=== PATIENT | female | born 1935 | race Caucasian/White ===

== ENCOUNTER 2017-05-18 18:03 | Observation (INO) | payer MEDICARE ==
--- OUTSIDE RECORDS SUMMARY | 2017-05-18 18:33 | XMS REPORT ---
:1935 External Reference #:[id number] Author Organization [facility] Address [address] [place] [address] Phone [phone] Care Team Providers Name Role Phone Wilfredo Erickson MD Care Team Information Canoe Builder Unavailable Veronica Baca MD Primary Care Physician Unavailable Payers Type Date Identification Numbers Payment Provider Subscriber Medicare Primary Effective: Policy Number: Medicare Reba Grullon 2000 [id number] PayID: [id number] [address] [place] [address] [facility] Part B Policy Number: [id number] [facility] Reba Grullon PayID: [id number] [address] [place] [address] Problems Date Description Provider Status Onset: 09/04/2012 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 She had severe reaction to TST there. Allergies, Adverse Reactions, Alerts Date Description Reaction Status Severity Comments 09/04/2012 Aspirin active 11/24/2015 Flu Vaccine flushing active Medications Medication Date Status Form Strength Qnty SIG Indications Ordering Provider Wilfredo 07/25 Active Solution 60mg/ml 60mg 60 mg sc q6mon Eric Cabrales Fioricet 06/26 Active Capsules 50-300-40 14cap take 1 mg s capsule by Samra, mouth M.D. every day as needed for migraines - maximum daily dose of 1 per day Plaquenil 05/24 Active Tablets 200mg 60tab take 1 M06.4 s tablet by Samra, mouth M.D. every day ongoing Allopurinol 11/23 Active Tablets 100mg 90tab Take 1 M10.9 s Tablet By Samra, Mouth M.D. Every Day Gabapentin Active Capsules 100mg 30cap take 1 in / s the Samra, morning M.DHoma Escitalopram Active Tablets 5mg once daily Unknown Oxalate /0000 Ramipril Active Capsules 10mg 1 by mouth Unknown /0000 every day Prevagen Active Capsules 10mg Unknown /0000 Hydroxychloroquine Active Tablets 200mg take one Unknown Sulfate /0000 tablet by mouth daily Colchicine Active Capsules 0.6mg take one Unknown /0000 by mouth every day as needed for gout flare up B12 Fast Dissolve 12/22 Hx Tablets 5000mcg 90tab sl daily Dispers s Samra - M.D. 12/26 Synvisc One 11/20 Hx Soln 48mg/6ML Prefill Samra, - Syringe M.D. 12/11 Prednisone 11/07 Hx Tablets 5mg 90tab 1 by mouth M06.4 s every Samra, - other day M.D. 12/11 Fioricet 05/24 Hx Capsules 50-300-40 14cap Take 1 M06.4 mg s Capsule By Samra, - Mouth M.D. 06/26 Every Day as Needed For Pain Migraines Hydrocodone-Acetami 01/10 Hx Tablets 5-325mg 30tab 1 tab by Miles oden s mouth Pichardo, - every 6 MD 05/28 hours needed for pain Colchicine 12/21 Hx Capsules 0.6mg 90cap take one M06.4 s by mouth Samra, - every day M.D. 05/24 Lyrica 01/13 Hx Capsules 25mg 30cap 1 po qhs S. /2012 s prn Poornima, - M.D. 07/14 Lyrica 12/16 Hx Capsules 50mg 90cap 1 po qhs Gamaliel S. s for 1 week Poornima, - then 2 qhs M.D. 01/13 for 1 week /2012 then 3 qhs Lyrica 08/12 Hx Capsules 75mg 60cap 1 po bid, s increase Riojas-Yo - to two helen, M.D. 12/16 tabs bid if no effect at 1 week Percocet 01/08 Hx Tablets 10-650mg 30tab 1-2 tabs s po daily Markell, - for pain M.D. 09/04 Gabapentin 01/08 Hx Capsules 100mg 120ca Take 1Cap ps At Bed May Markell, - Increase M.D. 12/16 To 2Caps /2012 At Bed Then 1Cap In Am And 2Caps At Bed Then 3Caps X3 Daily Oxycodone HCL 12/11 Hx Tablets 5mg 90tab 1 tab by s mouth Markell, - every 3 M.D. 06/01 hours Tylenol/Codeine #3 11/14 Hx Tablets 300-30mg 60tab 1-[address] s 4-6 hr prn Markell, - pain M.D. 12/16 Clindamycin HCL Hx Capsules 75mg tid Unknown /0000 - 12/16 Estradiol Hx Tablets 0.5mg 30tab 1/2 po qod Unknown /0000 s - 12/16 Ramipril Hx Capsules 10mg 90cap 1 po qd Unknown /0000 s - 02/19 Butalbital/Acetamin Hx Tablets 50-325-40 14tab Take 1 tab Samra , ophen/Caffeine /0000 mg s daily as Johan, - needed for 07/24 pain Warfarin Sodium Hx Tablets 5mg Unknown / - 05/31 Chlorhexidine Hx Solution 0.12% Unknown Gluconate Oral /0000 Rinse - 09/24 Multi For Her 50+ Hx Capsules 1 po qd Unknown / - 11/23 B-12 1000 00/ Hx Tablets 1000-400m 1 po daily Unknown /0000 Sub cg - 12/20 Neurontin /00 Hx Unknown / - 09/24 Iron /00 Hx Tablets 325(65Fe) 1 by mouth Unknown /0000 mg qod - 11/23 Ciprofloxacin HCL / Hx Tablets 250mg Unknown / - 10/25 Methylprednisolone Hx Tablets 4mg po as Unknown (Nicholas) / directed - 11/24 Minocycline HCL Hx Capsules 100mg 1 cap po Unknown / bid - 11/24 Medications Administered in Office Medication Date Status Form Strength Qnty SIG Indications Ordering Provider Prolia 02/11/ Administered Injection Johan Injection, 2017 Samra Denosumab, 1MG M.D. Synvisc Or 11/20/ Administered Injection Johan Synvisc-One 2016 Samra Injection 1 MG M.D. Prolia 07/25/ Administered Injection Johan Injection, 2017 Samra Denosumab, 1MG M.D. Depomedrol 40MG 06/05/ Administered Injection Estuardo F 2016 MD Aggie Triamcinolone 02/19/ Administered Injection Johan (Kenalog) 2016 Eric Cabrales Prolia 12/21/ Administered Injection Johan Injection, 2016 Samra Denosumab, 1MG M.D. Depomedrol 40MG 10/11/ Administered Injection Steve Sellers 2016 M.DHoma Depomedrol 80MG 06/23/ Administered Injection Alisa 2013 Eric Rojas Technetium TC 12/01/ Administered Injection Trenton Olivera 99M 2012 Maria Guadalupe Kelly M.D., FACC, Per Unit Dose FASNC Up To 40 Millicuries Depomedrol 80MG 05/09/ Administered Injection Steve Sellers, 2010 M.DHoma Vital Signs Date Vital Result Comment 05/12/2017 Height 64 inches 5'4" Weight 112.00 lb Heart Rate 100 /min BP Systolic Sitting 171 mmHg BP Diastolic Sitting 85 mmHg Respiratory Rate 14 /min Pain Level 2 BMI (Body Mass Index) 19.2 kg/m2 02/11/2017 Height 64 inches 5'4" Weight 115.00 lb Heart Rate 90 /min BP Systolic Sitting 140 mmHg BP Diastolic Sitting 86 mmHg Respiratory Rate 14 /min Pain Level 6 BMI (Body Mass Index) 19.7 kg/m2 12/27/2016 Height 64 inches 5'4" Weight 116.00 lb Heart Rate 70 /min BP Systolic 136 mmHg BP Diastolic 62 mmHg BMI (Body Mass Index) 19.9 kg/m2 12/11/2016 Height 64 inches 5'4" Weight 118.00 lb Heart Rate 80 /min BP Systolic Sitting 122 mmHg BP Diastolic Sitting 84 mmHg Respiratory Rate 14 /min Pain Level 1 BMI (Body Mass Index) 20.3 kg/m2 11/07/2016 Height 64 inches 5'4" Weight 116.00 lb Heart Rate 80 /min BP Systolic Sitting 140 mmHg BP Diastolic Sitting 90 mmHg Respiratory Rate 14 /min Pain Level 2 BMI (Body Mass Index) 19.9 kg/m2 10/30/2016 Height 64 inches 5'4" Weight 114.00 lb Heart Rate 88 /min BP Systolic Sitting 140 mmHg BP Diastolic Sitting 88 mmHg Respiratory Rate 15 /min BMI (Body Mass Index) 19.6 kg/m2 08/05/2016 Height 64 inches 5'4" Weight 111.00 lb Heart Rate 94 /min BP Systolic 138 mmHg BP Diastolic 77 mmHg Body Temperature 98.3 F BMI (Body Mass Index) 19.1 kg/m2 07/25/2016 Height 64 inches 5'4" Heart Rate 76 /min BP Systolic Sitting 160 mmHg BP Diastolic Sitting 90 mmHg Respiratory Rate 14 /min 06/05/2016 Height 64 inches 5'4" Weight 111.00 lb Heart Rate 62 /min BP Systolic Sitting 100 mmHg BP Diastolic Sitting 66 mmHg Respiratory Rate 14 /min Body Temperature 96.9 F Pain Level 6 BMI (Body Mass Index) 19.1 kg/m2 05/30/2016 Height 65 inches 5'5" Weight 111.00 lb Heart Rate 84 /min BP Systolic 153 mmHg BP Diastolic 77 mmHg Respiratory Rate 15 /min Body Temperature 98.3 F Pain Level 7 BMI (Body Mass Index) 18.5 kg/m2 05/24/2016 Height 65 inches 5'5" Weight 111.00 lb Heart Rate 80 /min BP Systolic Sitting 170 mmHg BP Diastolic Sitting 80 mmHg Respiratory Rate 14 /min Pain Level 2 BMI (Body Mass Index) 18.5 kg/m2 02/28/2016 Height 65 inches 5'5" Weight 104.00 lb Heart Rate 88 /min BP Systolic 194 mmHg BP Diastolic 92 mmHg BMI (Body Mass Index) 17.3 kg/m2 02/20/2016 Height 65 inches 5'5" Weight 109.00 lb Heart Rate 100 /min BP Systolic Sitting 160 mmHg BP Diastolic Sitting 70 mmHg Body Temperature 98.3 F Pain Level 1 BMI (Body Mass Index) 18.1 kg/m2 01/29/2016 Height 65 inches 5'5" Weight 105.38 lb Heart Rate 62 /min BP Systolic Sitting 140 mmHg BP Diastolic Sitting 80 mmHg Respiratory Rate 14 /min Body Temperature 97.3 F Pain Level 2 BMI (Body Mass Index) 17.5 kg/m2 01/26/2016 Height 65 inches 5'5" Weight 104.00 lb Heart Rate 60 /min Respiratory Rate 16 /min Body Temperature 97.1 F Pain Level 5 BMI (Body Mass Index) 17.3 kg/m2 01/16/2016 Height 65 inches 5'5" Weight 104.00 lb Body Temperature 98.5 F Pain Level 0 BMI (Body Mass Index) 17.3 kg/m2 01/01/2016 Height 65 inches 5'5" Weight 104.00 lb Heart Rate 64 /min BP Systolic Sitting 164 mmHg BP Diastolic Sitting 82 mmHg Respiratory Rate 16 /min Pain Level 0 BMI (Body Mass Index) 17.3 kg/m2 12/22/2015 Height 65 inches 5'5" Weight 102.50 lb Heart Rate 84 /min BP Systolic Sitting 136 mmHg BP Diastolic Sitting 78 mmHg Respiratory Rate 14 /min Body Temperature 98.6 F Pain Level 2 L shoulder BMI (Body Mass Index) 17.1 kg/m2 12/11/2015 Height 65 inches 5'5" Weight 104.00 lb Respiratory Rate 16 /min Pain Level 4 BMI (Body Mass Index) 17.3 kg/m2 11/29/2015 Height 65 inches 5'5" Weight 104.00 lb Heart Rate 85 /min BP Systolic 160 mmHg BP Diastolic 75 mmHg BMI (Body Mass Index) 17.3 kg/m2 11/24/2015 Height 65 inches 5'5" Weight 104.00 lb Heart Rate 80 /min BP Systolic Sitting 128 mmHg BP Diastolic Sitting 66 mmHg Body Temperature 97.9 F Pain Level 2 BMI (Body Mass Index) 17.3 kg/m2 11/09/2015 Height 65 inches 5'5" Weight 103.38 lb Heart Rate 76 /min BP Systolic Sitting 120 mmHg BP Diastolic Sitting 66 mmHg Respiratory Rate 14 /min Body Temperature 98.1 F Pain Level 3 BMI (Body Mass Index) 17.2 kg/m2 11/07/2015 Height 65 inches 5'5" Weight 105.00 lb Pain Level 5 BMI (Body Mass Index) 17.5 kg/m2 11/01/2015 Body Temperature 98.4 F 11/01/2015 Height 65 inches 5'5" Weight 100.00 lb Pain Level 10 03/29 not moving BMI (Body Mass Index) 16.6 kg/m2 10/12/2015 Height 65 inches 5'5" Weight 100.00 lb Heart Rate 97 /min BP Systolic 119 mmHg BP Diastolic 70 mmHg BMI (Body Mass Index) 16.6 kg/m2 12/21/2014 Height 64 inches 5'4" Weight 100.00 lb Heart Rate 112 /min BP Systolic Sitting 112 mmHg BP Diastolic Sitting 62 mmHg Respiratory Rate 16 /min BMI (Body Mass Index) 17.2 kg/m2 10/28/2014 Height 64 inches 5'4" Weight 101.00 lb Heart Rate 92 /min BP Systolic Sitting 138 mmHg BP Diastolic Sitting 64 mmHg Respiratory Rate 16 /min BMI (Body Mass Index) 17.3 kg/m2 09/27/2014 Height 64 inches 5'4" Weight 102.50 lb Heart Rate 88 /min BP Systolic Sitting 120 mmHg BP Diastolic Sitting 52 mmHg Respiratory Rate 16 /min BMI (Body Mass Index) 17.6 kg/m2 04/14/2014 Height 64 inches 5'4" Weight 102.00 lb Heart Rate 82 /min BP Systolic 176 mmHg BP Diastolic 82 mmHg BMI (Body Mass Index) 17.5 kg/m2 07/15/2013 Height 65 inches 5'5" Heart Rate 100 /min BP Systolic 125 mmHg BP Diastolic 72 mmHg 07/08/2013 Height 65 inches 5'5" Weight 108.00 lb Heart Rate 91 /min BP Systolic 172 mmHg BP Diastolic 86 mmHg BMI (Body Mass Index) 18.0 kg/m2 06/23/2013 Height 64.5 inches 5'4.50" Weight 110.00 lb Heart Rate 74 /min BP Systolic Sitting 122 mmHg BP Diastolic Sitting 78 mmHg BMI (Body Mass Index) 18.6 kg/m2 01/13/2013 Heart Rate 84 /min BP Systolic Sitting 120 mmHg BP Diastolic Sitting 76 mmHg Respiratory Rate 16 /min 09/18/2012 Height 66 inches 5'6" Weight 110.00 lb Heart Rate 64 /min BP Systolic 118 mmHg BP Diastolic 66 mmHg Body Temperature 98.4 F BMI (Body Mass Index) 17.8 kg/m2 09/04/2012 Height 66 inches 5'6" Weight 110.00 lb Heart Rate 72 /min BP Systolic 128 mmHg BP Diastolic 60 mmHg Body Temperature 98.4 F BMI (Body Mass Index) 17.8 kg/m2 Results Test Date Test Result H/L Range Note Connective Tissue Panel 12/13/2016 Anti-Nuclear Antibody 0.2 U 1 Cyclic Citrullinated Peptide <15.6 U 2 Interpretation See Comment 3 Laboratory test finding 12/13/2016 Rheumatoid Factor <15 IU/mL <15 4 Cyclic Citrullinated Pep Igg TNP () 5 Uric Acid 6.7 mg/dL High 2.3-6.6 6 CBC Auto Diff 12/13/2016 White Blood Count 8.3 10^3/uL 3.5-10.8 Red Blood Count 3.12 10^6/uL Low 4.0-5.4 Hemoglobin 11.9 g/dL Low 12.0-16.0 Hematocrit 34 % Low 35-47 Mean Corpuscular Volume 110 fL High 80-97 Mean Corpuscular Hemoglobin 38 pg High 27-31 Mean Corpuscular HGB Conc 35 g/dL 31-36 Red Cell Distribution Width 14 % 10.5-15 Platelet Count 335 10^3/uL 150-450 Mean Platelet Volume 7 um3 Low 7.4-10.4 Abs Neutrophils 6.2 10^3/uL 1.5-7.7 Abs Lymphocytes 1.5 10^3/uL 1.0-4.8 Abs Monocytes 0.5 10^3/uL 0-0.8 Abs Eosinophils 0 10^3/uL 0-0.6 Abs Basophils 0.1 10^3/uL 0-0.2 Abs Nucleated RBC 0 10^3/uL Granulocyte % 74.7 % 38-83 Lymphocyte % 17.6 % Low 25-47 Monocyte % 6.2 % 1-9 Eosinophil % 0.4 % 0-6 Basophil % 1.1 % 0-2 Nucleated Red Blood Cells % 0 Comp Metabolic Panel 12/13/2016 Sodium 134 mmol/L 133-145 Potassium 4.9 mmol/L 3.5-5.0 Chloride 99 mmol/L Low 101-111 Co2 Carbon Dioxide 25 mmol/L 22-32 Anion Gap 10 mmol/L 2-11 Glucose 96 mg/dL 70-100 Blood Urea Nitrogen 22 mg/dL 6-24 Creatinine 0.93 mg/dL 0.51-0.95 BUN/Creatinine Ratio 23.7 High 8-20 Calcium 9.6 mg/dL 8.6-10.3 Total Protein 7.0 g/dL 6.4-8.9 Albumin 4.5 g/dL 3.2-5.2 Globulin 2.5 g/dL 2-4 Albumin/Globulin Ratio 1.8 1-3 Total Bilirubin 0.40 mg/dL 0.2-1.0 Alkaline Phosphatase 92 U/L 34-104 Alt 13 U/L 7-52 Ast 21 U/L 13-39 Egfr Non- 57.9 >60 Egfr 74.4 >60 7 Laboratory test finding 12/13/2016 C Reactive Protein 3.11 mg/L < 5.00 8 Erythrocyte Sed Rate 10 mm/Hr 0-40 9 Laboratory test finding 06/25/2016 Erythrocyte Sed Rate 10 mm/Hr 0-40 10 C Reactive Protein 2.33 mg/L < 5.00 11 Uric Acid 4.8 mg/dL 2.3-6.6 12 CBC Auto Diff 06/25/2016 White Blood Count 6.8 10^3/uL 3.5-10.8 Red Blood Count 3.46 10^6/uL Low 4.0-5.4 Hemoglobin 12.6 g/dL 12.0-16.0 Hematocrit 38 % 35-47 Mean Corpuscular Volume 110 fL High 80-97 13 Mean Corpuscular Hemoglobin 37 pg High 27-31 Mean Corpuscular HGB Conc 33 g/dL 31-36 Red Cell Distribution Width 15 % 10.5-15 Platelet Count 302 10^3/uL 150-450 Mean Platelet Volume 7 um3 Low 7.4-10.4 Abs Neutrophils 4.4 10^3/uL 1.5-7.7 Abs Lymphocytes 1.6 10^3/uL 1.0-4.8 Abs Monocytes 0.6 10^3/uL 0-0.8 Abs Eosinophils 0.1 10^3/uL 0-0.6 Abs Basophils 0.1 10^3/uL 0-0.2 Abs Nucleated RBC 0 10^3/uL Granulocyte % 64.4 % 38-83 Lymphocyte % 24.1 % Low 25-47 Monocyte % 9.1 % High 1-9 Eosinophil % 1.0 % 0-6 Basophil % 1.4 % 0-2 Nucleated Red Blood Cells % 0 Comp Metabolic Panel 06/25/2016 Sodium 138 mmol/L 133-145 Potassium 4.9 mmol/L 3.5-5.0 Chloride 100 mmol/L Low 101-111 Co2 Carbon Dioxide 29 mmol/L 22-32 Anion Gap 9 mmol/L 2-11 Glucose 106 mg/dL High 70-100 Blood Urea Nitrogen 30 mg/dL High 6-24 Creatinine 1.02 mg/dL High 0.51-0.95 BUN/Creatinine Ratio 29.4 High 8-20 Calcium 10.1 mg/dL 8.6-10.3 Total Protein 7.4 g/dL 6.4-8.9 Albumin 4.7 g/dL 3.2-5.2 Globulin 2.7 g/dL 2-4 Albumin/Globulin Ratio 1.7 1-3 Total Bilirubin 0.60 mg/dL 0.2-1.0 Alkaline Phosphatase 108 U/L High 34-104 Alt 15 U/L 7-52 Ast 28 U/L 13-39 Egfr Non- 52.1 >60 Egfr 67.1 >60 14 Laboratory test finding 01/11/2016 Surgical Pathology SEE RESULT BELOW 15, 16 Laboratory test finding 11/24/2015 Gram Stain Smear <pending> Laboratory test finding 11/24/2015 Body Fluid Crystals <pending> Laboratory test finding 11/24/2015 MRSA/S. aureus Ssti SEE RESULT BELOW 17, 18 PCR Body Fluid Cell Count 11/24/2015 Body Fluid Source Synovial Fluid 17 Body Fluid Appearance Cloudy 17 Body Fluid Color [place] 17 Body Fluid Volume 3 mL 17 Body Fluid Neutrophils 3 % 17 Body Fluid Lymph 55 % 17 Body Fluid [place] 42 % 17 Body Fluid Total Cells Counted 100 17 Body Fluid WBC 1008 /mcL 17, 19 Body Fluid RBC 85562 /mcL 17 Fluid Reviewed By (SEE NOTE) 17, 20 Laboratory test 11/24/2015 Body Fluid Crystals (SEE NOTE) 17, 21 finding Body Fluid C&S 11/24/2015 Body Fluid Cult Gram SEE RESULT BELOW 17, 22 Stain Laboratory test 11/09/2015 Myeloperoxidase AB <0.2 U 23 finding Proteinase 3 <0.2 U 24 Comp Metabolic Panel 11/09/2015 Sodium 133 mmol/L 133-145 Potassium 5.1 mmol/L High 3.5-5.0 Chloride 100 mmol/L Low 101-111 Co2 Carbon Dioxide 26 mmol/L 22-32 Anion Gap 7 mmol/L 2-11 Glucose 94 mg/dL 70-100 Blood Urea Nitrogen 24 mg/dL 6-24 Creatinine 1.12 mg/dL High 0.51-0.95 BUN/Creatinine Ratio 21.4 High 8-20 Calcium 9.2 mg/dL 8.6-10.3 Total Protein 6.8 g/dL 6.4-8.9 Albumin 4.2 g/dL 3.2-5.2 Globulin 2.6 g/dL 2-4 Albumin/Globulin Ratio 1.6 1-3 Total Bilirubin 0.30 mg/dL 0.2-1.0 Alkaline Phosphatase 106 U/L High 34-104 Alt 8 U/L 7-52 Ast 18 U/L 13-39 Egfr Non- 46.8 >60 Egfr 60.2 >60 25 CBC Auto Diff 11/09/2015 White Blood Count 6.9 10^3/uL 3.5-10.8 Red Blood Count 3.07 10^6/uL Low 4.0-5.4 Hemoglobin 11.4 g/dL Low 12.0-16.0 Hematocrit 34 % Low 35-47 Mean Corpuscular Volume 111 fL High 80-97 26 Mean Corpuscular Hemoglobin 37 pg High 27-31 Mean Corpuscular HGB Conc 34 g/dL 31-36 Red Cell Distribution Width 16 % High 10.5-15 Platelet Count 396 10^3/uL 150-450 Mean Platelet Volume 7 um3 Low 7.4-10.4 Abs Neutrophils 3.7 10^3/uL 1.5-7.7 Abs Lymphocytes 2.4 10^3/uL 1.0-4.8 Abs Monocytes 0.6 10^3/uL 0-0.8 Abs Eosinophils 0.1 10^3/uL 0-0.6 Abs Basophils 0.1 10^3/uL 0-0.2 Abs Nucleated RBC 0 10^3/uL Granulocyte % 53.8 % 38-83 Lymphocyte % 34.5 % 25-47 Monocyte % 9.0 % 1-9 Eosinophil % 1.8 % 0-6 Basophil % 0.9 % 0-2 Nucleated Red Blood Cells % 0 Laboratory test finding 11/09/2015 C Reactive Protein 36.03 mg/L High &lt ; 5.00 27 Cyclic Citrullinated Pep Igg <15.6 U 28 Rheumatoid Factor <15 IU/mL <15 29 Uric Acid 9.7 mg/dL High 2.3-6.6 30 Anca AB Ser If 11/09/2015 C-Anca Negative Negative P-Anca Positive Negative 31 Laboratory test finding 11/09/2015 Anti Nuclear Antibody 0.3 U 32 Laboratory test finding 09/30/2014 Vitamin B12 245 pg/mL 180-914 33 TSH (Thyroid Stim Horm) 2.43 ?IU/mL 0.34-5.60 1 REFERENCE VALUE <=1.0 (Negative) 2 REFERENCE VALUE <20.0 (Negative) 3 Tests for antibodies to dsDNA and AMBER antigens are not performed automatically unless the RYLIE result is > or= 3.0 U. Studies performed at [facility] indicate that positive RYLIE results <3.0 U are rarely accompanied by positive second order tests. Test Performed by: [facility] [address] [id number] Test Performed by: [facility] [address] [place] [address] 5 Cancelled due to duplicate test on this order Test Performed by: [place] [id number] [id number] Please check labs this week 7 Because ethnic data is not always readily available, this report includes an eGFR for both -Americans and non- Americans. The National Kidney Disease Education Program (NKDEP) does not endorse the use of the MDRD equation for patients that are not between the ages of 18 and 70, are , have extremes of body size, muscle mass, or nutritional status, or are non- or non-. According to the National Kidney Foundation, irrespective of diagnosis, the stage of the disease is based on the level of kidney function: Stage Description GFR(mL/min/1.73 m(2)) 1 Kidney damage with normal or decreased GFR 90 2 Kidney damage with mild decrease in GFR 60-89 3 Moderate decrease in GFR 30-59 4 Severe decrease in GFR 15-29 5 Kidney failure <15 (or dialysis) 8 Acute inflammation: >10.00 9 Please check labs this week 10 Please check labs this week 11 Acute inflammation: >10.00 12 Please check labs this week 13 Consistent with previous results on 11/09/15. 14 Because ethnic data is not always readily available, this report includes an eGFR for both -Americans and non- Americans. The National Kidney Disease Education Program (NKDEP) does not endorse the use of the MDRD equation for patients that are not between the ages of 18 and 70, are , have extremes of body size, muscle mass, or nutritional status, or are non- or non-. According to the National Kidney Foundation, irrespective of diagnosis, the stage of the disease is based on the level of kidney function: Stage Description GFR(mL/min/1.73 m(2)) 1 Kidney damage with normal or decreased GFR 90 2 Kidney damage with mild decrease in GFR 60-89 3 Moderate decrease in GFR 30-59 4 Severe decrease in GFR 15-29 5 Kidney failure <15 (or dialysis) 15 [id number] 16 SEE RESULT BELOW Name: REBA GRULLON : [address]: Miles Pichardo MD Acct: [id number] Unit: [id number] AGE: 80 Location: [facility] Re01/11/16 SEX: F Status: REG [facility] [place] SPEC: [id number] SINTIA: 01/11/16-[address]: Miles Pichardo MD REQ: [id number] RECD: 01/12/16-1025 STATUS: SOUT _ ORDERED: LEVEL I COMMENTS: [id number] FINAL DIAGNOSIS Index, long and ring fingers, left, hardware removal: Foreign body (orthopedic hardware) (Gross diagnosis). PRE-OPERATIVE DIAGNOSIS Significant contractures and degenerative changes in left hand. GROSS DESCRIPTION The specimen is received fresh labeled, Explanted Left Index, Long and Ring Fingers Metacarpal Pyrocarbon Arthroplastics, and consists of three convex and three concave tapered black metallic pins ranging in size from 1.5 x 1.2 x 0.3-0.2 cm to 3.6 x 1.5- 0.3 x 1.2-0.3. No inscriptions are identified. Per established hospital medical staff protocol, no tissue is submitted. Gross only. Signed (signature on file) Konrad Looney MD [id number] END OF REPORT * ML=Testing performed at Main Lab DEPARTMENT OF PATHOLOGY, [address] [place] [address] Konrad Looney M.D. Director [facility] # [id number] 17 [id number] 18 SEE RESULT BELOW Name: KMREBA : [address]: Johan Cabrales MD Acct: [id number] Unit: [id number] AGE: 80 Location: [facility] Re11/24/15 SEX: F Status: REG REF SPEC: [id number] SINTIA: 11/24/15-1154 [facility] DR: Johan Cabrales MD REQ: [id number] RECD: 11/24/15 STATUS: COMP _ SOURCE: BODY FLUID SPDESC:NOS ORDERED: MRSA/SA SSTI Procedure Result Reported Site MRSA/S. aureus SSTI PCR Final 11/24/15- 2140 ML Organism 1 MRSA NEGATIVE Organism 2 S.AUREUS NEGATIVE * ML - MAIN LAB ([facility]) . END OF REPORT * ML=Testing performed at Main Lab DEPARTMENT OF PATHOLOGY, [address] [place] [address] Konrad Looney M.D. Director [facility] # [id number] 19 -- REFERENCE VALUE -- Synovial: <150/mcL Peritoneal: <500/mcL Pleural: <500/mcL Pericardial: <500/mcL 20 Predominantly macrophages. No evidence of an acute inflammatory response. No evidence of malignancy. Reviewed by Janey Reynaga MD 21 Calcium pyrophosphate 22 SEE RESULT BELOW Name: REBA GRULLON : [address]: Johan Cabrales MD Acct: [id number] Unit: [id number] AGE: 80 Location: [facility] Re11/24/15 SEX: F Status: REG REF SPEC: [id number] SINTIA: 11/24/151154 [facility] DR: Johna Cabrales MD REQ: [id number] RECD: 11/24/15 STATUS: COMP _ SOURCE: BODY FLUID SPDESC: ORDERED: JUAN R Breen/BULMARO COMMENTS: [id number] Procedure Result Reported Site Body Fluid Gram Stain Final 11/25/15728 ML 1+ Neutrophils 1+ Nucleated Cells No Organisms Seen Preparation By Cytospin Smear Body Fluid Culture Final 11/28/15810 ML No Growth Day 4 * ML - MAIN LAB ([facility]) . END OF REPORT * ML=Testing performed at Main Lab DEPARTMENT OF PATHOLOGY, [address] [place] [address] Konrad Looney M.D. Director [facility] # [id number] 23 REFERENCE VALUE <0.4 (Negative) Test Performed by: [place] [address] [facility] Worker: Dewayne Pennington II, M.D., Ph.D. 24 REFERENCE VALUE <0.4 (Negative) Test Performed by: [place] [address] [facility] Worker: Dewayne Pennington II, M.D., Ph.D. 25 Because ethnic data is not always readily available, this report includes an eGFR for both -Americans and non- Americans. The National Kidney Disease Education Program (NKDEP) does not endorse the use of the MDRD equation for patients that are not between the ages of 18 and 70, are , have extremes of body size, muscle mass, or nutritional status, or are non- or non-. According to the National Kidney Foundation, irrespective of diagnosis, the stage of the disease is based on the level of kidney function: Stage Description GFR(mL/min/1.73 m(2)) 1 Kidney damage with normal or decreased GFR 90 2 Kidney damage with mild decrease in GFR 60-89 3 Moderate decrease in GFR 30-59 4 Severe decrease in GFR 15-29 5 Kidney failure <15 (or dialysis) 26 Consistent with previous results on 09/11/15. 27 Acute inflammation: >10.00 28 REFERENCE VALUE <20.0 (Negative) Test Performed by: [place] [address] [facility] Worker: Dewayne Pennington II, M.D., Ph.D. 29 Test Performed by: [place] [address] [facility] Worker: Dewayne Pennington II, M.D., Ph.D. 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 Suggest further testing for anti-myeloperoxidase (anti-MPO) antibodies, if clinically indicated. ADDITIONAL INFORMATION This test was developed and its performance characteristics determined by [facility] in a manner consistent with CLIA requirements. This test has not been cleared or approved by the U.S. Food and Drug Administration. Test Performed by: [facility] [address] [facility] Worker: Dewayne Pennington II, M.D., Ph.D. 32 REFERENCE VALUE <=1.0 (Negative) Test Performed by: [place] [address] [facility] Worker: Dewayne Pennington II, M.D., Ph.D. 33 Normal Range 180 to 914 Indeterminate Range 145 to 180 Deficient Range <145 Procedures Date CPT Code Description Status 02/11/2017 46438 Admin Of Inj Completed 11/20/2016 Inject/Drain Joint/Bursa Major Completed 07/25/2016 58525 Chemotherpy Admin Subcutaneous/Im Non-Hormonal Completed Anti-Neoplastic 06/05/201656316 Inject/Drain Joint/Bursa Major Completed 02/20/201628367 Inject/Drain Joint/Bursa Major Completed 01/11/2016 61154 Remove Implant From Finger/Hand Completed 01/11/2016 24506 Remove Implant From Finger/Hand Completed 01/11/2016 95105 Remove Implant From Finger/Hand Completed 01/11/2016 63093 Tenolysis Extensor Tendon Hand Or Finger Completed 01/11/2016 79081 Tenolysis Extensor Tendon Hand Or Finger Completed 01/11/2016 46955 Tenolysis Extensor Tendon Hand Or Finger Completed 01/11/2016 49436 Tenotomy Extensor Hand Or Finger Open Completed 01/11/2016 91814 Arthroplasty Metacarpophalangeal Joint W/Prosthetic Completed Implant 01/11/2016 95789 Arthroplasty Metacarpophalangeal Joint W/Prosthetic Completed Implant 01/11/2016 09549 Arthroplasty Metacarpophalangeal Joint W/Prosthetic Completed Implant 01/11/2016 57568 Arthroplasty Metacarpophalangeal Joint W/Prosthetic Completed Implant 01/11/2016 59589 Arthroplasty Metacarpophalangeal Joint W/Prosthetic Completed Implant 01/11/2016 37860 Arthroplasty Metacarpophalangeal Joint W/Prosthetic Completed Implant 01/11/2016 88492 Arthrodesis IP JT W/Wo Fixation Completed 12/22/2015 96089 Chemotherpy Admin Subcutaneous/Im Non-Hormonal Completed Anti-Neoplastic 11/24/2015 81781 Inject/Drain Joint/Bursa Major Completed 10/12/2015 86583 Inject/Drain Joint/Bursa Major Completed 07/08/2013 16991 Rad Exam; Hand Comp Completed 06/23/2013 80902 Inject Tendon Sheath Or Ligament Aponeurosis Eg Plantar Completed Fascia 03/10/2012 38306 Rad Shoulder Comp, Min. 2 Views Completed 02/14/2012 45460 Rad Exam; Hand Comp Completed 12/12/2011 19656 Rad Shoulder Comp, Min. 2 Views Completed 12/06/2011 25364 Arthroplasty,Total Shoulder Replacement (TSR) Completed 12/06/2011 83832 Arthroplasty,Total Shoulder Replacement (TSR) Completed 12/03/2011 41807 ECHO Transthoracic, Real-Time 2D With Doppler And Color Completed Flow 12/02/2011 16895 Stress Test Completed 12/02/2011 05168 Myocardial Perfusion Imaging Tomographic (Spect) Completed Multiple Studies 11/29/2011 92237 EKG Tracing & Interpretation Completed 11/22/2011 83704 Rad Shoulder Comp, Min. 2 Views Completed 09/26/2011 Mammogram Completed 05/09/2010 04545 Rad Shoulder Comp, Min. 2 Views Completed 05/09/2010 45517 Inject/Drain Joint/Bursa Major Completed Encounters Type Date Location Provider CPT E/M Dx Office Visit 02/11/2017 [facility] Johan Cabrales M.D. 92544 M06.4 2:40p Of Briana G43.109 M10.9 M18.0 Z79.899 M81.8 M81.0 Office Visit 12/27/2016 9:45a [facility] Gamaliel Cast 72053 G43.109 Eric Noguera Office Visit 12/11/2016 4:20p [facility] Of Johan Cabrales 11560 M06.4 Briana Reyes M10.9 M18.0 Z79.899 G43.001 M25.561 M81.8 Office Visit 11/07/2016 4:20p [facility] Of Johan Cabrales 04172 M06.4 Briana Reyes R76.0 M10.9 Z79.899 M19.012 M17.11 Office Visit 10/30/2016 2:00p [facility] Gamaliel Noguera 08997 G43.001 Services Of Briana Reyes Office Visit 08/05/2016 11:30a [facility] Of Estuardo Mora 88472 M17.11 Shannan Marcial MD Office Visit 07/25/2016 11:40a [facility] Johan Cabrales 18094 M19.012 Of Briana Reyes M81.8 M10.9 Z79.899 G43.001 Office Visit 06/05/2016 2:00p [facility] Estuardo Marcial 30823 M17.11 Of Shannan LARIOS Office Visit 05/30/2016 1:00p [facility] Estuardo Marcial 41053 M19.012 Of Shannan LARIOS S46.012A Office Visit 05/24/2016 10:20a [facility] Of Johan Cabrales 60928 M06.4 Briana Reyes M81.8 M71.40 M20.022 Z79.899 M10.9 G43.001 Office Visit 02/20/2016 9:40a [facility] Of Johan Cabrales 45564 M81.8 Briana Reyes M71.40 M75.52 Office Visit 01/29/2016 11:20a [facility] Of Johan Cabrales, 19285 M10.9 Briana M.DHoma N18.9 M81.8 M71.40 Office Visit 12/22/2015 11:00a [facility] Of Johan Cabrales, 17105 M10.9 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 N18.9 M81.8 M71.40 Z79.899 M24.542 M25.512 Office Visit 12/11/2015 2:15p [facility] [address] M20.022 C.M.A. M24.542 Office Visit 11/29/2015 11:00a [facility] Of Steve Sellers M.D. 16157 S72.8x2D C.M.A. M12.512 Office Visit 11/24/2015 10:20a [facility] Johan Cabrales, 81928 M25.512 Of Briana Reyes M06.4 M10.9 Z79.899 R76.0 R22.32 Office Visit 11/09/2015 10:00a [facility] Of Johan Cabrales, 95803 M06.4 Agent Licensing Clerk M.DHoma M10.9 Z79.899 M65.30 M24.542 M81.0 Office Visit 11/07/2015 2:30p [facility] [address] M24.542 C.M.A. M20.022 Office Visit 11/01/2015 3:10p [facility] Of Steve Sellers M.D. 82935 M65.812 C.M.A. S42.125G Office Visit 10/12/2015 2:30p [facility] Of Steve Sellers M.D. 60952 S42.125G C.M.A. M19.012 Office Visit 12/21/2014 10:15a [facility] Gamaliel Noguera, 11462 G31.84 M.D. Office Visit 10/28/2014 10:45a [facility] Gamaliel Noguera 00888 331.83 M.D. Office Visit 09/27/2014 10:45a [facility] Gamaliel Noguera 84576 331.83 M.D. Office Visit 04/14/2014 1:30p [facility] Of Tor Guillaume M.D. 94767 923.00 C.M.AHoma Office Visit 09/07/2013 9:30a [facility] Gamaliel ArmandoHoma Noguera, 88807 353.0 Services Of 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 Office Visit 07/15/2013 11:15a [facility] Of Alisa Rojas 71783 714.0 C.M.[place] M.DHoma Office Visit 07/08/2013 10:00a [facility] Of Alisa Rojas, 63065 714.0 C.M.AHoma M.DHoma Office Visit 06/23/2013 1:30p [facility] Of Alisa Rojas 18755 727.03 Agent Licensing Clerk At [place] M.D. Office Visit 01/13/2013 1:45p [facility] Gamaliel Noguera, 50193 353.0 Services Of 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 Office Visit 12/21/2012 10:30a [facility] Of Ginny 50234 354.9 Shannan Bennett M.D. Office Visit 12/16/2012 1:00p [facility] Gamaliel Noguera, 78752 953.4 Services Of 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 Office Visit 09/18/2012 10:10a [facility] Jer Landry 31796 526.89 Infectious Diseases Eric Douglas Office Visit 09/04/2012 9:30a [facility] Jer Landry 45229 526.89 Infectious Diseases Eric Douglas Office Visit 08/12/2012 9:30a [facility] Of Ginny 72790 354.9 Shannan Bennett M.D. Office Visit 06/24/2012 10:15a [facility] [place] 45191 719.44 Shannan Bennett M.D. Office Visit 05/27/2012 1:00p [facility] [place] 03947 715.94 Shannan Bennett M.D. Office Visit 04/10/2012 2:30p [facility] Of Tor Guillaume M.D. 94299 723.4 Shannan 715.91 Office Visit 03/10/2012 1:15p [facility] Of Tor Guillaume M.D. 65375 723.4 C.M.A. 715.91 Office Visit 12/04/2011 9:00a [facility] [place] Kelly, 18380 794.31 Briana Reyes, [facility], FASNC 786.05 Office Visit 11/29/2011 11:15a [facility] [place] Kelly, 55054 794.31 Briana Reyes, [facility], FASNC 786.05 Office Visit 11/05/2011 11:30a [facility] Of Tor Guillaume M.D. 17775 715.91 C.M.A. Office Visit 07/03/2010 1:00p [facility] Of Tor Guillaume M.D. 16360 715.91 C.M.A. Office Visit 06/20/2010 9:45a [facility] Of Steve Sellers M.D. 92216 716.91 C.M.A. 840.4 Office Visit 05/09/2010 8:45a [facility] Of Steve Sellers M.D. 67725 840.4 C.M.A. 716.91 Office Visit 11/25/2006 10:00a [facility] Of Derrick Coffman, 92958 782.0 Briana Reyes Office Visit 11/11/2006 3:45p [facility] Derrick Coffman, 28503 723.4 Briana Reyes Plan of Care Future Appointment(s):07/02/2017 10:20 am - Johan Cabrales M.D. 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
[2017-05-18] MEDS ORDERED: Tetan/Diph/Pertus SYR(Tdap)* 0.5 ML SYR(BOOSTRIX) use SYR IM ONE (18:52)
--- NOTE | 2017-05-18 19:41 | RAD ---
INDICATION: RIGHT elbow pain post fall. Good range of motion. COMPARISON: No relevant prior exams available on the [facility] PACS for comparison. TECHNIQUE: AP, lateral, and oblique views RIGHT elbow. REPORT AND IMPRESSION: Negative for joint effusion, fracture, or malalignment. Small dystrophic calcification adjacent to the lateral epicondyles favoring chronic lateral epicondylitis. Mild dorsal soft tissue swelling.
--- NOTE | 2017-05-18 19:43 | RAD ---
Indication: Pain post fall. Comparison: June 09, 2015 Technique: Upright AP 1858 hours Report: Elevated lung volumes and patchy rarefaction of the mid to upper lung zone interstitial markings. Small calcified granulomas at the LEFT mid lung zone and calcified LEFT hilar lymph nodes without change. Negative for cardiomegaly. Unremarkable central pulmonary vasculature and mediastinal contours. Prosthetic RIGHT glenohumeral joint. Advanced arthropathy of the LEFT shoulder. IMPRESSION: 1. No traumatic injury or acute intrathoracic process evident. 2. Stigmata of chronic obstructive pulmonary disease and previous granulomatous disease.
[2017-05-18 20:04] LABS: ABS Basophils 0.1 10^3/ul (0-0.2); ABS Eosinophils 0 10^3/ul (0-0.6); ABS Lymphocytes 1.3 10^3/ul (1.0-4.8); ABS Monocytes 0.4 10^3/ul (0-0.8); ABS Neutrophils 7.7 10^3/ul (1.5-7.7); ABS Nucleated RBC 0 10^3/ul; Eosinophil % 0.1 % (0-6); Hematocrit 37 % (35-47); Hemoglobin 12.3 g/dl (12.0-16.0); Lymphocyte % 13.5 % (25-47); Mean Corpuscular HGB Conc 33 g/dl (31-36); Mean Corpuscular Hemoglobin 37 pg (27-31); Mean Corpuscular Volume 112 fL (80-97); Mean Platelet Volume 6.7 um3 (7.4-10.4); Nucleated Red Blood Cells % 0.1; Platelet Count 339 10^3/ul (150-450); Red Blood Count 3.29 10^6/ul (4.0-5.4); Red Cell Distribution Width 14 % (10.5-15); White Blood Count 9.3 10^3/ul (3.5-10.8)
[2017-05-18 20:10] LABS: INR 0.82 (0.77-1.02)
[2017-05-18 20:14] LABS: EGFR Non-African American 46.2 (>60)
--- NOTE | 2017-05-18 20:16 | RAD ---
Indication: Near syncopal episode. Fall. Comparison: July 03, 2015 CT. Technique: Noncontrast CT vertex of skull through foramen magnum. Report: Moderately severe prominence of the cerebral sulci. Mild prominence of the cerebellar fissures. Negative for eaton matter white matter obscuration, intra or extra-axial hemorrhage, or mass effect. Decreased density in the periventricular and subcortical white matter while non-specific is most likely due to chronic microangiopathy. No suspicious abnormality at the partially visualized orbits. Negative for calvarial or skull base fracture or suspicious focal osseous lesion. Negative for scalp hematoma. IMPRESSION: Involutional change and stigmata of chronic small vessel ischemic disease. No acute intracranial process or traumatic injury evident.
[2017-05-18 22:01] LABS: Urine Appearance Cloudy; Urine Blood Negative (Negative); Urine Color Yellow; Urine Ketones Trace (Negative); Urine Protein Negative (Negative); Urine Specific Gravity 1.017 (1.010-1.030); Urine Urobilinogen Negative (Negative)
[2017-05-18] MEDS ORDERED: NS 0.9% 1000 ML* 1,000 ML IV SCH (23:15)
--- NOTE | 2017-05-18 23:45 | HP ---
H&P (Free Text) History and Physical: PCP: Sania Baca MD Rheumatology: Dr Cabrales Date/Time: 05/18/2017 7475 CC: fall, generalized weakness HPI: Mrs Grullon is an 81YO female HX HTN, deforming CPPD disease, migraines, & depression reports being at home when she believe she tripped on a rug. She recalls falling & landing. She did hit her head, but did not lose consciousness. She denies prodromal symptoms, specifically chest pain, SOB, palpitations, focal W/N/T, slurred speech, or other issues. She was on the floor for ~10 minutes. ED evaluation reveals a UTI, dehydration, & generalized weakness. She will be observed for IVFs, initiation of ABX, and PT evaluation. PMedHx HTN pseudogout/CPPD disease migraines depression Ambulatory Orders Butalb/Acetamin/Caff TAB* [Fioricet TAB*] 1 tab PO DAILY PRN 08/12/12 Escitalopram (NF) [Lexapro (NF)] 5 mg PO DAILY 01/03/16 Allopurinol TAB* [Zyloprim 100 MG TAB*] 100 mg PO DAILY 05/18/17 Cyanocobalamin TAB* [Vitamin B12 TAB*] 1,000 mcg PO DAILY 05/18/17 Gabapentin CAP(*) [Neurontin 100 mg CAP(*)] 100 mg PO DAILY 05/18/17 Hydroxychloroquine TAB* [Plaquenil TAB*] 200 mg PO DAILY 05/18/17 Ramipril CAP* [Altace CAP*] 10 mg PO DAILY 05/18/17 predniSONE TAB* [Deltasone TAB*] 5 mg PO DAILY 05/18/17 Allergies aspirin Allergy (Verified 05/18/17 18:08) Rash Penicillins Allergy (Verified 05/18/17 18:08) Unknown Reaction Details PSurgHx tonsillectomy L 3rd & 4th PIJ arthoplasties x2 R shoulder reverse arthroplasty L TKA SocHx: no tobacco, occasional alcohol, no recreational drugs; , 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; 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; 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 FamHx: reviewed & non-contributory to presentation ROS: as above, otherwise reviewed and all were negative vitals: Vital Signs Temp 36.7 C 05/19/17 02:43 Pulse 78 05/19/17 02:43 Resp 16 05/19/17 02:43 BP 144/66 05/19/17 02:43 Pulse Ox 96 05/19/17 02:43 Intake & Output 05/18/17 05/18/17 05/19/17 11:59 23:59 11:59 Intake Total 1000 Balance 1000 Weight 50.802 kg 50.802 kg Intake: IV Fluids 1000 Constitutional: NAD, normally developed, thin elderly white female HEENM: atraumatic; sclera/conjunctiva: anicteric/clear; hearing: clinically intact; oropharynx: clear, moist Neck: soft tissue: non-tender; thyroid: normal Pulmonary: clear to auscultation bilaterally, good aeration, no accessory muscle use CV: RR/RR, normal S1S2, no carotid bruit, no jugular venous distention, 2+ B DP/ PT, no edema Abdominal: soft, non-distended, non-tender, no rebound/guarding/rigidity, normoactive bowel sounds, no hepatosplenomegaly or masses, no costovertebral angle tenderness Musculoskeletal: general: deformities of B wrist/hands Integumental: diffuse, variously aged ecchymoses Psychiatric orientation: AA&O to PPS affect: calm mood: cooperative eye contact: good content: reliable responses: timely insight: good Testing: Lab Results 05/18/17 05/18/17 05/18/17 Range/Units 19:46 19:46 19:46 WBC 9.3 (3.5-10.8) 10^3/ul RBC 3.29 L (4.0-5.4) 10^6/ul Hgb 12.3 (12.0-16.0) g/dl Hct 37 (35-47) % MCV 112 H (80-97) fL MCH 37 H (27-31) pg MCHC 33 (31-36) g/dl RDW 14 (10.5-15) % Plt Count 339 (150-450) 10^3/ul MPV 6.7 L (7.4-10.4) um3 Neut % (Auto) 82.0 (38-83) % Lymph % (Auto) 13.5 L (25-47) % Apache % (Auto) 3.8 (0-7) % Eos % (Auto) 0.1 (0-6) % Baso % (Auto) 0.6 (0-2) % Absolute Neuts (auto) 7.7 (1.5-7.7) 10^3/ul Absolute Lymphs (auto) 1.3 (1.0-4.8) 10^3/ul Absolute Monos (auto) 0.4 (0-0.8) 10^3/ul Absolute Eos (auto) 0 (0-0.6) 10^3/ul Absolute Basos (auto) 0.1 (0-0.2) 10^3/ul Absolute Nucleated RBC 0 10^3/ul Nucleated RBC % 0.1 INR (Anticoag Therapy) 0.82 (0.77-1.02) APTT 29.3 (26.0-36.3) seconds Sodium 138 (133-145) mmol/L Potassium 4.6 (3.5-5.0) mmol/L Chloride 104 (101-111) mmol/L Carbon Dioxide 24 (22-32) mmol/L Anion Gap 10 (2-11) mmol/L BUN 25 H (6-24) mg/dL Creatinine 1.13 H (0.51-0.95) mg/dL Est GFR ( Amer) 59.4 (>60) Est GFR (Non-Af Amer) 46.2 (>60) BUN/Creatinine Ratio 22.1 H (8-20) Glucose 87 (70-100) mg/dL Lactic Acid (0.5-2.0) mmol/L Calcium 9.7 (8.6-10.3) mg/dL Magnesium 2.1 (1.9-2.7) mg/dL Total Bilirubin 0.40 (0.2-1.0) mg/dL AST 38 (13-39) U/L ALT 15 (7-52) U/L Alkaline Phosphatase 79 (34-104) U/L Total Creatine Kinase 407 H (10-223) U/L Troponin I 0.01 (<0.04) ng/mL Total Protein 7.0 (6.4-8.9) g/dL Albumin 4.4 (3.2-5.2) g/dL Globulin 2.6 (2-4) g/dL Albumin/Globulin Ratio 1.7 (1-3) Urine Color Urine Appearance Urine pH (5-9) Ur Specific Charlo (1.010-1.030) Urine Protein (Negative) Urine Ketones (Negative) Urine Blood (Negative) Urine Nitrate (Negative) Urine Bilirubin (Negative) Urine Urobilinogen (Negative) Ur Leukocyte Esterase (Negative) Urine WBC (Auto) (Absent) Urine RBC (Auto) (Absent) Ur Squamous Epith Cells (Absent) Amorphous Crystals (Absent) Urine Bacteria (Absent) Urine Glucose (Negative) 05/18/17 05/18/17 Range/Units 19:46 21:35 WBC (3.5-10.8) 10^3/ul RBC (4.0-5.4) 10^6/ul Hgb (12.0-16.0) g/dl Hct (35-47) % MCV (80-97) fL MCH (27-31) pg MCHC (31-36) g/dl RDW (10.5-15) % Plt Count (150-450) 10^3/ul MPV (7.4-10.4) um3 Neut % (Auto) (38-83) % Lymph % (Auto) (25-47) % Apache % (Auto) (0-7) % Eos % (Auto) (0-6) % Baso % (Auto) (0-2) % Absolute Neuts (auto) (1.5-7.7) 10^3/ul Absolute Lymphs (auto) (1.0-4.8) 10^3/ul Absolute Monos (auto) (0-0.8) 10^3/ul Absolute Eos (auto) (0-0.6) 10^3/ul Absolute Basos (auto) (0-0.2) 10^3/ul Absolute Nucleated RBC 10^3/ul Nucleated RBC % INR (Anticoag Therapy) (0.77-1.02) APTT (26.0-36.3) seconds Sodium (133-145) mmol/L Potassium (3.5-5.0) mmol/L Chloride (101-111) mmol/L Carbon Dioxide (22-32) mmol/L Anion Gap (2-11) mmol/L BUN (6-24) mg/dL Creatinine (0.51-0.95) mg/dL Est GFR ( Amer) (>60) Est GFR (Non-Af Amer) (>60) BUN/Creatinine Ratio (8-20) Glucose (70-100) mg/dL Lactic Acid 1.1 (0.5-2.0) mmol/L Calcium (8.6-10.3) mg/dL Magnesium (1.9-2.7) mg/dL Total Bilirubin (0.2-1.0) mg/dL AST (13-39) U/L ALT (7-52) U/L Alkaline Phosphatase (34-104) U/L Total Creatine Kinase (10-223) U/L Troponin I (<0.04) ng/mL Total Protein (6.4-8.9) g/dL Albumin (3.2-5.2) g/dL Globulin (2-4) g/dL Albumin/Globulin Ratio (1-3) Urine Color Yellow Urine Appearance Cloudy Urine pH 6.0 (5-9) Ur Specific Charlo 1.017 (1.010-1.030) Urine Protein Negative (Negative) Urine Ketones Trace A (Negative) Urine Blood Negative (Negative) Urine Nitrate Negative (Negative) Urine Bilirubin Negative (Negative) Urine Urobilinogen Negative (Negative) Ur Leukocyte Esterase 1+ A (Negative) Urine WBC (Auto) Trace(0-5/hpf) (Absent) Urine RBC (Auto) Trace(0-2/hpf) (Absent) Ur Squamous Epith Cells Present A (Absent) Amorphous Crystals Present A (Absent) Urine Bacteria 1+ A (Absent) Urine Glucose Negative (Negative) ECG, personally reviewed: NSR rate 74, no ischemia CXR, personally reviewed: IMPRESSION: 1. No traumatic injury or acute intrathoracic process evident. 2. Stigmata of chronic obstructive pulmonary disease and previous granulomatous disease. CT brain WO, personally reviewed: IMPRESSION: Involutional change and stigmata of chronic small vessel ischemic disease. No acute intracranial process or traumatic injury evident. XRY R elbow, personally reviewed: IMPRESSION: Negative for joint effusion, fracture, or malalignment. Small dystrophic calcification adjacent to the lateral epicondyles favoring chronic lateral epicondylitis. Mild dorsal soft tissue swelling. XRY R wrist: ordered, pending Impression: 81F presenting with DIAGNOSIS & PLAN Primary UTI : urine CX : IV ciprofloxacin : supportive care generalized weakness : PT evaluation dehydration : IVFs Secondary CPPD : no acute issues Admission Rational: observation for IVFs & ABX DVTp: heparin SQ Code Status: full HCP: children
[2017-05-18] MEDS ORDERED: Ondansetron INJ* 2 MG/ML VIAL IV PRN (23:46)
[2017-05-18] MEDS ORDERED: Melatonin (NF) 3 MG TAB PO PRN (23:46)
[2017-05-18] MEDS ORDERED: hydrALAZINE IV* 20 MG/ML VIAL IV PRN (23:56)
[2017-05-19] MEDS: NS 0.9% 1000 ML* 1,000 ML IV SCH ×2 (01:33→12:13)
[2017-05-19] MEDS: Acetaminophen TAB* 325 MG PO PRN ×3 (02:28→20:06)
[2017-05-19] MEDS: Ciprofloxacin 400MG IVPREMIX(* 400 MG/200 ML BAG IVPB SCH ×2 (02:28→12:13)
[2017-05-19] MEDS: Heparin VIAL(*) 5000 UNITS/ML VIAL (FIVE THOUSAND) SUBCUT SCH ×3 (05:29→20:07)
[2017-05-19] MEDS: Omeprazole CAP* 20 MG PO SCH (05:29)
[2017-05-19 05:52] LABS: EGFR Non-African American 46.7 (>60)
[2017-05-19] MEDS: Docusate CAP* 100 MG PO SCH ×2 (08:25→20:25)
--- NOTE | 2017-05-19 08:31 | RAD ---
INDICATION: Traumatic fracture right wrist COMPARISON: Right hand November 09, 2015 TECHNIQUE: AP, lateral, and oblique views were obtained. FINDINGS: There is osteopenia. There is an old distal radial fracture. There is advanced osteoarthritis about the first and second carpometacarpal articulations with deformity. The findings are unchanged. There is diffuse soft tissue swelling. IMPRESSION: DIFFUSE SOFT TISSUE SWELLING WITH DEFORMITY WITH UNDERLYING ARTHRITIC CHANGE AND OLD POSTTRAUMATIC INJURY TO THE DISTAL RADIUS
--- NOTE | 2017-05-19 10:03 | RAD ---
INDICATION: Screening COMPARISON: June 05, 2016 TECHNIQUE: AP and lateral views were obtained. FINDINGS: The pressure extra osteopenic. There is advanced tricompartmental osteoarthritic change. There are findings of chondrocalcinosis. There is synovial calcifications. There is no joint effusion. IMPRESSION: ADVANCED OSTEOARTHRITIS. NO ACUTE FINDINGS
[2017-05-19] MEDS: traMADol TAB* 50 MG PO PRN (12:13)
--- NOTE | 2017-05-19 15:19 | PN ---
Subjective Date of Service: 05/19/17 Interval History: Patient seen and examined. C/O right knee pain and anterior thigh spasms. Xray ordered. Denies SOB, no chest pain, no dizziness, no n/v. States only complaint is "aches and pains". Objective Active Medications: Acetaminophen (Tylenol Tab*) 650 mg PO Q6H PRN PRN Reason: FEVER/PAIN Last Admin: 05/19/17 08:24 Dose: 650 mg Cephalexin HCl (Keflex Cap*) 500 mg PO Q8HR [facility] Cyclobenzaprine HCl (Flexeril Tab*) 10 mg PO BID PRN PRN Reason: SPASMS Docusate Sodium (Colace Cap*) 200 mg PO BID [facility] Last Admin: 05/19/17 08:25 Dose: Not Given Heparin Sodium (Porcine) (Heparin Vial(*)) 5,000 units SUBCUT Q8HR [facility] Last Admin: 05/19/17 14:06 Dose: 5,000 units Hydralazine HCl (Apresoline Iv*) 10 mg IV Q4H PRN PRN Reason: Systolic >170 Sodium Chloride (Ns 0.9% 1000 Ml*) 1,000 mls @ 0 mls/hr IV WIDE OPEN [facility] PRN Reason: Wide Open Last Admin: 05/18/17 23:43 Dose: 1,000 mls/hr Sodium Chloride (Ns 0.9% 1000 Ml*) 1,000 mls @ 100 mls/hr IV PER RATE [facility] Last Admin: 05/19/17 12:13 Dose: 100 mls/hr Melatonin (Melatonin (Nf)) 3 mg PO BEDTIME PRN; Protocol PRN Reason: Sleep Omeprazole (Prilosec Cap*) 20 mg PO DAILY@0600 [facility] Last Admin: 05/19/17 05:29 Dose: 20 mg Ondansetron HCl (Zofran Inj*) 4 mg IV Q6H PRN PRN Reason: NAUSEA Tramadol HCl (Ultram*) 50 mg PO Q6H PRN PRN Reason: PAIN Last Admin: 05/19/17 12:13 Dose: 50 mg Vital Signs - 8 hr 05/19/17 05/19/17 05/19/17 07:57 08:00 11:09 Temperature 97.6 F 97.8 F Pulse Rate 72 72 Respiratory 18 16 17 Rate Blood Pressure 154/68 152/71 (mmHg) O2 Sat by Pulse 97 93 Oximetry 05/19/17 12:13 Temperature Pulse Rate Respiratory 16 Rate Blood Pressure (mmHg) O2 Sat by Pulse Oximetry Oxygen Devices in Use Now: None Appearance: Alert, NAD, very thin/frail appearing Eyes: No Scleral Icterus, PERRLA Ears/Nose/Mouth/Throat: NL Teeth, Lips, Gums, - - dry oral mucosa Neck: NL Appearance and Movements; NL JVP, Trachea Midline Respiratory: Symmetrical Chest Expansion and Respiratory Effort, Clear to Auscultation Cardiovascular: NL Sounds; No Murmurs; No JVD, RRR, No Edema Abdominal: NL Sounds; No Tenderness; No Distention Extremities: No Edema Skin: - - mottled skin bilat UE with skin tear on right elbow Neurological: Alert and Oriented x 3 Nutrition: Taking PO's Result Diagrams: 05/18/17 19:46 05/19/17 05:16 Diagnostic Imaging: RIGHT KNEE XRAY Patient Name: KMDEVANTE Medical Record#: [id number] Ordering Physician: Ashley Bang NP Acct.#: [id number] : 1935 Age: 81 Sex: F Location: SURGICAL STAY UNIT Exam Date: 05/19/17917 ADM Status: ADM Good Order Information: KNEE RIGHT 1-2 VWS Accession Number: [id number] CPT: 17848 INDICATION: Screening COMPARISON: June 05, 2016 TECHNIQUE: AP and lateral views were obtained. FINDINGS: The pressure extra osteopenic. There is advanced tricompartmental osteoarthritic change. There are findings of chondrocalcinosis. There is synovial calcifications. There is no joint effusion. IMPRESSION: ADVANCED OSTEOARTHRITIS. NO ACUTE FINDINGS <Electronically signed by Dewayne Mcwilliams MD in OV> 05/19/17 1000 Dictated By: Dewayne Mcwilliams MD Dictated Date/Time: 05/19/17 1000 Transcribed Date/Time: 05/19/17 0958 Copy to: HEAD CT Patient Name: DEVANTE BARBOUR Medical Record#: [id number] Ordering Physician: Ramon Nina MD Acct.#: [id number] : 1935 Age: 81 Sex: F Location: EMERGENCY DEPARTMENT Exam Date: 05/18/17 184 ADM Status: REG ER Order Information: CT BRAIN WO Accession Number: [id number] CPT: 48292 Indication: Near syncopal episode. Fall. Comparison: July 03, 2015 CT. Technique: Noncontrast CT vertex of skull through foramen magnum. Report: Moderately severe prominence of the cerebral sulci. Mild prominence of the cerebellar fissures. Negative for eaton matter white matter obscuration, intra or extra-axial hemorrhage, or mass effect. Decreased density in the periventricular and subcortical white matter while non-specific is most likely due to chronic microangiopathy. No suspicious abnormality at the partially visualized orbits. Negative for calvarial or skull base fracture or suspicious focal osseous lesion. Negative for scalp hematoma. IMPRESSION: Involutional change and stigmata of chronic small vessel ischemic disease. No acute intracranial process or traumatic injury evident. <Electronically signed by Adarsh Bourne MD in OV> 05/18/172011 Dictated By: Adarsh Bourne MD Dictated Date/Time: 05/18/172011 Transcribed Date/Time: 05/18/171954 Copy to: RIGHT ELBOW XRAY Patient Name: DEVANTE BARBOUR Medical Record#: [id number] Ordering Physician: Ramon Nina MD Acct.#: [id number] : 1935 Age: 81 Sex: F Location: EMERGENCY DEPARTMENT Exam Date: 05/18/171851 ADM Status: REG ER Order Information: ELBOW RIGHT 3+ VWS Accession Number: [id number] CPT: 89126 INDICATION: RIGHT elbow pain post fall. Good range of motion. COMPARISON: No relevant prior exams available on the [facility] for comparison. TECHNIQUE: AP, lateral, and oblique views RIGHT elbow. REPORT AND IMPRESSION: Negative for joint effusion, fracture, or malalignment. Small dystrophic calcification adjacent to the lateral epicondyles favoring chronic lateral epicondylitis. Mild dorsal soft tissue swelling. <Electronically signed by Adarsh Bourne MD in OV> 05/18/171936 Dictated By: Adarsh Bourne MD Dictated Date/Time: 05/18/171936 Transcribed Date/Time: 05/18/171934 Copy to: CC:Ramon Nina MD; Veronica Baca MD Imaging - [facility] Imaging - [facility] Imaging - [facility] [address] [address] ph [phone] ph ([phone]) ph ([phone]) Assess/Plan/Problems-Billing Assessment: This is an 81 year old female patient s/p mechanical fall. - Patient Problems (1) Fall Comment: - PT eval (2) UTI (urinary tract infection) Comment: - On cipro, pharmacy recommending keflex PO until cultures are available (3) Hx of calcium pyrophosphate deposition disease (CPPD) Code(s): Z87.39 - PERSONAL HISTORY OF DISEASES OF THE MS SYS AND CONN TISS SNOMED Code(s): 071469148 Comment: - Pain control as needed (4) Contusion of elbow, right Code(s): S50.01XA - CONTUSION OF RIGHT ELBOW, INITIAL ENCOUNTER SNOMED Code(s) : 58156197 Comment: - No fracture, xray as above - Local wound care to right elbow (5) Osteoarthritis Code(s): M19.90 - UNSPECIFIED OSTEOARTHRITIS, UNSPECIFIED SITE SNOMED Code(s) : 221221003 Comment: - With right knee pain - Xray as above, no acute process - Add flexeril for spasms (6) DVT prophylaxis Code(s): CKL0049 - SNOMED Code(s): 125902990 Comment: - HSQ (7) Full code status Code(s): Z78.9 - OTHER SPECIFIED HEALTH STATUS SNOMED Code(s): 392282509 Status and Disposition: Remain inpatient, dispo planning to be coordinated with CM.
[2017-05-19] MEDS: Cyclobenzaprine TAB* 10 MG PO PRN (15:21)
[2017-05-19] MEDS: Cephalexin CAP* 500 MG PO SCH (20:06)
[2017-05-20] MEDS: NS 0.9% 1000 ML* 1,000 ML IV SCH ×3 (01:35→22:14)
[2017-05-20] MEDS: Acetaminophen TAB* 325 MG PO PRN (02:57)
[2017-05-20] MEDS: Omeprazole CAP* 20 MG PO SCH (06:12)
[2017-05-20] MEDS: traMADol TAB* 50 MG PO PRN ×3 (06:13→21:34)
[2017-05-20] MEDS: Cephalexin CAP* 500 MG PO SCH ×3 (06:13→21:34)
[2017-05-20] MEDS: Heparin VIAL(*) 5000 UNITS/ML VIAL (FIVE THOUSAND) SUBCUT SCH ×3 (06:14→21:34)
[2017-05-20] MEDS: Cyclobenzaprine TAB* 10 MG PO PRN ×2 (07:52→20:09)
[2017-05-20] MEDS: Docusate CAP* 100 MG PO SCH ×2 (07:53→20:09)
--- NOTE | 2017-05-20 16:12 | PN ---
Subjective Date of Service: 05/20/17 Interval History: Patient seen and examined. OOB to chair. States pain in right knee improved with flexeril. No acute overnight events. Tolerating PO. Denies fever or chills , no chest pain, no SOB. Right elbow sore around skin tear. Objective Active Medications: Acetaminophen (Tylenol Tab*) 650 mg PO Q6H PRN PRN Reason: FEVER/PAIN Last Admin: 05/20/17 02:57 Dose: 650 mg Cephalexin HCl (Keflex Cap*) 500 mg PO Q8HR [facility] Last Admin: 05/20/17 13:26 Dose: 500 mg Cyclobenzaprine HCl (Flexeril Tab*) 10 mg PO BID PRN PRN Reason: SPASMS Last Admin: 05/20/17 07:52 Dose: 10 mg Docusate Sodium (Colace Cap*) 200 mg PO BID [facility] Last Admin: 05/20/17 07:53 Dose: Not Given Heparin Sodium (Porcine) (Heparin Vial(*)) 5,000 units SUBCUT Q8HR [facility] Last Admin: 05/20/17 13:23 Dose: 5,000 units Hydralazine HCl (Apresoline Iv*) 10 mg IV Q4H PRN PRN Reason: Systolic >170 Sodium Chloride (Ns 0.9% 1000 Ml*) 1,000 mls @ 0 mls/hr IV WIDE OPEN [facility] PRN Reason: Wide Open Last Admin: 05/18/17 23:43 Dose: 1,000 mls/hr Sodium Chloride (Ns 0.9% 1000 Ml*) 1,000 mls @ 100 mls/hr IV PER RATE [facility] Last Admin: 05/20/17 11:39 Dose: 100 mls/hr Melatonin (Melatonin (Nf)) 3 mg PO BEDTIME PRN; Protocol PRN Reason: Sleep Omeprazole (Prilosec Cap*) 20 mg PO DAILY@0600 [facility] Last Admin: 05/20/17 06:12 Dose: 20 mg Ondansetron HCl (Zofran Inj*) 4 mg IV Q6H PRN PRN Reason: NAUSEA Tramadol HCl (Ultram*) 50 mg PO Q6H PRN PRN Reason: PAIN Last Admin: 05/20/17 13:26 Dose: 50 mg Vital Signs - 8 hr 05/20/17 05/20/17 05/20/17 09:17 11:10 11:40 Temperature 98.6 F Pulse Rate 72 Respiratory 16 16 16 Rate Blood Pressure 155/65 (mmHg) O2 Sat by Pulse 99 Oximetry 05/20/17 05/20/17 05/20/17 13:26 15:58 16:06 Temperature 98.3 F Pulse Rate 76 Respiratory 16 16 16 Rate Blood Pressure 155/71 (mmHg) O2 Sat by Pulse 100 Oximetry Oxygen Devices in Use Now: None Appearance: Alert, NAD Eyes: PERRLA Ears/Nose/Mouth/Throat: NL Teeth, Lips, Gums, Mucous Membranes Moist Neck: Trachea Midline Respiratory: Symmetrical Chest Expansion and Respiratory Effort, Clear to Auscultation Cardiovascular: NL Sounds; No Murmurs; No JVD, RRR, No Edema Extremities: No Edema, No Clubbing, Cyanosis, - - discoloration of bilateral UE at baseline Neurological: Alert and Oriented x 3 Nutrition: Taking PO's Result Diagrams: 05/18/17 19:46 05/19/17 05:16 Diagnostic Imaging: RIGHT KNEE XRAY Patient Name: DEVANTE BARBOUR Medical Record#: [id number] Ordering Physician: Ashley Bang NP Acct.#: [id number] : 1935 Age: 81 Sex: F Location: SURGICAL STAY UNIT Exam Date: 05/19/17917 ADM Status: ADM Good Order Information: KNEE RIGHT 1-2 VWS Accession Number: [id number] CPT: 49148 INDICATION: Screening COMPARISON: June 05, 2016 TECHNIQUE: AP and lateral views were obtained. FINDINGS: The pressure extra osteopenic. There is advanced tricompartmental osteoarthritic change. There are findings of chondrocalcinosis. There is synovial calcifications. There is no joint effusion. IMPRESSION: ADVANCED OSTEOARTHRITIS. NO ACUTE FINDINGS <Electronically signed by Dewayne Mcwilliams MD in OV> 05/19/17 1000 Dictated By: Dewayne Mcwilliams MD Dictated Date/Time: 05/19/17 1000 Transcribed Date/Time: 03/26/18 0958 Copy to: HEAD CT Patient Name: DEVANTE BARBOUR Medical Record#: [id number] Ordering Physician: Ramon Nina MD Acct.#: [id number] : 1935 Age: 81 Sex: F Location: EMERGENCY DEPARTMENT Exam Date: 05/18/17 1849 ADM Status: REG ER Order Information: CT BRAIN WO Accession Number: [id number] CPT: 64916 Indication: Near syncopal episode. Fall. Comparison: July 03, 2015 CT. Technique: Noncontrast CT vertex of skull through foramen magnum. Report: Moderately severe prominence of the cerebral sulci. Mild prominence of the cerebellar fissures. Negative for eaton matter white matter obscuration, intra or extra-axial hemorrhage, or mass effect. Decreased density in the periventricular and subcortical white matter while non-specific is most likely due to chronic microangiopathy. No suspicious abnormality at the partially visualized orbits. Negative for calvarial or skull base fracture or suspicious focal osseous lesion. Negative for scalp hematoma. IMPRESSION: Involutional change and stigmata of chronic small vessel ischemic disease. No acute intracranial process or traumatic injury evident. <Electronically signed by Adarsh Bourne MD in OV> 05/18/172011 Dictated By: Adarsh Bourne MD Dictated Date/Time: 05/18/172011 Transcribed Date/Time: 05/18/171954 Copy to: RIGHT ELBOW XRAY Patient Name: DEVANTE BARBOUR Medical Record#: [id number] Ordering Physician: Ramon Nina MD Acct.#: [id number] : 1935 Age: 81 Sex: F Location: EMERGENCY DEPARTMENT Exam Date: 05/18/171851 ADM Status: REG ER Order Information: ELBOW RIGHT 3+ VWS Accession Number: [id number] CPT: 78945 INDICATION: RIGHT elbow pain post fall. Good range of motion. COMPARISON: No relevant prior exams available on the [facility] PACS for comparison. TECHNIQUE: AP, lateral, and oblique views RIGHT elbow. REPORT AND IMPRESSION: Negative for joint effusion, fracture, or malalignment. Small dystrophic calcification adjacent to the lateral epicondyles favoring chronic lateral epicondylitis. Mild dorsal soft tissue swelling. <Electronically signed by Adarsh Bourne MD in OV> 05/18/171936 Dictated By: Adarsh Bourne MD Dictated Date/Time: 05/18/171936 Transcribed Date/Time: 05/18/171934 Copy to: CC:Ramon Nina MD; Veronica Baca MD Imaging - [facility] Imaging - [facility] Imaging - [facility] [address] [address] ph ([phone]) ph ([phone]) ph ([phone]) Assess/Plan/Problems-Billing Assessment: This is an 81 year old female patient s/p mechanical fall. - Patient Problems (1) Fall Comment: - PT eval - Plan for [facility] at discharge tomorrow (2) UTI (urinary tract infection) Comment: - Cipro DCd - Continue keflex, cultures are negative to date (3) Hx of calcium pyrophosphate deposition disease (CPPD) Code(s): Z87.39 - PERSONAL HISTORY OF DISEASES OF THE MS SYS AND CONN TISS SNOMED Code(s): 418662965 Comment: - Pain control as needed, at baseline (4) Contusion of elbow, right Code(s): S50.01XA - CONTUSION OF RIGHT ELBOW, INITIAL ENCOUNTER SNOMED Code(s) : 42657416 Comment: - No fracture, xray as above - Local wound care to right elbow (5) Osteoarthritis Code(s): M19.90 - UNSPECIFIED OSTEOARTHRITIS, UNSPECIFIED SITE SNOMED Code(s) : 471564598 Comment: - With right knee pain - Xray as above, no acute process - Continue flexeril BID for spasms (6) DVT prophylaxis Code(s): QNI8873 - SNOMED Code(s): 611159464 Comment: - HSQ (7) Full code status Code(s): Z78.9 - OTHER SPECIFIED HEALTH STATUS SNOMED Code(s): 682299128 Status and Disposition: Remain in obs until tomorrow then DC to [facility] when bed available tomorrow. Counseling and/or Coordination of Care Minutes: coordinated with mark Jc
[2017-05-20] MEDS ORDERED: CMCS: Melatonin (NF) 3 MG TAB PO PRN (23:00)
[2017-05-21] MEDS: Cephalexin CAP* 500 MG PO SCH ×2 (05:10→14:05)
[2017-05-21] MEDS: Heparin VIAL(*) 5000 UNITS/ML VIAL (FIVE THOUSAND) SUBCUT SCH (05:10)
[2017-05-21] MEDS: traMADol TAB* 50 MG PO PRN ×2 (05:10→14:05)
[2017-05-21] MEDS: Omeprazole CAP* 20 MG PO SCH (05:10)
[2017-05-21 05:49] LABS: ABS Basophils 0.1 10^3/ul (0-0.2); ABS Eosinophils 0.3 10^3/ul (0-0.6); ABS Lymphocytes 2.4 10^3/ul (1.0-4.8); ABS Monocytes 0.6 10^3/ul (0-0.8); ABS Neutrophils 3.4 10^3/ul (1.5-7.7); ABS Nucleated RBC 0 10^3/ul; Eosinophil % 3.8 % (0-6); Hematocrit 32 % (35-47); Hemoglobin 10.9 g/dl (12.0-16.0); Lymphocyte % 35.6 % (25-47); Mean Corpuscular HGB Conc 34 g/dl (31-36); Mean Corpuscular Hemoglobin 38 pg (27-31); Mean Corpuscular Volume 111 fL (80-97); Mean Platelet Volume 7.8 um3 (7.4-10.4); Nucleated Red Blood Cells % 0; Platelet Count 271 10^3/ul (150-450); Red Cell Distribution Width 14 % (10.5-15); White Blood Count 6.9 10^3/ul (3.5-10.8)
[2017-05-21] MEDS: Cyclobenzaprine TAB* 10 MG PO PRN (09:23)
[2017-05-21] MEDS: Docusate CAP* 100 MG PO SCH (09:23)
[2017-05-21] MEDS ORDERED: Butalb/Acetamin/Caff TAB* 1 TAB PO PRN (10:07)
[2017-05-21] MEDS ORDERED: predniSONE TAB* 5 MG PO SCH (11:00)
[2017-05-21] MEDS ORDERED: Gabapentin CAP(*) 100 MG PO SCH (11:00)
[2017-05-21] MEDS ORDERED: Ramipril CAP* 10 MG PO SCH (11:00)
[2017-05-21] MEDS ORDERED: Hydroxychloroquine TAB* 200 MG PO SCH (11:00)
[2017-05-21 12:06] VITALS: BP 134/63
--- NOTE | 2017-05-21 15:01 | DS ---
CC: Veronica Baca MD * DISCHARGE SUMMARY: DATE OF ADMISSION: 05/18/17 DATE OF DISCHARGE: 05/21/17 PRIMARY CARE PROVIDER: Veronica Baca MD ATTENDING FOR THIS ADMISSION: Juvenal Olivia MD MY ATTENDING FOR TODAY: Maryjo Richmond DO * (DICTATED BY ANNABELLE STERLING NP) HOSPITAL COURSE: This is a very pleasant 81-year-old female patient who lives at home by herself. She is 81 years old. She has history of hypertension, CPPD disease, migraines, and depression. Reports that she was having some falls at home. She tripped on a rug and landed on her right elbow. She denies any loss of consciousness. She did not strike her head. She did have some pain and generalized weakness afterwards and she was able unable to get above the floor. She was sent to the emergency department for evaluation. She was found to have urinary tract infection, dehydration, and generalized weakness likely secondary to her osteoarthritis and CPPD disease. The patient was gently hydrated and started on antibiotics for her urinary tract infection. Urine culture dated 05/18/17 showed no growth of any particular organisms. The patient was placed empirically on Keflex 500 mg q.8 hours for her urinary tract infection. She was seen by Physical Therapy who determined the patient may benefit from a short stay in rehab. Of significant note, she also had x-ray imaging of her right arm, humerus, elbow, wrist, and right knee secondary to pain. She was shown to have no acute fractures or dislocations. She did have some hypertension and was placed on Apresoline q.6 hours p.r.n. Her regular blood pressure medications were restarted today along with her tramadol 50 mg q.6 hours, ramipril 10 mg daily, prednisone 5 mg daily, omeprazole 20 mg daily, hydroxyquinoline 200 mg daily, gabapentin 100 mg daily. She was started on Flexeril 10 mg 2 times a day as needed. She will be continued on her Keflex for an additional 3 days and also she can continue her butalbital/acetaminophen/ caffeine tablets daily as needed for pain and allopurinol 100 mg daily. LABORATORY DATA: On day of discharge, WBC 6.9; RBC 2.90; hemoglobin 10.9; hematocrit 32; MCV 111; MCH 38; and platelets 271,000. Sodium 138, potassium 3.9, chloride 109, CO2 of 24, anion gap 5, BUN 28, creatinine 1.12, GFR 46.7, glucose 84, lactic acid 1.1, and calcium 8.8. IMAGING: Imaging of the right knee shows degenerative arthritis only and no fractures. PHYSICAL EXAMINATION: Vital Signs: Today, temperature 98.7; respiratory rate 16; heart rate 96; satting at 99% on room air; blood pressure 134/63. HEENT: The patient is atraumatic and normocephalic. PERRLA with nonicteric sclerae. Oral mucosa is dry. Neck: Supple. No JVD noted. No carotid bruits auscultated. Cardiovascular: S1, S2 are present. Rate and rhythm are regular. Lungs: Clear bilaterally to auscultation with no wheezing, rhonchi, or rales. : Deferred. Musculoskeletal: There is no clubbing and no cyanosis. She has generalized edema to the right knee. This is her baseline. She also has a skin tear to the right elbow and some mottling and discoloration of the upper extremities, primarily located on the forearms likely secondary to her long-term prednisone use. Again, this is her baseline. Neurologic: She is grossly intact with no focal deficits. Psychiatric: She is cooperative and appropriate. DISCHARGE DIAGNOSES: 1. Mechanical fall secondary to gait disturbance and deconditioning. 2. Urinary tract infection. 3. History of calcium pyrophosphate deposition disease. 4. Elbow contusion. 5. Osteoarthritis. 6. Chronic pain. DISPOSITION: The patient was discharged to [facility] in stable condition. All questions were answered. resolution manager reached out to the patient's daughter to discuss her discharge planning with her and she is in agreement with the patient being transferred to [facility] today for additional physical therapy and gait training. FOLLOWUP: The patient should follow up with Dr. Baca after she is released from rehab for regular medical followup. ACTIVITY: The patient can have activity as tolerated, physical therapy ad marija. DIET: She should be on a heart healthy diet. The patient may also benefit from orthopaedic evaluation at some point as an outpatient if she continues to have the right knee pain secondary to her degenerative arthritis. Again, the patient is agreeable to this plan. She will be discharged by a wheelchair wellness health coach later this afternoon. ANNABELLE STERLING, PASSENGER BOOKING CLERK [id number]/[facility] #: [id number] [facility] C[facility]ERSergio
[2017-05-22] MEDS ORDERED: Allopurinol TAB* 100 MG PO SCH (09:00)
[2017-05-22] MEDS ORDERED: Cyanocobalamin TAB* 500 MCG PO SCH (09:00)
== END 2017-05-21 14:50 ==
LOC: ED 18:03 → SSU 05-19
PROVIDERS: ADMIT Hospitalist; ATTEND Internal Medicine
DX: N39.0 Urinary tract infection, site not specified (principal); R26.9 Unspecified abnormalities of gait and mobility; E86.0 Dehydration; S50.01XA Contusion of right elbow, initial encounter; W01.0XXA Fall on same level from slipping, tripping and stumbling without subsequent striking against object, initial encounter; Z91.81 History of falling; Y92.009 Unspecified place in unspecified non-institutional (private) residence as the place of occurrence of the external cause; M19.90 Unspecified osteoarthritis, unspecified site; G89.29 Other chronic pain; I10 Essential (primary) hypertension; Z79.899 Other long term (current) drug therapy; Z88.0 Allergy status to penicillin; M11.20 Other chondrocalcinosis, unspecified site; G43.909 Migraine, unspecified, not intractable, without status migrainosus; F32.9 Major depressive disorder, single episode, unspecified; M25.561 Pain in right knee; R94.31 Abnormal electrocardiogram [ECG] [EKG]; Z23 Encounter for immunization
CPT/HCPCS: 36415; 70450; 71045; 80048; 80053; 81003; 81015; 82550; 83605; 83735; 84484; 85025; 85610; 85730; 87086; 90471; 90715; 93005; 96361; 96365; 96366; 96372; 96375; 99283; A9270-GY; G0378; G8978-GP-CL; G8978-GP-CM; G8979-GP-CI; J0360; J0744; J1644; J7512

== ENCOUNTER 2017-06-16 16:19 | Inpatient (IN) | payer MEDICARE ==
[2017-06-16] MEDS ORDERED: traMADol TAB* 50 MG PO PRN (18:29)
[2017-06-16] MEDS ORDERED: Cyclobenzaprine TAB* 10 MG PO PRN (18:42)
--- NOTE | 2017-06-16 20:59 | HP ---
CC: Maryjo Richmond DO; Dr. Baca* MEDICINE HISTORY AND PHYSICAL: DATE OF ADMISSION: 06/16/17 ATTENDING PHYSICIAN: Kirsten Murphy MD* (dictated by German Raya NP) CONSULTING PHYSICIAN: Lashaun Brush MD, Neurology. PRIMARY CARE PROVIDERS: 1. Veronica Baca MD. 2. Maryjo Richmond DO, [facility]. CHIEF COMPLAINT: Progressive neurological decline. HISTORY OF PRESENT ILLNESS: Ms. Grullon is an 81-year-old female who had been previously admitted to [facility] from 05/18/17 through 05/21/17 with concern for falls at home. She most recently fell at that time and landed on her right elbow, had some pain and generalized weakness following the event and was unable to get off the floor. She was sent to the emergency department for evaluation and found to have concern for urinary tract infection, dehydration, and generalized weakness that was considered to be secondary to her osteoarthritis and CPPD disease. There was concern for deconditioning and she was discharged to [facility] for subacute rehab in stable condition. At that time, she was noted to be grossly intact neurologically with no focal deficits. Upon her arrival at [facility], she was able to participate in her therapies with some notable upper extremity weakness, which has been an ongoing concern for the patient given her history of cervical spondylolisthesis. She was noted to have moderate to severe diffuse cervical spondylosis in 2016. Physical Therapy at [facility] also noted that she had some difficulty with bearing weight and mobilizing on the right lower extremity; however, she was able to participate with therapy and getting up with assistance and utilizing machine such as a [id number]. However, it was noted over the next days that followed that she had progressive weakness in these extremities. She was seen by Dr. Richmond on 05/29/17, and at that time she was noted to be lying on her left hip with her knees bent and pulled up towards her chest. At that time, the patient had noted that she has been having a hard time maintaining herself on her back and that her legs were falling to the left. She was able to fully extend the left leg, but was unable to fully extend the right leg. At baseline , the patient states that she usually had to push on the right leg to get it to extend fully, but was not able to do that at that time. At that time, it was unclear if this mild contracture in the leg was new or an extension of an ongoing issue. Physical Therapy continued to work with her on passive stretching on a daily basis as well as encouraging range of motion. Since that time, Ms. Grullon has become more contracted in the right lower extremity. She did have an x- ray of the lumbar spine, which did reveal a T12 compression fracture that was stable as well as degenerative disk disease and retrolisthesis of the lumbar spine L3 and L4. Given her history of the cervical spondylolisthesis with the upper extremity weakness and now with the right lower extremity weakness that is odd on presentation, she was ordered an outpatient MRI of the cervical and lumbar spines. However, the scheduling of this is still ongoing as the MRI department had concern for the patient's pacemaker. It is unclear as to where this pacemaker was reported, but per her family and review of x-rays, there is no pacemaker noted. Ms. Grullon is also referred to Neurosurgery and that consult is also pending. Today, on 06/16/17, Ms. Grullon was participating with Physical Therapy and they did note that previously there was some muscle engagement in the right lower extremity and now more recently. As of today, there is minimal to no muscle engagement of the right lower extremity. Other interventions that have been done for Ms. Grullon include utilizing a leg block to encourage passive stretching of the right lower extremity to help prevent further contractures. This brace, I did see her utilize at the facility and it did appear to help her , keep her leg in a more extended position as well as prevented the knees from flopping to one side. Given her spasticity, she was also started on baclofen as opposed to the p.r.n. cyclobenzaprine that she was previously taking. However, with the baclofen, she was given half a tab 4 times a day, but was noted to be more somnolent upon taking the medication. This has been decreased to half a tab twice a day. She was recently checked and evaluated for a UTI and her urinalysis was unremarkable. She, otherwise, has no acute concern. She is very pleasant. She remains at her neurological baseline mentally, although the right lower extremity deficit is new, somewhat concerning, and the etiology of this is unclear. She has had no recent fevers or indications of infection. She denies any chest pain or trouble breathing. Her speech has been clear. She has been able to make her needs known. There are no other acute concerns that have been identified at this time. PAST MEDICAL HISTORY: Includes: 1. Hypertension. 2. CPPD disease. 3. Migraines. 4. Depression. 5. Inflammatory polyarthropathy. PAST SURGICAL HISTORY: Includes: 1. Tonsillectomy. 2. Left 3rd and 4th PIP arthroplasties x2. 3. Right shoulder reverse arthroplasty. 4. Left total knee arthroplasty. CURRENT MEDICATIONS: 1. Tramadol 50 mg q.8 hours p.r.n., maximum daily dose 150 mg. 2. Prednisone 5 mg daily. 3. Ramipril 10 mg daily. 4. Omeprazole 20 mg daily. 5. Hydroxychloroquine 200 mg daily. 6. Gabapentin 100 mg t.i.d. 7. Escitalopram 5 mg daily. 8. Docusate 200 mg b.i.d. 9. Cyclobenzaprine 10 mg t.i.d. p.r.n. 10. Cyanocobalamin 1000 mcg daily. 11. Fioricet 1 tab daily p.r.n. 12. Allopurinol 100 mg daily. 13. Acetaminophen 650 mg q.6 hours p.r.n. 14. Ferrous sulfate 325 mg daily. 15. Baclofen 5 mg b.i.d. ALLERGIES: Include ASPIRIN and PENICILLIN. FAMILY HISTORY: Noncontributory. SOCIAL HISTORY: Ms. Grullon is . She is currently residing at [facility] at subacute rehab with a plan to visit [facility] in the near future for evaluation of transfer there once her rehab is done. 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 There is no history of smoking. She does drink alcohol on occasion. Prior to her hospitalization and rehab admission, she was living at home alone. Her daughter, Alisa Barragan, is her healthcare proxy. REVIEW OF SYSTEMS: A complete 12-point review of systems was completed. Pertinent positives and negatives as per HPI. PHYSICAL EXAMINATION GENERAL: This is a well-developed elderly female, who is seen sitting up in a wheelchair with her knees flexed with a knee block brace in place. She is a little bit drowsy, but awakens and is able to converse. She is pleasant and interactive. HEENT: Head is atraumatic, normocephalic. Face is symmetrical. Pupils are equal, round and reactive to light. Extraocular movements are intact. Oral mucosa is moist. NECK: Supple. No lymphadenopathy appreciated. LUNGS: Clear to auscultation bilaterally. CARDIAC: Normal S1, S2. Heart sounds with regular rate and rhythm. No murmurs appreciated. There is no left-sided peripheral edema. There is some mild right peripheral edema on the knee and lower leg, ankle and foot. ABDOMEN: Soft, nontender, nondistended with normoactive bowel sounds. MUSCULOSKELETAL: As per HPI. There appear to be some contractures of the lower extremities, more so of the right lower extremity. Ms. Grullon is able to actually move the left extremity as well as the upper extremities. No clubbing or cyanosis noted. NEURO: Speech is clear. She is alert and oriented x3. Sensation is intact, although decreased on the right lower extremity distally, most notably along the right great toe, 2nd and 3rd toes, but increased on the 4th and 5th toes. There is decreased strength through the right lower extremity. SKIN: Warm and dry. She does have some various stages of bruising and ecchymosis to the upper extremities as well as healing skin tears. There is some redness to the right lower extremity. PSYCH: Again, she is alert and oriented x3. She does have some occasional forgetfulness, but is able to express her needs and respond appropriately to questions. LABORATORY DATA AND DIAGNOSTIC STUDIES: Most recently, Ms. Grullon last had labs on 05/21/17, which have been reviewed. They are consistent with previous. She did have a urine study done from 06/12/17, which did show a moderate amount of E. coli and normal john for which she was not treated as she has been complaining of dysuria and there was no evidence or other indication of infection. Lumbar spine x-ray at [facility] as per previously stated. MRIs have been pending. Old medical records were reviewed. ASSESSMENT AND PLAN: This is an 81-year-old female who is being admitted under OBV status as a direct admission for assistance and getting an appropriate neurological evaluation given her progressive decline, especially with her right lower extremity. The etiology of this is unclear and for that, we will pursue and appreciate a neurological evaluation for Ms. Grullon while she is here in the hospital. Additionally, MRI of the lumbar and cervical spines and brain will be pursued in order to help evaluate for neurological pathology. 1. Progressive neurological decline as per above. I have spoken with Neurology and appreciate any input for this patient. We will continue her on every shift neurological checks and continue her on home medications. Again, MRIs will be pursued for brain, cervical, and lumbar spines without contrast. 2. Right lower extremity contracture with swelling and spasticity. For this, I will obtain a Doppler. I suspect this is most likely secondary to the patient 's positioning of the leg, but she has been complaining of more pain to the leg. She was recently started on baclofen on 06/13/17. She was noted to be more somnolent with the start of this medication and it has been pulled back from 4 times a day to twice a day. Other considerations included Zanaflex , which has not been trialed for this patient; however, if she still remains sleepy from the baclofen, we could certainly discontinue this and try a different medication for her. She had previously been on Flexeril with little effect as well as on a small dose of gabapentin, which was also increased. She appears to have tolerated the increase of gabapentin, but does not tolerate the increase or the addition of the baclofen. These medications have all been continued with indications to hold for lethargy and we will continue to monitor her response to these medications. A Doppler has been ordered of the right lower extremity just to ensure that there is not a deep venous thrombosis present. 3. Deconditioning. Continue to work with physical and occupational therapies while here in the hospital with a plan to discharge back to [facility] for her subacute rehab once neurological evaluation is completed. 4. History of hypertension. Blood pressures have been running normotensive and she will continue on her current dose of ramipril. 5. History of inflammatory polyarthropathy. Continue Plaquenil and prednisone. 6. History of calcium pyrophosphate dihydrate disease. Continue allopurinol and prednisone. 7. History of depression. Continue Lexapro. 8. FEN. The patient appears to have appropriate nutritional status. She will be maintained on a heart healthy diet. IV fluids are not indicated at this time. We will follow up on her labs tomorrow to monitor CBC and CMP. 9. Code status. MOLST form indicates CPR and full interventions. 10. Disposition. Admit under OBV status with plan to discharge back to [facility] Subacute Rehab and eventual transfer to assisted living should the patient progress in her therapies in order to safely do so. TIME SPENT: Time spent on this admission was approximately 60 minutes, with more than half the time spent [id number] with the patient obtaining history and physical, performing the physical examination, and reviewing the plan of care. Plan of care was also reviewed with Dr. Richmond and Dr. Murphy, the attending at [facility] and attending physician here at [facility]. They are in agreement with the current plan of care and neurological testing. GERMAN RAYA, [employer] DEVELOPER [id number]/CPS #: [id number] WEN
[2017-06-16] MEDS ORDERED: Cyclobenzaprine TAB* 10 MG PO SCH (21:00)
--- NOTE | 2017-06-16 21:59 | RAD ---
Indication: Neurologic deficit with progressive weakness. Sagittal and axial T1, axial T2, FLAIR, diffusion and susceptibility weighted images of the brain were obtained. Comparison is made with previous exam dated September 30, 2014. Ventricular structures are midline. No midline shift is noted. Central and cortical atrophy is noted. Periventricular signal abnormality consistent with chronic ischemic White matter change is noted. There is no evidence of intracranial mass or hemorrhage. No restriction of diffusion is noted. The FLAIR images demonstrates microvascular change. Diffusion-weighted images demonstrates no restriction of diffusion. Susceptibility weighted images demonstrates no evidence of susceptibility weighted artifact. IMPRESSION: Atrophy. Chronic ischemic White matter change. No intracranial mass or hemorrhage is noted. No acute infarct is noted. No changes noted since September 30, 2014.
[2017-06-16] MEDS: Gabapentin CAP(*) 100 MG PO SCH (23:08)
[2017-06-16] MEDS: Docusate CAP* 100 MG PO SCH (23:08)
[2017-06-16] MEDS: Baclofen TAB* 10 MG PO SCH (23:09)
[2017-06-16] MEDS: Heparin VIAL(*) 5000 UNITS/ML VIAL (FIVE THOUSAND) SUBCUT SCH (23:09)
[2017-06-17] MEDS: Omeprazole CAP* 20 MG PO SCH (05:10)
[2017-06-17] MEDS: Heparin VIAL(*) 5000 UNITS/ML VIAL (FIVE THOUSAND) SUBCUT SCH ×2 (05:10→13:50)
[2017-06-17 06:34] LABS: EGFR Non-African American 66.9 (>60)
[2017-06-17 06:43] LABS: ABS Basophils 0.1 10^3/ul (0-0.2); ABS Eosinophils 0.3 10^3/ul (0-0.6); ABS Lymphocytes 2.2 10^3/ul (1.0-4.8); ABS Monocytes 0.8 10^3/ul (0-0.8); ABS Nucleated RBC 0 10^3/ul; Eosinophil % 3.7 % (0-6); Hematocrit 31 % (35-47); Hemoglobin 10.5 g/dl (12.0-16.0); Lymphocyte % 30.5 % (25-47); Mean Corpuscular HGB Conc 33 g/dl (31-36); Mean Corpuscular Hemoglobin 36 pg (27-31); Mean Corpuscular Volume 109 fL (80-97); Mean Platelet Volume 6.6 um3 (7.4-10.4); Nucleated Red Blood Cells % 0; Platelet Count 399 10^3/ul (150-450); Red Blood Count 2.89 10^6/ul (4.0-5.4); Red Cell Distribution Width 13 % (10.5-15); White Blood Count 7.4 10^3/ul (3.5-10.8)
--- NOTE | 2017-06-17 07:59 | RAD ---
HISTORY: New neurological deficit, progressive weakness COMPARISONS: CT dated July 03, 2015, November 13, 2006 TECHNIQUE: The following sequences were obtained of the cervical spine: Sagittal T1- and T2-weighted images, sagittal STIR images, axial T2 and gradient echo images. FINDINGS: The study is limited by patient motion artifact. BRAIN AND SPINAL CORD: Evaluation of the cord signal is limited by patient motion artifact. The cord is grossly normal. ALIGNMENT: There is grade 2 anterolisthesis of C7 on T1 and T1 on T2. There is grade 1 anterolisthesis of C3 on C4. The appearance is similar to the 2016 examination. There is a mild scoliotic curvature of the spine. VERTEBRAL BODIES: There is multilevel anterolateral marginal osteophyte formation. There are Modic type I reactive endplate changes at C7-T1. JOINTS: There is advanced osteoarthritis of the atlantoaxial articulation, with subchondral cyst formation and pannus formation. There is a small joint effusion.. There is diffuse advanced uncovertebral and facet osteoarthritis. MUSCULATURE: Unremarkable INTERVERTEBRAL DISCS: There is diffuse loss of intervertebral disc height and T2 signal throughout the spine. AXIAL IMAGES: C2-C3: There is severe bilateral neural foraminal narrowing. There is no significant central canal stenosis. C3-C4: There is right greater than left uncovertebral facet hypertrophy. There is severe right and moderate to severe left neural foraminal narrowing. There is mild narrowing of the central canal. C4-C5: There is a broad-based disc osteophyte complex with bilateral uncovertebral and facet hypertrophy. There is severe bilateral neural foraminal narrowing. There is moderate narrowing of the central canal. C5-C6: There is a broad-based disc osteophyte complex with bilateral uncovertebral facet hypertrophy. There is severe bilateral neural foraminal narrowing. There is severe narrowing of the central canal. C6-C7: There is bilateral uncovertebral and facet hypertrophy. There is a broad-based disc osteophyte complex. There is severe bilateral neural foraminal narrowing. There is severe narrowing of the central canal. C7-T1: There is a broad-based disc bulge/rolled disc. There is severe bilateral neural foraminal narrowing. There is severe narrowing of the central canal. T1-T2: There is broad-based disc bulge/rolled disc. There is moderate bilateral neural foraminal narrowing. There is moderate narrowing of the central canal. SOFT TISSUES: The visualized soft tissues of the neck are unremarkable. OTHER: There is been progression of disease compared to the 2007 examination. Accounting for differences in technique, the appearance is similar to the 2016 CT examination. IMPRESSION: 1. LIMITED STUDY. 2. ADVANCED DEGENERATIVE DISC DISEASE AND OSTEOARTHRITIS. 3. THERE IS MULTILEVEL SPONDYLOLISTHESIS DESCRIBED ABOVE. 4. THERE IS SEVERE NARROWING OF THE CENTRAL CANAL AT C5-C6, C6-C7, AND C7-T1, WITH MODERATE NARROWING AT C4-C5 AND T1-T2 AND MILD NARROWING AT C3-C4. 5. THERE IS DIFFUSE SEVERE MULTILEVEL NEURAL FORAMINAL NARROWING, DESCRIBED ABOVE.
--- NOTE | 2017-06-17 08:06 | RAD ---
HISTORY: Neurological deficit, progressive weakness, increasing falls COMPARISONS: September 16, 2012, CT dated May 05, 2015 TECHNIQUE: The following sequences were obtained of the lumbar spine: Sagittal and axial T1- and T2-weighted images, coronal T2-weighted images, and sagittal STIR images. FINDINGS: SPINAL CORD, CONUS, AND CAUDA EQUINA: The visualized spinal cord, conus, and cauda equina are normal in caliber, position, and signal intensity. ALIGNMENT: There is a scoliotic curvature of the spine. VERTEBRAL BODIES: There is multilevel anterolateral marginal osteophyte formation. There are mild Modic type I reactive endplate changes at T12-L1. JOINTS: There is diffuse facet osteoarthritis. MUSCULATURE: There is moderate fatty infiltration. INTERVERTEBRAL DISCS: There is diffuse loss of intervertebral disc height and T2 signal throughout the spine. AXIAL IMAGES: T11-T12: There is no significant neural foraminal narrowing or central canal stenosis. T12-L1: There is low T2 signal extradural lesion in the left lateral recess measuring 1.3 cm in craniocaudal dimension and 0.8 cm in depth. This effaces the left lateral recess. There is severe left neural foraminal narrowing. There is no significant central canal stenosis. L1-L2: There is bilateral facet hypertrophy. There is marginal osteophyte formation at the neural foramina bilaterally. There is moderate left neuroforaminal narrowing. There is mild narrowing of central canal. L2-L3: There is a broad-based disc bulge. There is bilateral facet hypertrophy. There is severe bilateral neural foraminal narrowing. There is moderate to severe narrowing of the central canal. L3-L4: There is a broad-based disc bulge. There is bilateral facet hypertrophy. There is severe bilateral neural foraminal narrowing. There is moderate to severe narrowing of the central canal. L4-L5: There is a broad-based disc bulge. There is bilateral facet hypertrophy. There is severe left and moderate right neural foraminal narrowing. There is severe narrowing of the central canal. L5-S1: There is bilateral facet hypertrophy. There is severe left neural foraminal narrowing. There is mild narrowing of the central canal. SOFT TISSUES: The visualized soft tissues of the abdomen are unremarkable. OTHER: None. IMPRESSION: 1. SCOLIOSIS. 2. ADVANCED DEGENERATIVE DISC DISEASE AND OSTEOARTHRITIS. 3. THERE IS AN EXTRADURAL LESION AT T12-L1, MOST CONSISTENT WITH A CALCIFIED DISC EXTRUSION, THOUGH AN OSSIFIED MENINGIOMA IS WITHIN THE DIFFERENTIAL. 4. THERE IS SEVERE NARROWING OF THE CENTRAL CANAL AT L4-L5 WITH MODERATE TO SEVERE NARROWING AT L2-L3 AND L3-L4, MILD NARROWING AT L1-L2 AND L5-S1. 5. THERE IS MULTILEVEL NEURAL FORAMINAL NARROWING DESCRIBED ABOVE..
--- NOTE | 2017-06-17 08:16 | RAD ---
INDICATION: Right lower leg swelling and pain. COMPARISON: Comparison is made with a prior study from January 20, 2013. TECHNIQUE: Multiple real-time, color flow and Doppler tracings of the right lower extremity were obtained. FINDINGS: The common femoral, femoral, profunda femoral and popliteal veins all demonstrate normal compressibility, augmentation with compression and phasic response with respiration. The posterior tibial veins demonstrate normal compressibility and augmentation with compression. There is occlusive thrombus in one peroneal vein. There is a hypoechoic area in the right popliteal fossa measuring 4.4 x 1.4 x 2.5 cm in size. This is decreased in size from the prior exam and has internal echoes and likely represents a complex cyst. IMPRESSION: 1. OCCLUSIVE DEEP VENOUS THROMBOSIS IN ONE PERONEAL VEIN. 2. FINDINGS MOST CONSISTENT WITH A COMPLEX POPLITEAL CYST.
[2017-06-17] MEDS: Cyanocobalamin TAB* 500 MCG PO SCH (09:15)
[2017-06-17] MEDS: Docusate CAP* 100 MG PO SCH ×3 (09:15→21:52)
[2017-06-17] MEDS: Baclofen TAB* 10 MG PO SCH ×2 (09:15→21:52)
[2017-06-17] MEDS: Allopurinol TAB* 100 MG PO SCH (09:15)
[2017-06-17] MEDS: Citalopram TAB* 10 MG PO SCH (09:15)
[2017-06-17] MEDS: predniSONE TAB* 5 MG PO SCH (09:16)
[2017-06-17] MEDS: Gabapentin CAP(*) 100 MG PO SCH ×3 (09:16→21:52)
[2017-06-17] MEDS: Ferrous Sulfate TAB* 325 MG PO SCH (09:16)
[2017-06-17] MEDS: Hydroxychloroquine TAB* 200 MG PO SCH (09:16)
[2017-06-17] MEDS: Ramipril CAP* 10 MG PO SCH (09:16)
--- NOTE | 2017-06-17 15:11 | PN ---
Subjective Date of Service: 06/17/17 Interval History: Attempted to move from chair to the bed and she was unable to bear weight at all --aides lifted her entire weight completely. She feels okay, has no complaints , but is confused. She has no pain, and does not know why she is in the hospital but knows she is in [facility] She fixates on moving her belongings here from [facility]. Objective Active Medications: Acetaminophen (Tylenol Tab*) 650 mg PO Q4H PRN PRN Reason: FEVER/PAIN Allopurinol (Zyloprim Tab*) 100 mg PO DAILY [facility] Last Admin: 06/17/17 09:15 Dose: 100 mg Baclofen (Lioresal Tab*) 5 mg PO BID [facility] Last Admin: 06/17/17 09:15 Dose: 5 mg Citalopram Hydrobromide (Celexa Tab*) 5 mg PO DAILY [facility] PRN Reason: Protocol Last Admin: 06/17/17 09:15 Dose: 5 mg Cyanocobalamin (Vitamin B12 Tab*) 1,000 mcg PO DAILY [facility] Last Admin: 06/17/17 09:15 Dose: 1,000 mcg Cyclobenzaprine HCl (Flexeril Tab*) 10 mg PO TID PRN PRN Reason: SPASMS Docusate Sodium (Colace Cap*) 200 mg PO BID [facility] Last Admin: 06/17/17 09:20 Dose: Not Given Ferrous Sulfate (Ferrous Sulfate Tab*) 325 mg PO DAILY [facility] Last Admin: 06/17/17 09:16 Dose: 325 mg Gabapentin (Neurontin Cap(*)) 100 mg PO TID [facility] Last Admin: 06/17/17 13:51 Dose: 100 mg Heparin Sodium (Porcine) (Heparin Vial(*)) 5,000 units SUBCUT Q8HR [facility] Last Admin: 06/17/17 13:50 Dose: 5,000 units Hydroxychloroquine Sulfate (Plaquenil Tab*) 200 mg PO DAILY [facility] Last Admin: 06/17/17 09:16 Dose: 200 mg Omeprazole (Prilosec Cap*) 20 mg PO DAILY@0600 [facility] Last Admin: 06/17/17 05:10 Dose: 20 mg Prednisone (Deltasone Tab*) 5 mg PO DAILY [facility] Last Admin: 06/17/17 09:16 Dose: 5 mg Ramipril (Altace Cap*) 10 mg PO DAILY [facility] Last Admin: 06/17/17 09:16 Dose: 10 mg Tramadol HCl (Ultram*) 50 mg PO Q8H PRN PRN Reason: PAIN Vital Signs - 8 hr 06/17/17 06/17/17 06/17/17 08:00 08:02 09:16 Temperature 98.7 F Pulse Rate 88 Respiratory 18 16 16 Rate Blood Pressure 143/69 (mmHg) O2 Sat by Pulse 97 Oximetry 06/17/17 06/17/17 11:28 13:51 Temperature 97.6 F Pulse Rate 91 Respiratory 16 16 Rate Blood Pressure 118/56 (mmHg) O2 Sat by Pulse 97 Oximetry Oxygen Devices in Use Now: None Appearance: alert, pleasant, no distress Eyes: No Scleral Icterus, PERRLA Ears/Nose/Mouth/Throat: NL Teeth, Lips, Gums Neck: NL Appearance and Movements; NL JVP Respiratory: Symmetrical Chest Expansion and Respiratory Effort, Clear to Auscultation Cardiovascular: NL Sounds; No Murmurs; No JVD, RRR Abdominal: NL Sounds; No Tenderness; No Distention Lymphatic: No Cervical Adenopathy Extremities: No Edema, - - marked ulnar deformities both hands Neurological: - - b/l LEs 1/5 strength, gross sensation is in tact. left upper extremity is 3/5, right is 4/5 Result Diagrams: 06/17/17 05:30 06/17/17 05:30 Microbiology and Other Data: Microbiology 06/17/17 08:22 Nasal Screen MRSA (PCR)(KARLIE) - Final Nasal Mrsa Not Detected Assess/Plan/Problems-Billing Assessment: 81 yo female with history of CPPD, COPD, HTN who was recently admitted for falls and was transferred to [facility] for [facility]hab and was noted to have worsening b/l LE weakness - Patient Problems (1) Spinal stenosis Current Visit: Yes Status: Acute Code(s): M48.00 - SPINAL STENOSIS, SITE UNSPECIFIED SNOMED Code(s): 85381242 Comment: this has led to near paraplegia of her lower extremities appreciate neurology and neurosurgery input regarding treatment options i have discussed these findings with her daughter mariana (2) Peroneal DVT (deep venous thrombosis) Current Visit: Yes Status: Acute Code(s): I82.499 - ACUTE EMBOLISM AND THROMBOSIS OF DEEP VEIN OF UNSP LOW EXTRM SNOMED Code(s): 121249356 Comment: favor anticoagulating despite its location since she does not have any contraindication to anticoagulation will discuss this with her daughter as well
--- NOTE | 2017-06-17 16:33 | CONS ---
NEUROLOGY CONSULTATION: DATE OF CONSULT: 06/17/17 REQUESTING PROVIDER: Bailee Nobles NP REASON FOR CONSULT: Progressive spasticity and weakness. HISTORY OF PRESENT ILLNESS: Reba Grullon is an 81-year-old woman with a history of cervical spondylosis of a [id number] nature, who had been admitted at the end of April to [facility] with urinary tract infections and falls. She was apparently living at home before that. She was admitted to [facility] for subacute rehab and over the past couple of weeks, has apparently had progressive decline in her strength and ability to participate in therapy. According to Bailee Nobles's history and discussion with me yesterday, the patient had some upper extremity weakness related to her cervical spine disease, but had been able to get up with assistance. However, over the ensuing days, she has developed progressive weakness in her lower extremities and apparently has been developing some contracture of her right lower extremity. Ms. Grullon does say that she has in the past had to push on her right knee in order to get it to extend fully, but she is unable to state how long this has been a problem. For further evaluation, outpatient MRI scans of the cervical and lumbar spine were ordered, but given her progressive decline , it was decided to bring her into the hospital for more expeditious evaluation. Today, Ms. Grullon is unable to contribute significantly to the history. She herself feels that she has been ambulating more recently and thinks that she used to use a walker, but has been able to walk unassisted recently. When asked how long she has been at [facility], she says she thinks it has been a month or two. She is not really able to state why she was brought into the hospital yesterday. She denies any pain in her neck or her back. She denies any difficulties with breathing, cardiac symptoms, or new GI symptoms. She states that she does think she has some chronic difficulties with her memory, but she has a difficult time stating how long that has been the case. PAST MEDICAL HISTORY: 1. Hypertension. 2. Calcium pyrophosphate dihydrate disease. 3. Migraines. 4. Depression. 5. Inflammatory polyarthropathy. 6. Cervical spondylosis. 7. History of tonsillectomy. 8. Left third and fourth PIP arthroplasties. 9. Right shoulder reverse arthroplasty. 10. Left knee total knee arthroplasty. ADMISSION MEDICATIONS: 1. Tramadol 50 mg q.8 p.r.n. 2. Prednisone 5 mg daily. 3. Ramipril 10 mg daily. 4. Omeprazole 20 mg daily. 5. Hydroxychloroquine 200 mg daily. 6. Gabapentin 100 mg 3 times daily. 7. Escitalopram 5 mg daily. 8. Docusate 200 mg b.i.d. 9. Cyclobenzaprine 10 mg t.i.d. p.r.n. 10. Cyanocobalamin 100 mcg daily. 11. Fioricet 1 tablet daily as needed. 12. Allopurinol 100 mg daily. 13. Acetaminophen 650 mg q.6 p.r.n. 14. Ferrous sulfate 325 mg daily. 15. Baclofen 5 mg b.i.d., which had been started on 06/13/17 secondary to her spasticity, this apparently had caused significant sleepiness at a more frequent schedule. ALLERGIES: ASPIRIN and PENICILLIN. FAMILY HISTORY: Noncontributory at this time. SOCIAL HISTORY: She is reportedly . She is a nonsmoker. According to the chart, she was living at home alone prior to her hospitalization and subsequent admission to subacute rehab. REVIEW OF SYSTEMS: As per the HPI, otherwise negative. PHYSICAL EXAM: Vital Signs: Temperature 97.6, blood pressure 118/56, heart rate 91, oxygen saturation 97% on room air. On general examination, she is an elderly woman, in no acute distress, sitting in the chair beside her bed. Heart is in a regular rate and rhythm with no murmurs, rubs, or gallops. Lungs are clear to auscultation. She had some bandages over the left lower extremity presumably related to some skin tears. She has diffuse ecchymoses, which are scattered over her upper extremities. On neurologic exam, her speech is clear without dysarthria. She was oriented to herself in her location and stated the year was 17 or 18 and the month was April. Again, she seems to have some difficulty with her recall of recent events of her medical history. She was able to tell me that she has 2 children , one of whom lives in [place] and one who works in the [place] area. On cranial nerve exam, her pupils were equal, round, and reactive from 3 to 2 mm. Versions are full without nystagmus. The castelan are full to confrontation. Facial sensation and musculature is full and symmetric. Hearing is intact to finger rub bilaterally though a bit decreased on the right. The palate elevates symmetrically. The tongue is midline. On motor examination, she has diminished bulk throughout her upper extremities, but this is worse in the left upper extremity, both proximally and distally. She has wasting of her intrinsic hand muscles bilaterally. She has weakness of the left deltoid and very weak transportation lead, left greater than right. She has flexion contractures of the fourth and fifth digits bilaterally. Wrist flexion is approximately a grade 4 whereas wrist extension is about a 5 minus. In the lower extremities, she is not able to lift the left leg off the chair at all. She has about a grade 3 strength in the right hip flexor. She is not able to lock either knee antigravity, but worse on the right. With encouragement, she is able to give some good resistance with knee flexion, but requires repeated encouragement to do so. She has bilateral footdrop. Tone is increased in her lower extremities and paratonic in the upper extremities. Reflexes are 2 to 3+ in her left biceps and brachioradialis, 2+ right biceps and brachioradialis, 2+ at the knees, not elicited at the ankles, though she does have some contracture at the ankles bilaterally limiting range of motion there. Her toes are mute. Sensory exam is notable for severely diminished vibration sense to the ankles and severely diminished proprioceptive ability in the right great toe. She is able to sense the toe moving in the left great toe. Proprioception is intact in the right ankle. I did not attempt to ambulate her. DIAGNOSTIC STUDIES/LAB DATA: Reviewed includes a CBC with white count of 7.4, hemoglobin 10.5, hematocrit 31, platelet count of 399. Chemistry panel shows sodium of 137, KLY-rm-xnulbjqnet ratio of 29.3, alkaline phosphatase of 127. A total protein of 6 and otherwise was unremarkable. I reviewed her brain MRI, which shows diffuse atrophy and some evidence of small vessel disease, but otherwise nothing acute. I also reviewed her cervical and lumbar spine MRIs, which showed diffuse degenerative changes and severe stenosis in the cervical spine at multiple levels standing C5-6, C6-7, and C7-T1 with moderate degree of narrowing at C4-5 and T1-T2. There is also diffuse severe multilevel neural foraminal narrowing. Her lumbar spine MRI shows scoliosis and again advanced degenerative disk disease as well as osteoarthritis, severe central canal narrowing at L4-5 with moderate-to- severe narrowing at 2-3 and 3-4. IMPRESSION AND PLAN: Reba Grullon is an 81-year-old woman who was admitted from [facility] with apparent subacute onset of lower extremity weakness, sensory changes as well spasticity. She has severe cervical spine disease and overall her exam is concerning for an upper motor neuron process. Though according to Dr. Murphy, it does not seem that there is any more acute process going on here , I am hard-pressed to think that her cervical spine disease is not contributing to her symptoms here. As such, I have asked Dr. Barrera to take a look at the films and see the patient to get his opinion on whether there is anything to be offered. If I can be further assistance to the patient during her hospitalization, please do not hesitate to let me know. [id number]/[facility] #: [id number] WEN
--- NOTE | 2017-06-17 17:17 | CONSULT ---
Consult Consult: Neurosurgery Consult Date of Admission: 06/16/17 Date of Consult: 06/17/17 Reason for Consult: Lower extremity weakness Referring Provider: Dr. Bill HPI: This is an 81 year old female with past medical history significant for HTN , CPPD, inflammatory arthritis who presented to the [facility] ED with complaint of lower extremity weakness and inability to use her legs. History is obtained from the patient and previous medical records. She states that she has had weakness for several weeks. She is unable to describe a timeline of events. Previous records report that she was admitted to [facility] 05/18/17-05/21/17 for recent falls and weakness. She was treated for dehydration and was discharged to [facility] rehab. Throughout rehab, she continued to develop progressive weakness and was unable to ambulate. Weakness became so significant that she was unable to move lower extremities. She was then brought to [facility] ED for evaluation and was admitted for further neurological work up. MRI of the cervical and lumbar spine were obtained showing severe spondylosis, stenosis and anterolisthesis. Currently, she denies neck pain, upper extremity pain and numbness. She does report difficulty grasping objects and weak electrical drafter strength. She denies back pain , pain and numbness in the lower extremities. She complains that her legs are not working right and that she is unable to straighten the RLE without effort and pain. She has not been able to ambulate. She denies headache, nausea, chest pain, difficulty breathing, cough, shortness of breath, abdominal pain, constipation, diarrhea, blood in stool or urine, urinary incontinence although does wear an incontinence brief, dizziness, vision changes, changes in speech, and difficulty eating and drinking. Past Medical History: 1. HTN 2. CPPD disease 3. Inflammatory polyarthropathy 4. Depression 5. Migraine 6. Cervical spondylosis Past Surgical History: 1. Tonsillectomy 2. PIP Arthroplasty x2 3. Right shoulder reverse arthroplasty 4. Left total knee arthroplasty Home Medications: 1. Butalb/Acetamin/Caff TAB* [Fioricet TAB*] 1 tab PO DAILY PRN 08/12/12 [ History Confirmed 06/16/17] 2. Escitalopram (NF) [Lexapro 5 mg (NF)] 5 mg PO DAILY 01/03/16 [History Confirmed 06/16/17] 3. Allopurinol TAB* [Zyloprim 100 MG TAB*] 100 mg PO DAILY 05/18/17 [History Confirmed 06/16/17] 4. Cyanocobalamin TAB* [Vitamin B12 TAB*] 1,000 mcg PO DAILY 05/18/17 [History Confirmed 06/16/17] 5. Gabapentin CAP(*) [Neurontin 100 mg CAP(*)] 100 mg PO TID 05/18/17 [History Confirmed 06/16/17] 6. Hydroxychloroquine TAB* [Plaquenil TAB*] 200 mg PO DAILY 05/18/17 [History Confirmed 06/16/17] 7. Ramipril CAP* [Altace CAP*] 10 mg PO DAILY 05/18/17 [History Confirmed ] 8. predniSONE TAB* [Deltasone TAB*] 5 mg PO DAILY 05/18/17 [History Confirmed ] 9. Acetaminophen TAB* [Tylenol TAB*] 650 mg PO Q6H PRN tab 05/21/17 [Rx Confirmed 06/16/17] 10. Docusate CAP* [Colace Cap*] 200 mg PO BID cap 05/21/17 [Rx Confirmed ] 11. Omeprazole CAP* [Prilosec CAP* 20 MG] 20 mg PO DAILY@0600 05/21/17 [ Rx Confirmed 06/16/17] 12. traMADol TAB* [Ultram*] 50 mg PO Q8H PRN tab MDD 150mg 05/21/17 [Rx Confirmed 06/16/17] 13. Baclofen TAB* [Lioresal TAB*] 5 mg PO BID 06/16/17 [History Confirmed ] 14. Cyclobenzaprine TAB* [Flexeril 10 MG TAB*] 10 mg PO TID PRN 06/16/17 [ History Confirmed 06/16/17] 15. Ferrous Sulfate TAB* 325 mg PO DAILY 06/16/17 [History Confirmed 06/16/17] Allergies: 1. Aspirin 2. Penicillins Social History: Prior to last admission, she was independent and living at home alone. After last admission, she has been at [facility] for rehab. She is a nonsmoker and does not consume alcohol. ROS: Full ROS completed and all pertinent findings stated in HPI. All others negative. Physical Exam: General: Alert and oriented to person and place. Disoriented to date, states April rather than May. HEENT: Head is normocephalic and atraumatic. EOMI, PERRLA, sclerae anicteric. Gross hearing intact. Moist mucus membranes. Neck: Neck is supple and symmetric. Cervical spine is nontender to palpation. CV: Radial pulses 2+ and equal. Pedal pulses difficult to palpate. Bilateral pedal edema. Lungs: Lungs are clear and breathing is nonlabored. Abdomen: Abdomen is soft and nontender. Normoactive bowel sounds. Non distended. Neuro: Speech is clear. The patient is oriented to self and [facility]. Answers questions appropriately although with minimal detail. Sensation intact in upper extremities bilaterally with exception of left index finger. Strength intact in upper extremities with exception of poor electrical drafter strength. Strength lower extremities: dorsiflexion 1+ bilaterally, plantarflexion 1+ bilaterally, hip flexors 1+ bilaterally, quadriceps 1+ bilaterally. She is unable to lift her legs off of the bed and is unsure without looking if she is moving them. Achilles reflex absent bilaterally. Hoffmans negative. Extremities: Muscle atrophy in upper extremities. Right knee swelling compared to left, non-erythematous but mildly warm. Ecchymosis of bilateral upper extremities and hands. Bilateral pedal edema. Imagin. MRI of the cervical spine on 06/16/17 shows multilevel degenerative disc disease and severe stenosis with anterolisthesis. 2. MRI of the lumbar spine on 06/16/17 shows multilevel degenerative disc disease and severe stenosis, scoliosis. Assessment and Plan: This is an 81 year old female with past medical history significant for cervical spondylosis and CPPD who presented to the [facility] ED with lower extremity weakness. MRI of the cervical and lumbar spine shows advanced degenerative changes and stenosis. Significant weakness is appreciated on physical exam. Given the patient's age, medical conditions and current health status, it is unlikely she would benefit from an extensive surgical intervention. This case was discussed and plan formulated with Dr. Barrera. Continuation of physical therapy and rehab services is recommended. I have discussed the plan and recommendations with the patient, her daughter Alisa and Dr. Bill.
[2017-06-17] MEDS: Apixaban* 2.5 MG TAB PO SCH (23:02)
[2017-06-18] MEDS: Omeprazole CAP* 20 MG PO SCH (05:28)
[2017-06-18] MEDS: Apixaban* 2.5 MG TAB PO SCH ×2 (09:01→21:01)
[2017-06-18] MEDS: Allopurinol TAB* 100 MG PO SCH (09:01)
[2017-06-18] MEDS: Baclofen TAB* 10 MG PO SCH ×2 (09:01→21:01)
[2017-06-18] MEDS: Ferrous Sulfate TAB* 325 MG PO SCH (09:02)
[2017-06-18] MEDS: Hydroxychloroquine TAB* 200 MG PO SCH (09:02)
[2017-06-18] MEDS: Citalopram TAB* 10 MG PO SCH (09:02)
[2017-06-18] MEDS: Cyanocobalamin TAB* 500 MCG PO SCH (09:02)
[2017-06-18] MEDS: Ramipril CAP* 10 MG PO SCH (09:02)
[2017-06-18] MEDS: Gabapentin CAP(*) 100 MG PO SCH ×3 (09:02→21:01)
[2017-06-18] MEDS: predniSONE TAB* 5 MG PO SCH (09:02)
[2017-06-18] MEDS: Docusate CAP* 100 MG PO SCH ×2 (09:03→21:01)
[2017-06-18] MEDS: Acetaminophen TAB* 325 MG PO PRN (11:13)
--- NOTE | 2017-06-18 17:23 | PN ---
Subjective Date of Service: 06/18/17 Interval History: No overnight events. Feels okay today, cannot remember why she is in the hospital. No complaints, she has no pain, does admit that her legs are weaker than usual when I question her further. Has a good appetite, no neck or back pain, no nausea or chest pain. Objective Active Medications: Acetaminophen (Tylenol Tab*) 650 mg PO Q4H PRN PRN Reason: FEVER/PAIN Last Admin: 06/18/17 11:13 Dose: 650 mg Allopurinol (Zyloprim Tab*) 100 mg PO DAILY [facility] Last Admin: 06/18/17 09:01 Dose: 100 mg Apixaban (Eliquis) 2.5 mg PO BID [facility] Last Admin: 06/18/17 09:01 Dose: 2.5 mg Baclofen (Lioresal Tab*) 5 mg PO BID [facility] Last Admin: 06/18/17 09:01 Dose: 5 mg Citalopram Hydrobromide (Celexa Tab*) 5 mg PO DAILY [facility] PRN Reason: Protocol Last Admin: 06/18/17 09:02 Dose: 5 mg Cyanocobalamin (Vitamin B12 Tab*) 1,000 mcg PO DAILY [facility] Last Admin: 06/18/17 09:02 Dose: 1,000 mcg Cyclobenzaprine HCl (Flexeril Tab*) 10 mg PO TID PRN PRN Reason: SPASMS Docusate Sodium (Colace Cap*) 200 mg PO BID [facility] Last Admin: 06/18/17 09:03 Dose: Not Given Ferrous Sulfate (Ferrous Sulfate Tab*) 325 mg PO DAILY [facility] Last Admin: 06/18/17 09:02 Dose: 325 mg Gabapentin (Neurontin Cap(*)) 100 mg PO TID [facility] Last Admin: 06/18/17 14:35 Dose: 100 mg Hydroxychloroquine Sulfate (Plaquenil Tab*) 200 mg PO DAILY [facility] Last Admin: 06/18/17 09:02 Dose: 200 mg Omeprazole (Prilosec Cap*) 20 mg PO DAILY@0600 [facility] Last Admin: 06/18/17 05:28 Dose: 20 mg Prednisone (Deltasone Tab*) 5 mg PO DAILY [facility] Last Admin: 06/18/17 09:02 Dose: 5 mg Ramipril (Altace Cap*) 10 mg PO DAILY [facility] Last Admin: 06/18/17 09:02 Dose: 10 mg Tramadol HCl (Ultram*) 50 mg PO Q8H PRN PRN Reason: PAIN Vital Signs - 8 hr 06/18/17 06/18/17 06/18/17 11:50 13:52 14:35 Temperature 98.1 F 98.7 F Pulse Rate 86 92 Respiratory 20 20 20 Rate Blood Pressure 121/62 134/65 (mmHg) O2 Sat by Pulse 97 96 Oximetry 06/18/17 15:29 Temperature 98.6 F Pulse Rate 89 Respiratory 16 Rate Blood Pressure 110/52 (mmHg) O2 Sat by Pulse 94 Oximetry Oxygen Devices in Use Now: None Appearance: alert, well appearing sitting up in bed eating lunch Eyes: No Scleral Icterus Ears/Nose/Mouth/Throat: NL Teeth, Lips, Gums Neck: NL Appearance and Movements; NL JVP Respiratory: Symmetrical Chest Expansion and Respiratory Effort, Clear to Auscultation Cardiovascular: NL Sounds; No Murmurs; No JVD, RRR Abdominal: NL Sounds; No Tenderness; No Distention Lymphatic: No Cervical Adenopathy Extremities: No Edema, - - severe ulnar deformities Skin: No Rash or Ulcers Neurological: - - oriented to person and place. right leg 0/5, left leg 1/5, right hand digital media planner 2/5, left 3/5 Result Diagrams: 06/17/17 05:30 06/17/17 05:30 Microbiology and Other Data: Microbiology 06/17/17 08:22 Nasal Screen MRSA (PCR)(KARLIE) - Final Nasal Mrsa Not Detected Assess/Plan/Problems-Billing Assessment: 81 yo female with history of CPPD, COPD, HTN who was recently admitted for falls and was transferred to [facility] for [facility] and was noted to have worsening b/l LE weakness - Patient Problems (1) Spinal stenosis Current Visit: Yes Status: Acute Code(s): M48.00 - SPINAL STENOSIS, SITE UNSPECIFIED SNOMED Code(s): 11476392 Comment: this has led to near paraplegia of her lower extremities i have discussed the mri findings with her daughter mariana neurology and neurosurgery consulted; surgery will not be offered continue pt (2) Peroneal DVT (deep venous thrombosis) Current Visit: Yes Status: Acute Code(s): I82.499 - ACUTE EMBOLISM AND THROMBOSIS OF DEEP VEIN OF UNSP LOW EXTRM SNOMED Code(s): 962566493 Comment: favor anticoagulating despite its location since she does not have any contraindication to anticoagulation will discuss this with her daughter as well (3) Hx of calcium pyrophosphate deposition disease (CPPD) Current Visit: No Status: Acute Code(s): Z87.39 - PERSONAL HISTORY OF DISEASES OF THE MS SYS AND CONN TISS SNOMED Code(s): 422941921 Comment: may be contributing to the spinal stenosis she has no pain to control
--- NOTE | 2017-06-18 17:28 | PN ---
Hospitalist Progress Note Date of Service: 06/18/17 attempted to reach her daughter Alisa, but no answer at her phone today
[2017-06-19] MEDS: Omeprazole CAP* 20 MG PO SCH (05:09)
[2017-06-19] MEDS: Acetaminophen TAB* 325 MG PO PRN (07:26)
[2017-06-19] MEDS: Allopurinol TAB* 100 MG PO SCH (08:54)
[2017-06-19] MEDS: Citalopram TAB* 10 MG PO SCH (08:54)
[2017-06-19] MEDS: Apixaban* 2.5 MG TAB PO SCH (08:54)
[2017-06-19] MEDS: Baclofen TAB* 10 MG PO SCH (08:54)
[2017-06-19] MEDS: Ramipril CAP* 10 MG PO SCH (08:55)
[2017-06-19] MEDS: Ferrous Sulfate TAB* 325 MG PO SCH (08:55)
[2017-06-19] MEDS: Gabapentin CAP(*) 100 MG PO SCH ×2 (08:55→14:16)
[2017-06-19] MEDS: Hydroxychloroquine TAB* 200 MG PO SCH (08:55)
[2017-06-19] MEDS: predniSONE TAB* 5 MG PO SCH (08:55)
[2017-06-19] MEDS: Docusate CAP* 100 MG PO SCH (08:55)
[2017-06-19] MEDS: Cyanocobalamin TAB* 500 MCG PO SCH (08:55)
--- NOTE | 2017-06-19 16:22 | PN ---
Progress Note - Progress Note Date of Service: 06/19/17 Note: Care update: I have discussed this case again with Dr. Barrera regarding flexion /extension and treatment with cervical collar. This treatment is unlikely to change the course of illness.
[2017-06-19 16:55] VITALS: BP 132/70
--- NOTE | 2017-06-19 22:29 | DS ---
DISCHARGE SUMMARY: DATE OF ADMISSION: 06/16/17 DATE OF DISCHARGE: 06/19/17 PRINCIPAL DISCHARGE DIAGNOSES: 1. Severe lumbar spine stenosis (L4-L5 with [id number]-[id number] narrowing at L2- 3, L3-4 and mild narrowing at L1-L2 and L5-S1). 2. Severe narrowing of the central canal at C5-6, C6-7 and C7-T1 with moderate narrowing at C4-5 and T1-T2 and mild narrowing at C3-C4. 3. Deep venous thrombosis [id number]. SECONDARY DISCHARGE DIAGNOSES: 1. Calcium pyrophosphate deposition disease. 2. Dementia. 3. Hypertension. 4. Migraines. 5. Depression. PHYSICAL EXAMINATION AT THE TIME OF DISCHARGE: Temperature 97.3, heart rate 86 , respiratory rate 16, pulse ox 97% on room air, blood pressure 128/64. General : Alert, pleasant female, in no distress. She is oriented to person and to place, but has very poor memory of the events of the past days and even weak. She does not recall that she was ever at [facility] and does not recall any of her prior conversations about the findings of her MRI. HEENT: Pupils are equal, round, and reactive to light. Mucosa is moist with no pharyngeal exudates or erythema. Neck: No JVP. No cervical adenopathy. No spinous process tenderness. No nuchal rigidity. Chest: Regular rate and rhythm. No murmurs. PMI nondisplaced. Lungs: Clear bilaterally. Abdomen: Soft, nontender, nondistended. No guarding, no rebound. Neurologic: Mental status is as above. Her manager functional strength in her left hand is 0/5 and in her right hand is 2/5. Her shoulder strength is 4/5 bilaterally. Regarding her lower extremities, her hip strength is 4/5 bilaterally; however, her quadriceps strength is 0/5 on the right and 1/5 on the left and her ankle dorsiflexion is 1 /5 bilaterally. Sensation to light touch is intact bilaterally. She has downgoing plantar reflexes and her deep tendon reflexes are 1+ bilaterally. DISCHARGE MEDICATIONS: 1. Fioricet 1 tab daily p.r.n. migraine. 2. Lexapro 5 mg daily. 3. Ramipril 10 mg daily. 4. Gabapentin 100 mg t.i.d. 5. Prednisone 5 mg daily. 6. Plaquenil 200 mg daily. 7. Allopurinol 100 mg daily. 8. Vitamin B12 1000 mcg daily. 9. Tylenol 650 mg q.6 p.r.n. pain. 10. Docusate 200 mg b.i.d. 11. Omeprazole 20 mg daily. 12. Tramadol 50 mg q.8 p.r.n. pain. 13. Ferrous sulfate 325 mg daily. 14. Baclofen 5 mg b.i.d. 15. Flexeril 10 mg t.i.d. p.r.n. spasm. 16. Eliquis 2.5 mg b.i.d. HOSPITAL COURSE BY PROBLEM: 1. Severe spinal stenosis. Ms. Grullon was transferred from [facility] for worsening lower extremity weakness. She had been rehabbing at [facility] after falls at home. It was noted on physical therapy that she had decreased muscle activation over the past several days. When she got to [facility], she was evaluated by Neurology, who recommended MRIs of her C-spine and L-spine. These were performed and showed multilevel disease with severe stenosis in the C- spine and L-spine with central canal stenosis at multiple levels. This was thought to be the explanation of her ongoing lower extremity weakness. Based on the MRI findings, Neurosurgery was asked to evaluate the patient. They agreed that the spinal stenosis was the etiology of her progressive neurologic decline; however, they did not recommend a surgical intervention given her age, her comorbidities, and the high risk nature of the procedure. I have discussed this with Ms. Grullon and her daughter, Alisa, at length and Alisa, who is the healthcare proxy, agrees that Ms. Grullon would not want an invasive and drastic procedure such as neurosurgery and as such, we will continue with conservative measures. Unfortunately, no other conservative measures were offered or suggested by Neurosurgery except continuing physical therapy. I explained to her daughter that unfortunately it is unlikely that her strength will be able to be regained without a surgical intervention, but that physical therapy could be continued to continue stretching and to prevent contractures and further deconditioning. She is agreeable to this and understands that her mother is unlikely to walk again. 2. DVT. Due to lower extremity swelling, Dopplers were obtained and peroneal DVT was found in her right peroneal vein. While [id number] DVTs are controversial regarding official recommendations for anticoagulation, Ms. Grullon has no contraindication to anticoagulation and after discussing this finding with her daughter, she wished very strongly to continue with anticoagulation in order to avoid the potential for a PE, so she was started on Eliquis. This is low dose Eliquis based on her age and her weight at 2.5 b.i.d. I informed her daughter of the risks of bleeding on therapeutic anticoagulation. 3. Calcium pyrophosphate deposition disease. It is possible this was contributing to her spinal stenosis. She was continued on daily prednisone and Plaquenil. 4. Dementia. Based on the history from her daughter, it sounds to me like her dementia has been progressing over the past several months. She is very forgetful and disoriented and after discussing her poor prognosis with her daughter, Alisa Alisa agrees that the focus at this point should be on quality of life for Ms. Grullon. 5. Disposition. Ms. Grullon is discharged to [facility] for followup with Dr. Richmond and Bailee Nobles. Please feel free to call me at [phone] with any questions or concerns about Ms. Grullon or this discharge. [id number]/[facility] #: [id number] [facility]ALSergio
== END 2017-06-19 17:53 | DRG 552 ==
LOC: MEDTELE 16:19 → OBSVTOIN 06-17 16:19
PROVIDERS: ADMIT Internal Medicine; ATTEND Internal Medicine
DX: M48.02 Spinal stenosis, cervical region (principal); G82.20 Paraplegia, unspecified; I82.491 Acute embolism and thrombosis of other specified deep vein of right lower extremity; I10 Essential (primary) hypertension; J44.9 Chronic obstructive pulmonary disease, unspecified; G43.909 Migraine, unspecified, not intractable, without status migrainosus; F32.9 Major depressive disorder, single episode, unspecified; M06.4 Inflammatory polyarthropathy; Z96.611 Presence of right artificial shoulder joint; Z96.692 Finger-joint replacement of left hand; Z96.652 Presence of left artificial knee joint; M11.80 Other specified crystal arthropathies, unspecified site; M48.061 Spinal stenosis, lumbar region without neurogenic claudication; M48.07 Spinal stenosis, lumbosacral region; M48.03 Spinal stenosis, cervicothoracic region; M48.04 Spinal stenosis, thoracic region; M50.30 Other cervical disc degeneration, unspecified cervical region; M47.812 Spondylosis without myelopathy or radiculopathy, cervical region; Z88.8 Allergy status to other drugs, medicaments and biological substances; Z88.0 Allergy status to penicillin; Z79.52 Long term (current) use of systemic steroids; Z79.01 Long term (current) use of anticoagulants
CPT/HCPCS: 36415; 70551; 72141; 72148; 80053; 85025; 87641; A9270-GY; G0378; G8978-GP-CM; G8978-GP-CN; G8979-GP-CI; G8987-GO-CK; G8988-GO-CI; G8989-GO-CI; J1644; J7512

== ENCOUNTER 2018-05-15 12:01 | Emergency (ER) | payer MEDICARE ==
--- NOTE | 2018-05-15 12:46 | ED ---
Syncope/Near Syncope - HPI Summary HPI Summary: This patient is an 82 year old female brought in by EMS presenting to [facility] with a chief complaint of syncope. She states she was watching TV when she had a syncopal episode and does not remember anything until she was in the ambulance. detention staff said she was staring off. The patient reports nausea and vomiting one time. She had a similar episode one week ago. She was seen by her PCP and he advised that she be observed at home. She states she is feeling ok now. - History Of Current Complaint Chief Complaint: EDSyncope Time Seen by Provider: 05/15/18 12:13 Hx Obtained From: Patient Onset/Duration: Sudden Onset Context: Witnessed Associated Signs And Symptoms: AMS, Vomiting - Allergies/Home Medications Allergies/Adverse Reactions: Allergies Allergy/AdvReac Type Severity Reaction Status Date / Time aspirin Allergy Rash Verified 05/15/18 12:10 Penicillins Allergy Unknown Verified 05/15/18 12:10 Reaction Details Home Medications: Home Medications Allopurinol TAB* [Zyloprim 100 MG TAB*] 100 mg PO DAILY 05/15/18 [History Confirmed 05/15/18] Carboxymethylcellulose Sodium [Refresh Tears] 1 drop BOTH EYES BEDTIME 05/15/18 [History Confirmed 05/15/18] Chlorhexidine MOUTHWASH 0.12%* [Peridex Mouth Wash 0.12%*] 15 ml SWISH SPIT TID PRN 05/15/18 [History Confirmed 05/15/18] Denosumab(NF) [Prolia(NF)] 60 mg SUBCUT Q6M 05/15/18 [History Confirmed 05/15/18 ] Escitalopram * [Lexapro 5 mg (NF)] 5 mg PO DAILY 05/15/18 [History Confirmed ] Prevagan 10 mg PO DAILY 05/15/18 [History Confirmed 05/15/18] Turmeric/Turmeric Root Extract [Turmeric 450-50 mg Capsule] 1 cap PO DAILY 05/15 [History Confirmed 05/15/18] Vitamin B Complex CAP* [B Complex CAP*] 1 cap PO DAILY 05/15/18 [History Confirmed 05/15/18] PMH/Surg Hx/FS Hx/Imm Hx Endocrine/Hematology History: Reports: Hx Anemia - HX OF- NOT AT PRESENT Denies: Hx Anticoagulant Therapy, Hx Blood Disorders, Hx Diabetes Cardiovascular History: Reports: Hx Hypertension, Other Cardiovascular Problems/ Disorders - 08/2012STUBBED TOE, CLOT INRT CALF, WAS ON COUMADIN 10 DAYS, OK NOW Denies: Hx Congestive Heart Failure, Hx Pacemaker/ICD Respiratory History: Reports: Hx Chronic Obstructive Pulmonary Disease (COPD), Other Respiratory Problems/Disorders - GONG COMPLEXES ON LUNG - NO SYMPTOMS - SHOWS ON XRAY Denies: Hx Asthma, Hx Lung Cancer, Hx Pulmonary Embolism, Hx Seasonal Allergies GI History: Reports: Hx Irritable Bowel, Other GI Disorders - FREQUENT BOWEL MOVEMENTS, RELATES TO DIET History: Reports: Other Problems/Disorders - 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-HESSON FOLLOWS Denies: Hx Dialysis, Hx Renal Disease Musculoskeletal History: Reports: Hx Arthritis - Rheumatoid and Osteo, Hx Rheumatoid Arthritis, Hx Osteoporosis - OA, Other Musculoskeletal History - RIGHT SHOULDER REPLACEMENT-11/2011 Denies: Hx Back Problems Sensory History: Reports: Hx Cataracts - lt catatracts, Hx Contacts or Glasses Denies: Hx Eye Injury, Hx Glaucoma, Hx Legally Blind, Hx Macular Degeneration , Hx Hearing Aid, Hx Hearing Problem Opthamlomology History: Reports: Hx Cataracts - lt catatracts, Hx Contacts or Glasses Denies: Hx Eye Injury, Hx Glaucoma, Hx Legally Blind, Hx Macular Degeneration Neurological History: Reports: Hx Headaches, Hx Migraine, Hx Nerve Disease - Nerve pain Denies: Hx Dementia, Hx Seizures Psychiatric History: Denies: Hx Panic Disorder - Cancer History Cancer Type, 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 Hx Chemotherapy: No Hx Radiation Therapy: No - Surgical History Surgery Procedure, Year, and Place: 11/2011-RIGHT SHOULDER REPLACEMENT-[facility] [place] 2007 LEFT KNEE REPLACEMENT-[facility] [place] 12/14/2007 LEFT KNEE ARTHROSCOPY, [facility] [place] [place] 12/18/2007 LEFT KNEE INCISION AND DRAINAGE, ARTHROSCOPIC WASHOUT, [id number] CARPAL TUNNEL RELEASE BILATERALLY-[facility] [place] BUNIONECTOMY BILATERAL-[facility] TONSILLECTOMY & ADENOIDECTOMY 2009 CLOSED REDUCTION RIGHT WRIST, [facility] [place] BILATERAL EYE CATARACT EXCISION WITH IOL IMPLANT, [facility] 2013 SURGICAL REMOVAL OF BILATERAL MANDIBULAR TORUS, [facility] 2014 LEFT HAND KNUCKLES REPLACEMENT, [place]. LEFT HIP REPLACMENT 2016 Hx Anesthesia Reactions: No - Immunization History Date of Tetanus Vaccine: Unk Date of Influenza Vaccine: Fall 2014 Immunizations Up to Date: Yes Infectious Disease History: No Infectious Disease History: Denies: Hx Clostridium Difficile, Hx Hepatitis, Hx of Known/Suspected MRSA, Hx Shingles, Hx Tuberculosis, Hx Known/Suspected VRE, Hx Known/Suspected VRSA, Traveled Outside the [place] in Last 30 Days - Family History Known Family History: Negative: Diabetes - Social History Alcohol Use: None Alcohol Amount: 1 GLASS OF WINE EACH EVENING Substance Use Type: Reports: None Smoking Status (MU): Never Smoked Tobacco Have You Smoked in the Last Year: No Review of Systems Negative: Fever Positive: Vomiting, Nausea Neurological: Other - AMS Positive: Syncope All Other Systems Reviewed And Are Negative: Yes Physical Exam - Summary Physical Exam Summary: Appearance: The patient is well-nourished in no acute distress and in no acute pain. Skin: The skin is warm and dry and skin color reflects adequate perfusion. HEENT: The head is normocephalic and atraumatic. The pupils are equal and reactive. The conjunctivae are clear and without drainage. Nares are patent and without drainage. Mouth reveals moist mucous membranes and the throat is without erythema and exudate. The external ears are intact. The ear canals are patent and without drainage. The tympanic membranes are intact. Neck: The neck is supple with full range of motion and non-tender. There are no carotid bruits. There is no neck vein distension. Respiratory: Chest is non-tender. Lungs are clear to auscultation and breath sounds are symmetrical and equal. Cardiovascular: Heart is regular rate and rhythm. Systolic ejection murmur. There is no peripheral edema and pulses are symmetrical and equal. Abdomen: The abdomen is soft and non-tender. There are normal bowel sounds heard in all four quadrants and there is no organomegaly palpated. Musculoskeletal: There is no back tenderness noted. Extremities are non-tender with full range of motion. There is good capillary refill. There is no peripheral edema or calf tenderness elicited. Kyphosis. Neurological: Patient is alert and oriented to person, place and time. The patient has symmetrical motor strength in all four extremities. Cranial nerves are grossly intact. Deep tendon reflexes are symmetrical and equal in all four extremities. Psychiatric: The patient has an appropriate affect and does not exhibit any anxiety or depression. GCS: 15 Triage Information Reviewed: Yes Vital Signs On Initial Exam: Initial Vitals Temp Pulse Resp BP Pulse Ox 97.4 F 69 16 110/54 95 05/15/18 12:05 05/15/18 12:05 05/15/18 12:05 05/15/18 12:05 05/15/18 12:05 Vital Signs Reviewed: Yes Diagnostics - Vital Signs Vital Signs Temp Pulse Resp BP Pulse Ox 05/15/18 12:05 97.4 F 69 16 110/54 95 - Laboratory Result Diagrams: 05/15/18 14:08 05/15/18 14:08 Lab Statement: Any lab studies that have been ordered have been reviewed, and results considered in the medical decision making process. - Radiology CXR Radiology Interpretation Completed By: Radiologist Summary of Radiographic Findings: Hyperinflation. No active cardiopulmonary disease. - CT Brain CT Interpretation Completed By: Radiologist Summary of CT Findings: 1. Age-appropriate chronic findings as described above without CT apparent cute inracranial abnormality. 2. Interval appearance of sphenoid sinusitis relative to the most recent CT of the brain. ED Provider has reviewed this report. - EKG 1251 Cardiac Rate: NL EKG Rhythm: Sinus Rhythm - 63 BPM Summary of EKG Findings: Normal sinus rhythm, normal ST, no ectopy, no STEMI National Institutes Of Health - NIH Scale Level of Consciousness: Alert/Keenly Responsive Ask Patient the Month and His/Her Age: Both Correct Ask Pt to Open/Close Eyes and Advertising Display Rotator/Release Non-Paretic Hand: Both Correctly Best Gaze (Only Horizontal Eye Movement): Normal Visual Field Testing: No Visual Loss Facial Paresis-Pt to Smile & Close Eyes or Grimace Symmetry: Normal/Symmetrical Motor Function - Right Arm: No Drift-Holds 10 Seconds Motor Function - Left Arm: No Drift-Holds 10 Seconds Motor Function - Right Leg: No Drift-Holds 10 Seconds Motor Function - Left Leg: No Drift-Holds 10 Seconds Limb Ataxia-Must be out of Proportion to Weakness Present: Absent Sensory (Use Pinprick to Test Arms/Legs/Trunk/Face): Normal Best Language (Describe Picture, Name Items): No Aphasia Dysarthria (Read Several Words): Normal Extinction and Inattention: No Abnormality Total Score: 0 Re-Evaluation - Re-Evaluation First Eval Re-Evaluation Time: 16:00 Comment: Discussed plan for discharge with patient. Course/Dx Course Of Treatment: Ms. Grullon was apparently sitting on the couch watching TV when she began to stare and not respond. She does not remember the incident but states that she feels fine. It's unclear how long the episode lasted. Here she was stable and nontoxic in appearance. Her vitals were within normal limits. She was kept on a monitor while labs were obtained which revealed some mild dehydration. She had had a liter of normal saline started in the ambulance and that was allowed to finish. At discharge the long-term called with a concern for head CT scan and her chronic left shoulder pain. CT and x- ray were within normal limits. I will let her go back to the long-term with a diagnosis of dehydration and syncope. - Diagnoses Provider Diagnoses: Syncope, Dehydration Discharge - Sign-Out/Discharge Documenting (check all that apply): Patient Departure - Discharge Patient Received Moderate/Deep Sedation with Procedure: No - Discharge Plan Condition: Stable Disposition: HOME Patient Education Materials: Dehydration (ED), Syncope (ED) Referrals: Veronica Levin MD [Primary Care Provider] - 3 Days Additional Instructions: Return to ED with any new or worsening symptoms. Follow up with primary care provider on Friday. - Billing Disposition and Condition Condition: STABLE Disposition: Home - Attestation Statements Document Initiated by Geena: Yes Documenting Scribe: Miles Rosado Provider For Whom Geena is Documenting (Include Credential): Yobani Nunez MD Scribe Attestation: I, Miles Roasdo, scribed for Yobani Nunez MD on 05/15/18 at 1738. Scribe Documentation Reviewed: Yes Provider Attestation: The documentation as recorded by the Miles hightower accurately reflects the service I personally performed and the decisions made by me, Yobani Nunez MD Status of Scribe Document: Viewed
--- OUTSIDE RECORDS SUMMARY | 2018-05-15 12:52 | XMS REPORT | Continuity of Care Document ---
:1935 External Reference #:[id number] Author Name Mary Blount Care Team Providers Name Role Phone Veronica Baca MD Primary Care Physician Unavailable Payers Date Identification Numbers Payment Provider Subscriber Effective: 2000 Policy Number: [id number] Medicare Reba S Humphrey PayID: [id number] [address] [place] [address] Policy Number: [id number] [facility] Reba S Humphrey PayID: [id number] [address] [place] [address] Advance Directives Description No Information Available Problems Date Description Provider Status Onset: 09/04/2012 Brachial neuritis Yobani Douglas M.D. Active Onset: 11/07/2015 Contracture of joint of hand Miles Pichardo MD Active Onset: 12/11/2015 Boutonniere deformity Miles Pichardo MD Active Onset: 06/12/2017 Inflammatory polyarthropathy Maryjo Richmond D.O. Active Onset: 06/12/2017 Acute hemorrhagic cystitis Maryjo Richmond D.O. Active Onset: 06/12/2017 Spasm Maryjo Richmond D.O. Active Onset: 06/12/2017 Fall Maryjo Richmond D.O. Active Onset: 06/12/2017 Urinary tract infectious disease Maryoj Richmond D.O. Active Onset: 06/12/2017 Essential hypertension Maryjo Richmond D.O. Active Onset: 06/12/2017 Chondrocalcinosis of knee joint Maryjo Richmond D.O. Active Onset: 06/12/2017 Gout aBilee Nobles, [employer] SUPERINTENDENT Active Onset: 06/12/2017 Knee pain Bailee ParekhSTEFANIA rubio Active Onset: 06/12/2017 Malaise and fatigue Bailee STEFANIA Nobles Active Onset: 06/12/2017 Dehydration Ashley BangSTEFANIA Active Onset: 06/12/2017 Disorder of musculoskeletal Ashley Bang, [employer] SUPERINTENDENT Active system Onset: 06/12/2017 Migraine with typical aura Johan Cabrales M.D. Active Onset: 06/12/2017 Localized, primary osteoarthritis Johan Cabrales M.D. Active of the hand Onset: 06/12/2017 Other osteoporosis without Johan Cabrales M.D. Active current pathological fracture Onset: 06/12/2017 Taking medication Johan Cabrales M.D. Active Onset: 06/12/2017 Age-related osteoporosis without Johan Cabrales M.D. Active current pathological fracture Onset: 06/12/2017 Migraine without aura, not Johan Cabrales M.D. Active refractory Onset: 06/12/2017 Localized, primary osteoarthritis Johan Cabrales M.D. Active Onset: 06/12/2017 Immunologic Johan Cabrales M.D. Active Onset: 06/12/2017 Localized, primary osteoarthritis Johan Cabrales M.D. Active of the shoulder region Onset: 06/12/2017 Strain of rotator cuff capsule Estuardo Marcial MD Active Onset: 06/12/2017 Calcium deposit in bursa Johan Cabrales M.D. Active Onset: 06/12/2017 Disorder of bursa of shoulder Johan Cabrales M.D. Active region Onset: 06/12/2017 Chronic kidney disease Johan Cabrales M.D. Active Onset: 06/12/2017 Other mechanical complication of Miles Pichardo MD Active other internal joint prosthesis, subsequent encounter Onset: 06/12/2017 Implantation of joint prosthesis Miles Pichardo MD Active Onset: 06/12/2017 Removal of suture Miles Pichardo MD Active Onset: 06/12/2017 Other mechanical complication of Ava Bermudez PA-C Active other internal joint prosthesis, initial encounter Onset: 06/12/2017 Shoulder joint pain Johan Cabrales M.D. Active Onset: 06/12/2017 Other fracture of left femur, Steve Sellers M.D. 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 Active skin Onset: 06/12/2017 Acquired trigger finger Johan Cabrales M.D. Active Onset: 06/12/2017 Synovitis and tenosynovitis Steve Sellers M.D. Active Onset: 06/12/2017 Nondisplaced fracture of acromial Steve Sellers M.D. Active process, left shoulder, subsequent encounter for fracture with delayed healing Onset: 06/12/2017 Minimal cognitive impairment Gamaliel Noguera M.D. Active Onset: 06/12/2017 Minimal cognitive impairment Gamaliel Noguera M.D. Active Onset: 06/12/2017 Contusion of shoulder region Tor Guillaume M.D. Active Onset: 06/12/2017 Brachial plexus disorder Gamaliel Noguera M.D. Active Onset: 06/12/2017 Acquired trigger finger Alisa Rojas M.D. Active Onset: 06/12/2017 Mononeuropathy of upper limb Fer Tenorio M.D. Onset: 06/12/2017 Injury of brachial plexus Gamaliel Noguera M.D. Active Onset: 06/12/2017 Disorder of jaw Yobani Douglas M.D. Active Onset: 06/12/2017 Hand joint pain Fer Tenorio M.D. Onset: 06/12/2017 Degenerative joint disease of Fer Tenorio hand Eric Onset: 06/12/2017 Degenerative joint disease of Tor Guillaume M.D. Active shoulder region Onset: 06/12/2017 Disorder of joint of shoulder Micha Rutherford, Active region R.P.A.-C Onset: 06/12/2017 Electrocardiogram abnormal Trenton Kelly M.D., Active FAC, FASNH Onset: 06/12/2017 Dyspnea Trenton Kelly M.D., Active FAC, FASNC Onset: 06/12/2017 Strain of rotator cuff capsule Steve Sellers M.D. Active Onset: 06/12/2017 Skin sensation disturbance Derrick Coffman M.D. Active Onset: 02/28/2016 Rheumatoid arthritis Miles Pichardo MD Resolved Resolved: 11/20/2016 Family History Date Family Member(s) Observation Comments General Arthritis Social History Type Date Description Comments Sex Unknown Lives With Alone Occupation Retired ETOH Use Occasionally consumes wine Tobacco Use Start: Unknown Patient has never smoked Smoking Status Reviewed: 04/29/18 Patient has never smoked Exercise Type/Frequency Exercises regularly Allergies, Adverse Reactions, Alerts Date Description Reaction Status Severity Comments 09/04/2012 Aspirin Active 11/24/2015 Flu Vaccine flushing Active 06/12/2017 Penicillin Active Medications Medication Date Status Form Strength Qnty SIG Indications Ordering Provider Prolia 07/30 Active Solution 60mg/ml 60mg 60 mg sc q6mon Erci Cabrales Butalbital/Acetamin 06/12 Active Tablets 50-325-40 30tab 1 tab PO Bailee ophen/Caffeine /2018 mg s qd STEFANIA Nobles Lexapro 06/12 Active Tablets 5mg 30tab 1 by mouth F33.0 s every day STEFANIA Nobles Prednisone 06/12 Active Tablets 5mg 28tab 1 tab po s qd as [place], needed for [employer] SUPERINTENDENT gout flare (she has not take this recently) Acetaminophen 06/12 Active Tablets 325mg 60tab 2 tablets s by mouth [place], every 6 [employer] SUPERINTENDENT hours as needed for pain/fever [facility] Vitamin B12 06/12 Active Tablets 1000mcg 90tab 1 by mouth s every day STEFANIA Nobles Allopurinol 11/23 Active Tablets 100mg 90tab take 1 M10.9 s tablet by Samra, mouth M.D. every day Gabapentin Active Capsules 100mg 90cap take 1 cap M06.4 s by mouth Samra, three M.D. times daily Ramipril Active Capsules 10mg 1 by mouth Unknown /0000 every day Eliquis Active Tablets 2.5mg 1 tablet Unknown /0000 by mouth twice a day. blood thinner. Cyclobenzaprine HCL Active Tablets 10mg 1 tablet Unknown /0000 by mouth q8 hours as needed muscle spasms Vitamin B Complex Active Tablets 1 by mouth Unknown /0000 every day Turmeric Active Capsules 450mg Unknown /0000 Colace 06/12 Hx Capsules 100mg 90cap 2 caps by K59.00 s mouth 2 Iglesiaton, - times a [employer] SUPERINTENDENT Cyclobenzaprine HCL 06/12 Hx Tablets 10mg 30tab 1 tablet R25.2 s by mouth Giuliano, - bid [employer]PER[employer]ENDENT 08/21 Ferrous Sulfate 06/12 Hx Tablets 325(65Fe) 90tab 1 by mouth Bailee mg s every day Giuliano, - [employer] SUPERINTENDENT 04/28 Omeprazole 06/12 Hx Capsules 20mg 90cap [address] s every day Giuliano, - [employer] SUPERINTENDENT 04/28 Tramadol HCL 06/12 Hx Tablets 50mg 30tab 1 tablets s by mouth Samra, - every 8 M.D. 12/22 hours needed pain MDD=3 B12 Fast Dissolve 12/22 Hx Tablets 5000mcg 90tab sl daily Dispers s Samra, - M.D. 12/26 Synvisc One 11/20 Hx Soln 48mg/6ML Prefill Samra, - Syringe M.D. 12/11 Prednisone 11/07 Hx Tablets 5mg 90tab 1 by mouth M06.4 s every Samra, - other day M.D. 12/11 Prolia 07/25 Hx Solution 60mg/ml 60mg 60 mg sc q6mon Samra, - M.D. 06/12 Fioricet 06/26 Hx Capsules 50-300-40 14cap take 1 mg s capsule by Samra, - mouth M.D. 06/12 as needed for migraines - maximum daily dose of 1 per day Fioricet 05/24 Hx Capsules 50-300-40 14cap Take 1 M06.4 mg s Capsule By Samra, - Mouth M.D. 06/26 as Needed For Pain Migraines Plaquenil 05/24 Hx Tablets 200mg 60tab take 1 M06.4 s tablet by Samra, - mouth M.D. 06/12 ongoing Hydrocodone-Acetami 01/10 Hx Tablets 5-325mg 30tab 1 tab by Miles kim s mouth Pichardo, - every 6 MD 05/28 hours needed for pain Colchicine 12/21 Hx Capsules 0.6mg 90cap take one M06.4 s by mouth Samra, - every day M.D. 05/24 Lyrica 01/13 Hx Capsules 25mg 30cap 1 po qhs S. s prn Poornima, - M.D. 07/14 Lyrica 12/16 Hx Capsules 50mg 90cap 1 po qhs S. s for 1 week Poornima, - [...] Hx Capsules 100mg 120ca Take 1Cap ps AT Bed May , - Increase M.D. 12/16 To 2Caps /2012 AT Bed Then 1Cap In Am And 2Caps AT Bed Then 3Caps X3 Daily Oxycodone HCL 12/11 Hx Tablets 5mg 90tab 1 tab by s mouth Markell, - every 3 M.D. 08 hours pain Tylenol/Codeine #3 11/14 Hx Tablets 300-30mg 60tab 1-2 po q Tor s 4-6 hr prn Markell, - pain M.D. 12/16 Clindamycin HCL Hx Capsules 75mg tid Unknown /0000 - 12/16 Estradiol 00 Hx Tablets 0.5mg 30tab 1/2 po qod Unknown /0000 s - 12/16 Ramipril Hx Capsules 10mg 90cap 1 po qd Unknown /0000 s - 02/19 Butalbital/Acetamin Hx Tablets 50-325-40 14tab Take 1 tab shun Cabrales/Caffeine /0000 mg s daily as Johan, - needed for 07/24 pain /2017 Warfarin Sodium Hx Tablets 5mg Unknown / - 05/31 Chlorhexidine Hx Solution 0.12% Unknown Gluconate Oral /0000 Rinse - 09/24 Multi For Her 50+ Hx Capsules 1 po qd Unknown / - 11/23 B-12 1000 / Hx Tablets 1000-400m 1 po daily Unknown / Sub cg - 12/20 Neurontin /00 Hx Unknown / - 09/24 Iron /00 Hx Tablets 325(65Fe) 1 by mouth Unknown /0000 mg qod - 11/23 Ciprofloxacin HCL Hx Tablets 250mg Unknown / - 10/25 Methylprednisolone Hx Tablets 4mg po as Unknown (Nicholas) /0000 directed - 11/24 Minocycline HCL Hx Capsules 100mg 1 cap po Unknown / bid - 11/24 Escitalopram Hx Tablets 5mg once daily Unknown Oxalate / - 06/12 Prevagen Hx Capsules 10mg Unknown / - 06/12 Hydroxychloroquine Hx Tablets 200mg 90tab take one Johan Sulfate /0000 s tablet by Samra - niesha M.DHoma 12/22 /2017 Colchicine Hx Capsules 0.6mg take one Unknown /0000 by mouth - every day 06/12 as needed /2017 for gout flare up Baclofen Hx Tablets 5mg 1 tab 2x a Unknown / day - 11/23 Plaquenil Hx Tablets 200mg 1 by mouth Unknown /0000 every day - 08/21 Prilosec OTC Hx Tablets 20mg 1 by mouth Unknown /0000 DR every day - 12/22 Vitamin B-12 Hx Tablets 500mcg 1 by mouth Unknown Natural / every day - 06/22 Vitamin B12 Hx Tablets 1000mcg 1 by mouth Unknown /0000 ER every day - 04/28 Medications Administered in Office Medication Date Status Form Strength Qnty SIG Indications Ordering Provider Depomedrol 40MG 11/24/ Administered Injection Julius Abel M.D. Prolia 02/11/ Administered Injection Johan Injection, 2017 Samra, Denosumab, 1MG M.D. Synvisc Or 11/20/ Administered Injection Johan Synvisc-One 2016 Samra, Injection 1 MG M.D. Prolia 07/25/ Administered Injection Johan Injection, 2016 Samra, Denosumab, 1MG M.D. Depomedrol 40MG 06/05/ Administered Injection Estuardo F 2016 MD Aggie Triamcinolone 02/19/ Administered Injection Johan (Kenalog) 2015 Eric Cabrales Prolia 12/21/ Administered Injection Johan Injection, 2015 Samra Denosumab, 1MG M.D. Depomedrol 40MG 10/11/ Administered Injection Steve Sellers 2015 Sania.Gris Depomedrol 80MG 06/23/ Administered Injection Alisa 2013 Eric Rojas Technetium TC 12/01/ Administered Injection Trenton Olivera 99M 2011 Maria Guadalupe Kelly M.D., FACC, Per Unit Dose FASNC Up To 40 Millicuries Depomedrol 80MG 05/09/ Administered Injection Steve Sellers, 2010 Eric Immunizations Description No Information Available Vital Signs Date Vital Result Comment 04/29/2018 1:48pm Height 64 inches 5'4" Weight 115.00 lb BP Systolic 120 mmHg BP Diastolic 64 mmHg Respiratory Rate 20 /min Body Temperature 97.2 F Pain Level 5 BMI (Body Mass Index) 19.7 kg/m2 12/22/2017 11:30am Height 64 inches 5'4" Weight 115.00 lb pt. stated BP Systolic Sitting 138 mmHg BP Diastolic Sitting 86 mmHg Respiratory Rate 14 /min Pain Level 3 BMI (Body Mass Index) 19.7 kg/m2 11/24/2017 2:17pm Height 64 inches 5'4" BP Systolic 124 mmHg BP Diastolic 70 mmHg Respiratory Rate 20 /min Body Temperature 97.5 F Pain Level 7 08/21/2017 3:46pm Height 64 inches 5'4" Heart Rate 90 /min BP Systolic Sitting 122 mmHg BP Diastolic Sitting 72 mmHg Respiratory Rate 14 /min Pain Level 0 06/30/2017 6:24pm Heart Rate 80 /min BP Systolic Sitting 120 mmHg BP Diastolic Sitting 70 mmHg Respiratory Rate 16 /min Body Temperature 97.3 F O2 % BldC Oximetry 96 % 06/24/2017 10:57am Height 64 inches 5'4" Weight 110.00 lb Heart Rate 62 /min BP Systolic 96 mmHg BP Diastolic 54 mmHg BMI (Body Mass Index) 18.9 kg/m2 05/12/2017 12:01pm Height 64 inches 5'4" Weight 112.00 lb Heart Rate 100 /min BP Systolic Sitting 171 mmHg BP Diastolic Sitting 85 mmHg Respiratory Rate 14 /min Pain Level 2 BMI (Body Mass Index) 19.2 kg/m2 02/11/2017 2:43pm Height 64 inches 5'4" Weight 115.00 lb Heart Rate 90 /min BP Systolic Sitting 140 mmHg BP Diastolic Sitting 86 mmHg Respiratory Rate 14 /min Pain Level 6 BMI (Body Mass Index) 19.7 kg/m2 12/27/2016 10:03am Height 64 inches 5'4" Weight 116.00 lb Heart Rate 70 /min BP Systolic 136 mmHg BP Diastolic 62 mmHg BMI (Body Mass Index) 19.9 kg/m2 12/11/2016 4:20pm Height 64 inches 5'4" Weight 118.00 lb Heart Rate 80 /min BP Systolic Sitting 122 mmHg BP Diastolic Sitting 84 mmHg Respiratory Rate 14 /min Pain Level 1 BMI (Body Mass Index) 20.3 kg/m2 11/07/2016 4:41pm Height 64 inches 5'4" Weight 116.00 lb Heart Rate 80 /min BP Systolic Sitting 140 mmHg BP Diastolic Sitting 90 mmHg Respiratory Rate 14 /min Pain Level 2 BMI (Body Mass Index) 19.9 kg/m2 10/30/2016 1:52pm Height 64 inches 5'4" Weight 114.00 lb Heart Rate 88 /min BP Systolic Sitting 140 mmHg BP Diastolic Sitting 88 mmHg Respiratory Rate 15 /min BMI (Body Mass Index) 19.6 kg/m2 08/05/2016 11:16am Height 64 inches 5'4" Weight 111.00 lb Heart Rate 94 /min BP Systolic 138 mmHg BP Diastolic 77 mmHg Body Temperature 98.3 F BMI (Body Mass Index) 19.1 kg/m2 07/25/2016 11:59am Height 64 inches 5'4" Heart Rate 76 /min BP Systolic Sitting 160 mmHg BP Diastolic Sitting 90 mmHg Respiratory Rate 14 /min 06/05/2016 1:50pm Height 64 inches 5'4" Weight 111.00 lb Heart Rate 62 /min BP Systolic Sitting 100 mmHg BP Diastolic Sitting 66 mmHg Respiratory Rate 14 /min Body Temperature 96.9 F Pain Level 6 BMI (Body Mass Index) 19.1 kg/m2 05/30/2016 1:07pm Height 65 inches 5'5" Weight 111.00 lb Heart Rate 84 /min BP Systolic 153 mmHg BP Diastolic 77 mmHg Respiratory Rate 15 /min Body Temperature 98.3 F Pain Level 7 BMI (Body Mass Index) 18.5 kg/m2 05/24/2016 10:27am Height 65 inches 5'5" Weight 111.00 lb Heart Rate 80 /min BP Systolic Sitting 170 mmHg BP Diastolic Sitting 80 mmHg Respiratory Rate 14 /min Pain Level 2 BMI (Body Mass Index) 18.5 kg/m2 02/28/2016 2:39pm Height 65 inches 5'5" Weight 104.00 lb Heart Rate 88 /min BP Systolic 194 mmHg BP Diastolic 92 mmHg BMI (Body Mass Index) 17.3 kg/m2 02/20/2016 9:41am Height 65 inches 5'5" Weight 109.00 lb Heart Rate 100 /min BP Systolic Sitting 160 mmHg BP Diastolic Sitting 70 mmHg Body Temperature 98.3 F Pain Level 1 BMI (Body Mass Index) 18.1 kg/m2 01/29/2016 11:23am Height 65 inches 5'5" Weight 105.38 lb Heart Rate 62 /min BP Systolic Sitting 140 mmHg BP Diastolic Sitting 80 mmHg Respiratory Rate 14 /min Body Temperature 97.3 F Pain Level 2 BMI (Body Mass Index) 17.5 kg/m2 01/26/2016 11:01am Height 65 inches 5'5" Weight 104.00 lb Heart Rate 60 /min Respiratory Rate 16 /min Body Temperature 97.1 F Pain Level 5 BMI (Body Mass Index) 17.3 kg/m2 01/16/2016 2:57pm Height 65 inches 5'5" Weight 104.00 lb Body Temperature 98.5 F Pain Level 0 BMI (Body Mass Index) 17.3 kg/m2 01/01/2016 4:07pm Height 65 inches 5'5" Weight 104.00 lb Heart Rate 64 /min BP Systolic Sitting 164 mmHg BP Diastolic Sitting 82 mmHg Respiratory Rate 16 /min Pain Level 0 BMI (Body Mass Index) 17.3 kg/m2 12/22/2015 11:12am Height 65 inches 5'5" Weight 102.50 lb Heart Rate 84 /min BP Systolic Sitting 136 mmHg BP Diastolic Sitting 78 mmHg Respiratory Rate 14 /min Body Temperature 98.6 F Pain Level 2 L shoulder BMI (Body Mass Index) 17.1 kg/m2 12/11/2015 2:22pm Height 65 inches 5'5" Weight 104.00 lb Respiratory Rate 16 /min Pain Level 4 BMI (Body Mass Index) 17.3 kg/m2 11/29/2015 11:03am Height 65 inches 5'5" Weight 104.00 lb Heart Rate 85 /min BP Systolic 160 mmHg BP Diastolic 75 mmHg BMI (Body Mass Index) 17.3 kg/m2 11/24/2015 10:35am Height 65 inches 5'5" Weight 104.00 lb Heart Rate 80 /min BP Systolic Sitting 128 mmHg BP Diastolic Sitting 66 mmHg Body Temperature 97.9 F Pain Level 2 BMI (Body Mass Index) 17.3 kg/m2 11/09/2015 10:17am Height 65 inches 5'5" Weight 103.38 lb Heart Rate 76 /min BP Systolic Sitting 120 mmHg BP Diastolic Sitting 66 mmHg Respiratory Rate 14 /min Body Temperature 98.1 F Pain Level 3 BMI (Body Mass Index) 17.2 kg/m2 11/07/2015 2:59pm Height 65 inches 5'5" Weight 105.00 lb Pain Level 5 BMI (Body Mass Index) 17.5 kg/m2 11/01/2015 3:46pm Body Temperature 98.4 F 11/01/2015 3:22pm Height 65 inches 5'5" Weight 100.00 lb Pain Level 10 03/29 not moving BMI (Body Mass Index) 16.6 kg/m2 10/12/2015 2:47pm Height 65 inches 5'5" Weight 100.00 lb Heart Rate 97 /min BP Systolic 119 mmHg BP Diastolic 70 mmHg BMI (Body Mass Index) 16.6 kg/m2 12/21/2014 10:23am Height 64 inches 5'4" Weight 100.00 lb Heart Rate 112 /min BP Systolic Sitting 112 mmHg BP Diastolic Sitting 62 mmHg Respiratory Rate 16 /min BMI (Body Mass Index) 17.2 kg/m2 10/28/2014 10:54am Height 64 inches 5'4" Weight 101.00 lb Heart Rate 92 /min BP Systolic Sitting 138 mmHg BP Diastolic Sitting 64 mmHg Respiratory Rate 16 /min BMI (Body Mass Index) 17.3 kg/m2 09/27/2014 11:00am Height 64 inches 5'4" Weight 102.50 lb Heart Rate 88 /min BP Systolic Sitting 120 mmHg BP Diastolic Sitting 52 mmHg Respiratory Rate 16 /min BMI (Body Mass Index) 17.6 kg/m2 04/14/2014 1:48pm Height 64 inches 5'4" Weight 102.00 lb Heart Rate 82 /min BP Systolic 176 mmHg BP Diastolic 82 mmHg BMI (Body Mass Index) 17.5 kg/m2 07/15/2013 11:13am Height 65 inches 5'5" Heart Rate 100 /min BP Systolic 125 mmHg BP Diastolic 72 mmHg 07/08/2013 10:03am Height 65 inches 5'5" Weight 108.00 lb Heart Rate 91 /min BP Systolic 172 mmHg BP Diastolic 86 mmHg BMI (Body Mass Index) 18.0 kg/m2 06/23/2013 1:28pm Height 64.5 inches 5'4.50" Weight 110.00 lb Heart Rate 74 /min BP Systolic Sitting 122 mmHg BP Diastolic Sitting 78 mmHg BMI (Body Mass Index) 18.6 kg/m2 01/13/2013 1:58pm Heart Rate 84 /min BP Systolic Sitting 120 mmHg BP Diastolic Sitting 76 mmHg Respiratory Rate 16 /min 09/18/2012 10:13am Height 66 inches 5'6" Weight 110.00 lb Heart Rate 64 /min BP Systolic 118 mmHg BP Diastolic 66 mmHg Body Temperature 98.4 F BMI (Body Mass Index) 17.8 kg/m2 09/04/2012 9:34am Height 66 inches 5'6" Weight 110.00 lb Heart Rate 72 /min BP Systolic 128 mmHg BP Diastolic 60 mmHg Body Temperature 98.4 F BMI (Body Mass Index) 17.8 kg/m2 Results Test Date Facility Test Result H/L Range Note Basic Metabolic 03/05/2018 [facility] Sodium 139 mmol/L N 135- 145 Panel [address] [place] [address] [phone] Potassium 5.0 mmol/L N 3.5-5.0 Chloride 105 mmol/L N 101-111 Co2 Carbon Dioxide 28 mmol/L N 22-32 Anion Gap 6 mmol/L N 2-11 Glucose 87 mg/dL N 70-100 Blood Urea Nitrogen 24 mg/dL N 6-24 Creatinine 0.87 mg/dL N 0.51-0.95 BUN/Creatinine Ratio 27.6 High 8-20 Calcium 9.6 mg/dL N 8.6-10.3 Egfr Non- 62.3 >60 Egfr 75.4 >60 1 Laboratory test 08/28/2017 [facility] Uric Acid 5.8 mg/dL N 2.3-6.6 2, [address] [place] [address] [phone] Laboratory test 08/28/2017 [facility] C Reactive 7.61 mg/L N < 8.01 [address] [place] [address] [phone] Creatine Kinase(CK) 104 U/L N 10-223 5 Vitamin D Total 25(Oh) 43.5 ng/mL N 20-50 6 Erythrocyte Sed Rate 15 mm/Hr N 0-40 7 Vitamin D, 1,25 Dihydroxy 49 pg/mL 18-78 8 Connective Tissue 12/13/2016 [facility] Anti-Nuclear Antibody 0.2 U N 9 Panel [address] [place] [address] [phone] Cyclic Citrullinated Peptide <15.6 U N 10 Interpretation See Comment N 11 Laboratory test 12/13/2016 [facility] Rheumatoid Factor <15 IU/ mL N <15 12 finding [address] [place] [address] [phone] Cyclic Citrullinated Pep Igg TNP N () 13 Uric Acid 6.7 mg/dL High 2.3-6.6 14 CBC Auto Diff 12/13/2016 [facility] White Blood 8.3 10^3/uL N 3.5-10.[address] [place] [address] [phone] Red Blood Count 3.12 10^6/uL Low 4.0-5.4 Hemoglobin 11.9 g/dL Low 12.0-16.0 Hematocrit 34 % Low 35-47 Mean Corpuscular Volume 110 fL High 80-97 Mean Corpuscular Hemoglobin 38 pg High 27-31 Mean Corpuscular HGB Conc 35 g/dL N 31-36 Red Cell Distribution Width 14 % N 10.5-15 Platelet Count 335 10^3/uL N 150-450 Mean Platelet Volume 7 um3 Low 7.4-10.4 Abs Neutrophils 6.2 10^3/uL N 1.5-7.7 Abs Lymphocytes 1.5 10^3/uL N 1.0-4.8 Abs Monocytes 0.5 10^3/uL N 0-0.8 Abs Eosinophils 0 10^3/uL N 0-0.6 Abs Basophils 0.1 10^3/uL N 0-0.2 Abs Nucleated RBC 0 10^3/uL N Granulocyte % 74.7 % N 38-83 Lymphocyte % 17.6 % Low 25-47 Monocyte % 6.2 % N 1-9 Eosinophil % 0.4 % N 0-6 Basophil % 1.1 % N 0-2 Nucleated Red Blood Cells % 0 N Comp Metabolic Panel 12/13/2016 [facility] Sodium 134 mmol/L N 133-[address] [place] [address] [phone] Potassium 4.9 mmol/L N 3.5-5.0 Chloride 99 mmol/L Low 101-111 Co2 Carbon Dioxide 25 mmol/L N 22-32 Anion Gap 10 mmol/L N 2-11 Glucose 96 mg/dL N 70-100 Blood Urea Nitrogen 22 mg/dL N 6-24 Creatinine 0.93 mg/dL N 0.51-0.95 BUN/Creatinine Ratio 23.7 High 8-20 Calcium 9.6 mg/dL N 8.6-10.3 Total Protein 7.0 g/dL N 6.4-8.9 Albumin 4.5 g/dL N 3.2-5.2 Globulin 2.5 g/dL N 2-4 Albumin/Globulin Ratio 1.8 N 1-3 Total Bilirubin 0.40 mg/dL N 0.2-1.0 Alkaline Phosphatase 92 U/L N 34-104 Alt 13 U/L N 7-52 Ast 21 U/L N 13-39 Egfr Non- 57.9 N >60 Egfr 74.4 N >60 15 Laboratory test 12/13/2016 [facility] C Reactive 3.11 mg/L N < 5.00 [address] [place] [address] [phone] Erythrocyte Sed Rate 10 mm/Hr N 0-40 17 Laboratory test 06/25/2016 [facility] Erythrocyte Sed 10 mm/Hr N 0-40 [address] [place] [address] [phone] C Reactive Protein 2.33 mg/L N < 5.00 19 Uric Acid 4.8 mg/dL N 2.3-6.6 20 CBC Auto Diff 06/25/2016 [facility] White Blood 6.8 10^3/uL N 3.5-10.[address] [place] [address] [phone] Red Blood Count 3.46 10^6/uL Low 4.0-5.4 Hemoglobin 12.6 g/dL N 12.0-16.0 Hematocrit 38 % N 35-47 Mean Corpuscular Volume 110 fL High 80-97 21 Mean Corpuscular Hemoglobin 37 pg High 27-31 Mean Corpuscular HGB Conc 33 g/dL N 31-36 Red Cell Distribution Width 15 % N 10.5-15 Platelet Count 302 10^3/uL N 150-450 Mean Platelet Volume 7 um3 Low 7.4-10.4 Abs Neutrophils 4.4 10^3/uL N 1.5-7.7 Abs Lymphocytes 1.6 10^3/uL N 1.0-4.8 Abs Monocytes 0.6 10^3/uL N 0-0.8 Abs Eosinophils 0.1 10^3/uL N 0-0.6 Abs Basophils 0.1 10^3/uL N 0-0.2 Abs Nucleated RBC 0 10^3/uL N Granulocyte % 64.4 % N 38-83 Lymphocyte % 24.1 % Low 25-47 Monocyte % 9.1 % High 1-9 Eosinophil % 1.0 % N 0-6 Basophil % 1.4 % N 0-2 Nucleated Red Blood Cells % 0 N Comp Metabolic Panel 06/25/2016 [facility] Sodium 138 mmol/L N 133-[address] [place] [address] [phone] Potassium 4.9 mmol/L N 3.5-5.0 Chloride 100 mmol/L Low 101-111 Co2 Carbon Dioxide 29 mmol/L N 22-32 Anion Gap 9 mmol/L N 2-11 Glucose 106 mg/dL High 70-100 Blood Urea Nitrogen 30 mg/dL High 6-24 Creatinine 1.02 mg/dL High 0.51-0.95 BUN/Creatinine Ratio 29.4 High 8-20 Calcium 10.1 mg/dL N 8.6-10.3 Total Protein 7.4 g/dL N 6.4-8.9 Albumin 4.7 g/dL N 3.2-5.2 Globulin 2.7 g/dL N 2-4 Albumin/Globulin Ratio 1.7 N 1-3 Total Bilirubin 0.60 mg/dL N 0.2-1.0 Alkaline Phosphatase 108 U/L High 34-104 Alt 15 U/L N 7-52 Ast 28 U/L N 13-39 Egfr Non- 52.1 N >60 Egfr 67.1 N >60 22 Laboratory test 01/11/2016 [facility] Surgical SEE RESULT 23, 24 finding [address] [address] Pathology [place], [place] [id number] [phone] Laboratory test 11/24/2015 [facility] Body Fluid (SEE NOTE) N 25, [address] [place], [place] [id number] [phone] Laboratory test 11/24/2015 [facility] Gram Stain <pending> finding [address] [place] [address] [phone] Body Fluid Cell 11/24/2015 [facility] Body Fluid Synovial N Count [address] [place] [address] [phone] Body Fluid Appearance Cloudy N Body Fluid Color [place] N Body Fluid Volume 3 mL N Body Fluid Neutrophils 3 % N Body Fluid Lymph 55 % N Body Fluid [place] 42 % N Body Fluid Total Cells Counted 100 N Body Fluid WBC 1008 /mcL N 27 Body Fluid RBC 97780 /mcL N Fluid Reviewed By MD (SEE NOTE) N 28 Body Fluid C&S 11/24/2015 [facility] Body Fluid SEE RESULT [address] [place] [address] Stain [phone] Laboratory test 11/24/2015 [facility] MRSA/S. aureus SEE RESULT [address] Ssti PCR [place], [place] [address] [phone] Laboratory test 11/24/2015 [facility] Body Fluid <pending> finding [address] [place], [place] [address] [phone] Laboratory test 11/09/2015 [facility] C Reactive 36.03 mg/L High < [address] Protein 5.00 [place], [place] [address] [phone] Cyclic Citrullinated Pep Igg <15.6 U N 32 Rheumatoid Factor <15 IU/mL N <15 33 Uric Acid 9.7 mg/dL High 2.3-6.6 34 CBC Auto Diff 11/09/2015 [facility] White Blood 6.9 10^3/uL N 3.5-10.[address] [place] [address] [phone] Red Blood Count 3.07 10^6/uL Low 4.0-5.4 Hemoglobin 11.4 g/dL Low 12.0-16.0 Hematocrit 34 % Low 35-47 Mean Corpuscular Volume 111 fL High 80-97 35 Mean Corpuscular Hemoglobin 37 pg High 27-31 Mean Corpuscular HGB Conc 34 g/dL N 31-36 Red Cell Distribution Width 16 % High 10.5-15 Platelet Count 396 10^3/uL N 150-450 Mean Platelet Volume 7 um3 Low 7.4-10.4 Abs Neutrophils 3.7 10^3/uL N 1.5-7.7 Abs Lymphocytes 2.4 10^3/uL N 1.0-4.8 Abs Monocytes 0.6 10^3/uL N 0-0.8 Abs Eosinophils 0.1 10^3/uL N 0-0.6 Abs Basophils 0.1 10^3/uL N 0-0.2 Abs Nucleated RBC 0 10^3/uL N Granulocyte % 53.8 % N 38-83 Lymphocyte % 34.5 % N 25-47 Monocyte % 9.0 % N 1-9 Eosinophil % 1.8 % N 0-6 Basophil % 0.9 % N 0-2 Nucleated Red Blood Cells % 0 N Anca AB Ser If 11/09/2015 [facility] C-Anca Negative N Negative [address] [place] [address] [phone] P-Anca Positive N Negative 36 Laboratory test 11/09/2015 [facility] Anti Nuclear 0.3 U N [address] [place] [address] [phone] Comp Metabolic 11/09/2015 [facility] Sodium 133 mmol/L N 133- [address] [place] [address] [phone] Potassium 5.1 mmol/L High 3.5-5.0 Chloride 100 mmol/L Low 101-111 Co2 Carbon Dioxide 26 mmol/L N 22-32 Anion Gap 7 mmol/L N 2-11 Glucose 94 mg/dL N 70-100 Blood Urea Nitrogen 24 mg/dL N 6-24 Creatinine 1.12 mg/dL High 0.51-0.95 BUN/Creatinine Ratio 21.4 High 8-20 Calcium 9.2 mg/dL N 8.6-10.3 Total Protein 6.8 g/dL N 6.4-8.9 Albumin 4.2 g/dL N 3.2-5.2 Globulin 2.6 g/dL N 2-4 Albumin/Globulin Ratio 1.6 N 1-3 Total Bilirubin 0.30 mg/dL N 0.2-1.0 Alkaline Phosphatase 106 U/L High 34-104 Alt 8 U/L N 7-52 Ast 18 U/L N 13-39 Egfr Non- 46.8 N >60 Egfr 60.2 N >60 38 Laboratory test 11/09/2015 [facility] Myeloperoxidase AB <0.2 U N 39 finding [address] [place] [address] [phone] Proteinase 3 <0.2 U N 40 Laboratory test 09/30/2014 [facility] Vitamin B12 245 pg/mL N 180-914 41 finding [address] [place] [address] [phone] TSH (Thyroid Stim Horm) 2.43 ?IU/mL N 0.34-5.60 1 Because ethnic data is not always readily [...] 15-29 5 Kidney failure <15 (or dialysis) 2 [id number] 3 [id number] 4 [id number] 5 [id number] 6 [id number] 7 [id number] 8 ADDITIONAL INFORMATION This test was developed and its performance characteristics determined by [facility] in a manner consistent with CLIA requirements. This test has not been cleared or approved by the U.S. Food and Drug Administration. Test Performed by: [facility] [address] [id number] 9 REFERENCE VALUE <=1.0 (Negative) 10 REFERENCE VALUE <20.0 (Negative) 11 Tests for antibodies to dsDNA and AMBRE antigens are not performed automatically unless the RYLIE result is > or= 3.0 U. Studies performed at [facility] indicate that positive RYLIE results <3.0 U are rarely accompanied by positive second order tests. Test Performed by: [place] [address] 12 Test Performed by: [place] [address] 13 Cancelled due to duplicate test on this order Test Performed by: [place] [address] 14 Please check labs this week 15 Because ethnic data is not always readily [...] 15-29 5 Kidney failure <15 (or dialysis) 16 Acute inflammation: >10.00 17 Please check labs this week 18 Please check labs this week 19 Acute inflammation: >10.00 20 Please check labs this week 21 Consistent with previous results on 11/09/15. 22 Because ethnic data is not always readily [...] 15-29 5 Kidney failure <15 (or dialysis) 23 [id number] 24 SEE RESULT BELOW Name: REBA GRULLON : [address]: Miles Pichardo MD Acct: [id number] Unit: [id number] AGE: 80 Location: [facility] Re01/11/16 SEX: F Status: REG [facility] SPEC: [id number] SINTIA: 01/11/16-[address] [facility] [address]: Miles Pichardo MD REQ: [id number] RECD: 01/12/161026 STATUS: SOUT _ ORDERED: LEVEL I COMMENTS: [id number] FINAL DIAGNOSIS Index, long and ring fingers, [...] performed at Main Lab DEPARTMENT OF PATHOLOGY, [address] [place] [address] Konrad Lonoey M.D. Director [facility] # [id number] 25 [id number] 26 Calcium pyrophosphate 27 -- REFERENCE VALUE -- Synovial: <150/mcL Peritoneal: <500/mcL Pleural: <500/mcL Pericardial: <500/mcL 28 Predominantly macrophages. No evidence of an acute inflammatory response. No evidence of malignancy. Reviewed by Janey Reynaga MD 29 SEE RESULT BELOW Name: KMREBA : [address]: Johan Cabrales MD Acct: [id number] Unit: [id number] AGE: 80 Location: [facility] Re11/24/15 SEX: F Status: REG REF SPEC: [id number] SINTIA: 11/24/15-[address] [facility] [address]: Johan Cabrales MD REQ: [id number] RECD: 11/24/15 STATUS: COMP _ SOURCE: BODY FLUID SPDESC: ORDERED: JUAN R Breen/BULMARO COMMENTS: [id number] Procedure Result Reported Site Body Fluid Gram Stain Final 11/25/15- 728 ML 1+ Neutrophils 1+ Nucleated Cells No Organisms Seen Preparation By Cytospin Smear Body Fluid Culture Final 11/28/15- 810 ML No Growth Day 4 * ML - MAIN LAB ([facility]) . END OF REPORT * ML=Testing performed at Main Lab DEPARTMENT OF PATHOLOGY, [address] [place] [place] [address] Konrad Looney M.D. Director [facility] # [id number] 30 SEE RESULT BELOW Name: REBA GRULLON : [address]: Johan Cabrales MD Acct: [id number] Unit: [id number] AGE: 80 Location: [facility] Re11/24/15 SEX: F Status: REG REF SPEC: [id number] SINTIA: 11/24/15-[address] [facility] [address]: Johan Cabrales MD REQ: [id number] RECD: 11/24/15 STATUS: COMP _ SOURCE: BODY FLUID SPDESC:NOS ORDERED: MRSA/SA SSTI Procedure Result Reported Site MRSA/S. aureus SSTI PCR Final 11/24/152140 ML Organism 1 MRSA NEGATIVE Organism 2 S.AUREUS NEGATIVE * ML - MAIN LAB ([facility]) . END OF REPORT * ML=Testing performed at Main Lab DEPARTMENT OF PATHOLOGY, [address] [place] [place] [address] Konrad Looney M.D. Director [facility] # [id number] 31 Acute inflammation: >10.00 32 REFERENCE VALUE <20.0 (Negative) Test Performed by: [place] [address] Loin Puller: Dewayne Pennington II, M.D., Ph.D. 33 Test Performed by: [place] [address] Loin Puller: Dewayne Pennington II, M.D., Ph.D. 34 Please check labs today 35 Consistent with previous results on 09/11/15. 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 Suggest further testing for anti-myeloperoxidase (anti-MPO) antibodies, if clinically indicated. ADDITIONAL INFORMATION This test was developed and its performance characteristics determined by [facility] in a manner consistent with CLIA requirements. This test has not been cleared or approved by the U.S. Food and Drug Administration. Test Performed by: [place] [address] Loin Puller: Dewayne Pennington II, M.D., Ph.D. 37 REFERENCE VALUE <=1.0 (Negative) Test Performed by: [place] [address] Loin Puller: Dewayne Pennington II, M.D., Ph.D. 38 Because ethnic data is not always readily [...] 15-29 5 Kidney failure <15 (or dialysis) 39 REFERENCE VALUE <0.4 (Negative) Test Performed by: [place] [address] Loin Puller: Dewayne Pennington II, M.D., Ph.D. 40 REFERENCE VALUE <0.4 (Negative) Test Performed by: [place] [address] Loin Puller: Dewayne Pennington II, M.D., Ph.D. 41 Normal Range 180 to 914 Indeterminate Range 145 to 180 Deficient Range <145 Procedures Date Code Description Status 04/29/2018 Inject/Drain Joint/Bursa Major W/O US Completed 11/24/2017 Inject/Drain Joint/Bursa Major W/O US Completed 02/11/2017 09064 Admin Of Inj Completed 11/20/2016 Inject/Drain Joint/Bursa Major W/O US Completed 07/25/2016 98908 Chemotherpy Admin Subcutaneous/Im Non-Hormonal Completed Anti-Neoplastic 06/05/2016 Inject/Drain Joint/Bursa Major W/O US Completed 02/20/2016 Inject/Drain Joint/Bursa Major W/O US Completed 01/11/2016 80363 Remove Implant From Finger/Hand Completed 01/11/2016 41378 Remove Implant From Finger/Hand Completed 01/11/201695460 Remove Implant From Finger/Hand Completed 01/11/2016 38866 Tenolysis Extensor Tendon Hand Or Finger Completed 01/11/2016 60943 Tenolysis Extensor Tendon Hand Or Finger Completed 01/11/2016 78878 Tenolysis Extensor Tendon Hand Or Finger Completed 01/11/2016 90852 Tenotomy Extensor Hand Or Finger Open Completed 01/11/2016 27541 Arthroplasty Metacarpophalangeal Joint W/Prosthetic Completed Implant 01/11/2016 13591 Arthroplasty Metacarpophalangeal Joint W/Prosthetic Completed Implant 01/11/2016 10283 Arthroplasty Metacarpophalangeal Joint W/Prosthetic Completed Implant 01/11/2016 53220 Arthroplasty Metacarpophalangeal Joint W/Prosthetic Completed Implant 01/11/2016 43062 Arthroplasty Metacarpophalangeal Joint W/Prosthetic Completed Implant 01/11/2016 52151 Arthroplasty Metacarpophalangeal Joint W/Prosthetic Completed Implant 01/11/2016 45789 Arthrodesis IP JT W/Wo Fixation Completed 12/22/2015 74524 Chemotherpy Admin Subcutaneous/Im Non-Hormonal Completed Anti-Neoplastic 11/24/2015 17356 Inject/Drain Joint/Bursa Major W/O US Completed 10/12/2015 82727 Inject/Drain Joint/Bursa Major W/O US Completed 07/08/2013 59035 Rad Exam; Hand Comp Completed 06/23/2013 08561 Inject Tendon Sheath Or Ligament Aponeurosis Eg Plantar Completed Fascia 03/10/2012 62934 Rad Shoulder Comp, Min. 2 Views Completed 02/14/2012 50328 Rad Exam; Hand Comp Completed 12/12/2011 09825 Rad Shoulder Comp, Min. 2 Views Completed 12/06/2011 75371 Arthroplasty,Total Shoulder Replacement (TSR) Completed 12/06/2011 92269 Arthroplasty,Total Shoulder Replacement (TSR) Completed 12/03/2011 08273 ECHO Transthoracic, Real-Time 2D With Doppler And Color Completed Flow 12/02/2011 11084 Stress Test Completed 12/02/2011 57340 Myocardial Perfusion Imaging Tomographic (Spect) Completed Multiple Studies 11/29/2011 99640 EKG Tracing & Interpretation Completed 11/22/2011 70888 Rad Shoulder Comp, Min. 2 Views Completed 09/26/2011 14896645 Mammogram Completed 05/09/2010 49175 Rad Shoulder Comp, Min. 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 polyarthropathy M10.9 Gout, unspecified M62.81 Muscle weakness (generalized) M81.8 Other osteoporosis without current pathological fracture Office 06/24/2017 Neurohospitalist Gamaliel Cast G43.009 Migraine w/o Visit 9:45a Clinic Eric Noguera aura, not intractable, w/o status migrainosus M48.03 Spinal stenosis, cervicothoracic region Office Visit 06/20/2017 11:00a [facility] M48.03 Spinal stenosis, MD Azeem cervicothoracic region M48.07 Spinal stenosis, lumbosacral region G43.001 Migraine w/o aura, not intractable, with status migrainosus R53.1 Weakness Office Visit 06/19/2017 9:49a [facility] Ana Laura R29.818 Other symptoms Assoc,pc Landy, DO and signs Hospitalists involving the nervous system R60.0 Localized edema R53.81 Other malaise Z87.39 Personal history of diseases of the ms sys and conn tiss Office 06/17/2017 Neurohospitalist Lashaun M48.03 Spinal stenosis, Visit 7:00a Tracey Brush MD cervicothoracic region M62.81 Muscle weakness (generalized) Office Visit 06/17/2017 Neurosurgery Kelsey Arora, M62.81 Muscle weakness 7:00a Services Of Briana ROSE (generalized) M48.03 Spinal stenosis, cervicothoracic region M48.07 Spinal stenosis, lumbosacral region Office Visit 06/16/2017 9:46a [facility] Bailee R60.0 Localized edema Assoc,ollie Nobles NP Hospitalists R29.818 Other symptoms and signs involving the nervous system R53.81 Other malaise Z87.39 Personal history of diseases of the ms sys and conn tiss Office Visit 06/11/2017 9:30a [facility] Bailee M06.4 Inflammatory STEFANIA Nobles polyarthropathy M62.461 Contracture of muscle, right lower leg M43.16 Spondylolisthesis, lumbar region Office Visit 06/09/2017 8:15a [facility] Maryjo M06.4 Inflammatory Basilio, D.O. polyarthropathy N30.01 Acute cystitis with hematuria M62.461 Contracture of muscle, right lower leg W19.xxxA Unspecified fall, initial encounter Office Visit 05/29/2017 8:45a [facility] Maryjo Martinr, N39.0 Urinary tract D.O. 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 with hematuria Hospitalists R53.1 Weakness E86.0 Dehydration Z87.39 Personal history of diseases of the ms sys and conn tiss Office Visit 05/12/2017 Rheumatology Johan M06.4 Inflammatory 11:40a Services Of Briana Cabrales M.D. polyarthropathy G43.109 Migraine with aura, not intractable, w/o status migrainosus M10.9 Gout, unspecified M18.0 Bilateral primary osteoarth of first carpometacarp joints M81.8 Other osteoporosis without current pathological fracture Z79.899 Other intermodal dispatcher (current) drug therapy Office Visit 02/11/2017 Rheumatology Johan M06.4 Inflammatory 2:40p Services Of Briana Cabrales M.D. polyarthropathy G43.109 Migraine with aura, not intractable, w/o status migrainosus M10.9 Gout, unspecified M18.0 Bilateral primary osteoarth of first carpometacarp joints Z79.899 Other intermodal dispatcher (current) drug therapy M81.8 Other osteoporosis without current pathological fracture M81.0 Age-related osteoporosis w/o current pathological fracture Office 12/27/2016 Neurohospitalist Gamaliel Cast G43.109 Migraine with aura, Visit 9:45a Clinic geeta Noguera M.D. w/o status migrainosus Office 12/11/2016 Rheumatology Johan M06.4 Inflammatory Visit 4:20p Services Of Briana Cabrales M.D. polyarthropathy M10.9 Gout, unspecified M18.0 Bilateral primary osteoarth of first carpometacarp joints Z79.899 Other intermodal dispatcher (current) drug therapy G43.001 Migraine w/o aura, not intractable, with status migrainosus M25.561 Pain in right knee M81.8 Other osteoporosis without current pathological fracture Office Visit 11/07/2016 Rheumatology Johan M06.4 Inflammatory 4:20p Services Of Briana Cabrales M.D. polyarthropathy R76.0 Raised antibody titer M10.9 Gout, unspecified Z79.899 Other intermodal dispatcher (current) drug therapy M19.012 Primary osteoarthritis, left shoulder M17.11 Unilateral primary osteoarthritis, right knee Office Visit 10/30/2016 [facility] Gamaliel Cast G43.001 Migraine w/o 2:00p Services Of Briana Noguera M.D. aura, not intractable, with status migrainosus Office Visit 08/05/2016 Orthopedic Estuardo Mora M17.11 Unilateral 11:30a Services Of Shannan Marcial MD primary osteoarthritis, right knee Office Visit 07/25/2016 Rheumatology Johan Cabrales M19.012 Primary 11:40a Services Of Briana Reyes osteoarthritis, left shoulder M81.8 Other osteoporosis without current pathological fracture M10.9 Gout, unspecified Z79.899 Other intermodal dispatcher (current) drug therapy G43.001 Migraine w/o aura, not intractable, with status migrainosus Office Visit 06/05/2016 Orthopedic Estuardo Mora M17.11 Unilateral primary 2:00p Services Of MD Aggie osteoarthritis, C.M.A. right knee Office Visit 05/30/2016 Orthopedic Estuardo Mora M19.012 Primary 1:00p Services Of MD Aggie osteoarthritis, left C.M.A. shoulder S46.012A Strain of musc/tend the rotator cuff of left shoulder, init Office Visit 05/24/2016 Rheumatology Johan M06.4 Inflammatory 10:20a Services Of Briana Cabrales M.D. 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 without current pathological fracture M71.40 Calcium deposit in bursa, unspecified site M75.52 Bursitis of left shoulder Office Visit 01/29/2016 11:20a Rheumatology Johan M10.9 Gout, unspecified Services Of Briana Cabrales M.D. N18.9 Chronic kidney disease, unspecified M81.8 Other osteoporosis without current pathological fracture M71.40 Calcium deposit in bursa, unspecified site Office Visit 12/22/2015 11:00a Rheumatology Johan M10.9 Gout, unspecified Services Of Briana Cabrales M.D. N18.9 Chronic kidney disease, unspecified M81.8 Other osteoporosis without current pathological fracture M71.40 Calcium deposit in bursa, unspecified site Z79.899 Other intermodal dispatcher (current) drug therapy M24.542 Contracture, left hand M25.512 Pain in left shoulder Office Visit 12/11/2015 2:15p Orthopedic Miles M20.022 [place]outonniere Services Of MD Marino deformity of left C.M.A. finger(s) M24.542 Contracture, left hand Office Visit 11/29/2015 11:00a Orthopedic Steve Sellers, S72.8x2D Oth fracture of Services Of Eric left femur, C.M.A. 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 polyarthropathy M10.9 Gout, unspecified Z79.899 Other intermodal dispatcher (current) drug therapy M65.30 Trigger finger, unspecified finger M24.542 Contracture, left hand M81.0 Age-related osteoporosis w/o current pathological fracture Office Visit 11/07/2015 2:30p Orthopedic Miles M24.542 Contracture, left Services Of MD Marino hand C.M.A. 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 shoulder S42.125G Nondisp fx of acromial pro, l tariqldaudie, 7thG Office Visit 10/12/2015 2:30p Orthopedic Steve Sellers, S42.125G Nondisp fx of Services Of Eric acromial pro, l C.M.AHoma martinez, 7thG M19.012 Primary osteoarthritis, left shoulder Office 12/21/2014 Neurohospitalist Gamaliel Cast G31.84 Mild cognitive Visit 10:15a Clinic Eric Noguera impairment, so stated Office 10/28/2014 Neurohospitalist Gamaliel Cast 331.83 Mild Cognitive Visit 10:45a Clinic Eric Noguera Impairment So Stated Office 09/27/2014 Neurohospitalist Gamaliel Cast 331.83 Mild Cognitive Visit 10:45a Clinic Eric Noguera Impairment So Stated Office 04/14/2014 Orthopedic Services Tor Guillaume, 923.00 Contusion Shoulder Visit 1:30p Of CBrenda Reyes Region Office 09/07/2013 [facility] Gamaliel Cast 353.0 Lesions Brachial Visit 9:30a Services Of Briana Noguera M.D. Plexus Office 07/15/2013 Orthopedic Services Alisa 714.0 Rheumatoid Visit 11:15a Of Shannan Rojas M.D. Arthritis Office 07/08/2013 Orthopedic Services Alisa 714.0 Rheumatoid Visit 10:00a Of Shannan Rojas M.D. Arthritis Office 06/23/2013 Orthopedic Services Alisa 727.03 Trigger Finger Visit 1:30p Of Briana AT Wyatt Eric Rojas Acquired Office 01/13/2013 [facility] Gamaliel Cast 353.0 Lesions Brachial Visit 1:45p Services Of Briana Noguera M.D. Plexus Office 12/21/2012 Orthopedic Services Ginny 354.9 Mononeuritis Upper Visit 10:30a Of Shannan Bennett Limb Unspec Eric Office 12/16/2012 [facility] Gamaliel Cast 953.4 Injury Spinal AT Visit 1:00p Services Of Briana Noguera M.D. Brachial Plexus Office 09/18/2012 [place] Jer Landry 526.89 Jaw Disease Other Visit 10:10a Infectious Diseases Eric Douglas Office 09/04/2012 [place] Jer Landry 526.89 Jaw Disease Other Visit 9:30a Infectious Diseases Eric Douglas Office 08/12/2012 Orthopedic Services Ginny 354.9 Mononeuritis Upper Visit 9:30a Of Shannan Bennett Limb Unspec MMilla Office 06/24/2012 Orthopedic Services Ginny 719.44 Pain Joint Hand Visit 10:15a Of Shannan Bennett M.D. Office 05/27/2012 Orthopedic Services Ginny 715.94 Osteoarthrosis Visit 1:00p Of Shannan Bennett Unspec Genlzd Or M.DHoma Localized Hand Office 04/10/2012 Orthopedic Services Niranjan Herron.4 Brachial Neuritis Visit 2:30p Of Shannan Reyes Or Radiculitis NOS 715.91 Osteoarthrosis Unspec Genlzd Or Localized Shoulder Office Visit 03/10/2012 1:15p Orthopedic Niranjan Herron.4 Brachial Neuritis Services Of Eric Or Radiculitis NOS Shannan 715.91 Osteoarthrosis Unspec Genlzd Or Localized Shoulder Office Visit 12/04/2011 [place] Trenton Olivera 794.31 Electrocardiogram 9:00a Cardiology Of Eric Kelly, (ECG) (EKG) Abnormal [facility] FACC, FASNC 786.05 Shortness Of Breath Office Visit 11/29/2011 [place] Trenton Olivera 794.31 Electrocardiogram 11:15a Cardiology Heidi Kelly M.D., (ECG) (EKG) Abnormal [facility] FACC, FASNC 786.05 Shortness Of Breath Office Visit 11/05/2011 11:30a Orthopedic Ray Herron5.91 Osteoarthrosis Services Of M.Gris Unspec Genlzd Or C.M.A. Localized Shoulder Office Visit 07/03/2010 1:00p Orthopedic Ray Herron5.91 Osteoarthrosis Services Of M.DHoma Unspec Genlzd Or C.M.A. Localized Shoulder Office Visit 06/20/2010 9:45a Orthopedic Steve Sellers 716.91 Arthropathy Unspec Services Of M.DHoma Shoulder Region C.M.AHoma 840.4 Sprains & Strains Rotator Cuff (Capsule) Office Visit 05/09/2010 8:45a Orthopedic Steve Sellers 840.4 Sprains & Services Of CHomaMCatalina Reyes Strains Rotator Cuff (Capsule) 716.91 Arthropathy Unspec Shoulder Region Office Visit 11/25/2006 10:00a Brianna Whelan 782.0 [facility] M[facility] Disturbance Office Visit 11/11/2006 3:45p Neurosurgery Derrick Whelan 723.4 [facility] M[facility] Or Radiculitis NOS Plan of Treatment Future Appointment(s):09/21/2018 2:00 pm - Johan Cabrales M.D. at [facility]04/29/2018 - Steve Sellers M.D.[id number] Other specified rheumatoid arthritis, left shoulderFollow up:Follow up: As needed OK to continue use left hand as able OK to use ice, heat left shoulder OK to use tylenol and if not effective, then use the tramadol that is ordered for pain Left hand ball squeezing and exercises are OK as well.
[2018-05-15 13:42] LABS: Urine Appearance Cloudy; Urine Bacteria Absent (Absent); Urine Bilirubin Negative (Negative); Urine Blood Negative (Negative); Urine Color Yellow; Urine Glucose Negative (Negative); Urine Ketones Negative (Negative); Urine Nitrite Negative (Negative); Urine Protein Negative (Negative); Urine Red Blood Cell Trace(0-2/hpf) (Absent); Urine Specific Gravity 1.016 (1.010-1.030); Urine Squamous Epithelial Cell Present (Absent); Urine Transitional Epithelial Present (Absent); Urine Urobilinogen Negative (Negative); Urine White Blood Cell 1+(6-10/hpf) (Absent)
[2018-05-15 14:23] LABS: ABS Basophils 0.1 10^3/ul (0-0.2); ABS Eosinophils 0.3 10^3/ul (0-0.6); ABS Lymphocytes 2.1 10^3/ul (1.0-4.8); ABS Monocytes 0.7 10^3/ul (0-0.8); ABS Neutrophils 5.2 10^3/ul (1.5-7.7); ABS Nucleated RBC 0 10^3/ul; Eosinophil % 3.8 %; Hematocrit 36 % (33-41); Lymphocyte % 25.5 %; Mean Corpuscular HGB Conc 33 g/dL (31-36); Mean Corpuscular Hemoglobin 36 pg (27-31); Mean Corpuscular Volume 107 fL (80-97); Mean Platelet Volume 7.2 fL (7.4-10.4); Nucleated Red Blood Cells % 0.2; Platelet Count 258 10^3/uL (150-450); Red Blood Count 3.37 10^6 /uL (3.70-4.87); Red Cell Distribution Width 15 % (10.5-15); White Blood Count 8.4 10^3/uL (3.5-10.8)
[2018-05-15 14:27] LABS: INR 0.89 (0.77-1.02)
[2018-05-15 14:38] LABS: Albumin 3.8 g/dL (3.2-5.2); Albumin/Globulin Ratio 1.6 (1-3); Calcium 8.7 mg/dL (8.6-10.3); EGFR African American 57.5 (>60); EGFR Non-African American 47.6 (>60); Globulin 2.4 g/dL (2-4); Magnesium 1.9 mg/dL (1.9-2.7); Total Bilirubin 0.3 mg/dL (0.2-1.0); Total Protein 6.2 g/dL (6.4-8.9)
[2018-05-15 15:00] LABS: Potassium 5.3 mmol/L (3.5-5.0)
[2018-05-15 15:03] LABS: TSH (Thyroid Stimulating Horm) 6.41 mcIU/mL (0.34-5.60)
[2018-05-15 17:31] VITALS: BP 144/81
== END 2018-05-15 17:29 | disposition home or self-care (01) ==
LOC: ED 12:01
DX: R55 Syncope and collapse (principal); E86.0 Dehydration; R41.82 Altered mental status, unspecified; R11.2 Nausea with vomiting, unspecified; Z96.611 Presence of right artificial shoulder joint; Z96.652 Presence of left artificial knee joint; Z96.642 Presence of left artificial hip joint; Z88.6 Allergy status to analgesic agent; Z88.0 Allergy status to penicillin
CPT/HCPCS: 36415; 70450; 71045; 80053; 81003; 81015; 83605; 83735; 84443; 84484; 85025; 85610; 87086; 93005; 99283

== ENCOUNTER 2018-06-18 18:14 | Inpatient (IN) | payer MEDICARE ==
--- NOTE | 2018-06-18 18:48 | ED ---
Syncope/Near Syncope - HPI Summary HPI Summary: Pt is an 82 y/o F presenting to the ED brought in by EMS for two episodes of syncope. The pt reports the first time she was sitting and watching tv in her wheelchair when she was suddenly woken up and asked what was wrong. The second time, she lost consciousness and slumped over the side of the wheelchair while watching television, and was shaken awake again. She states she woke up somewhat groggy for about 1-2 minutes at most, then returned to normal. Her baseline ambulation is that she can stand but not walk. She denies dizziness, lightheadedness, room spinning, CP, SOB, palpitations, changes in appetite, N/V, abd pain, black/bloody stools, urinary sx, edema, cough, congestion, rhinorrhea, trauma to the head, numbness, or weakness. - History Of Current Complaint Chief Complaint: EDSyncope Time Seen by Provider: 06/18/18 18:20 Hx Obtained From: Patient Onset/Duration: Sudden Onset, Lasting Minutes, Resolved Timing: Minutes Context: Unwitnessed Activity At Onset: At Rest Associated Head Trauma: No Aggravating Factor(s): Nothing Alleviating Factor(s): Other - someone woke her up - Allergies/Home Medications Allergies/Adverse Reactions: Allergies Allergy/AdvReac Type Severity Reaction Status Date / Time aspirin Allergy Rash Verified 05/15/18 12:10 Penicillins Allergy Unknown Verified 05/15/18 12:10 Reaction Details PMH/Surg Hx/FS Hx/Imm Hx Previously Healthy: Yes Endocrine/Hematology History: Reports: Hx Anemia - HX OF- NOT AT PRESENT Denies: Hx Anticoagulant Therapy, Hx Blood Disorders, Hx Diabetes Cardiovascular History: Reports: Hx Hypertension, Other Cardiovascular Problems/ Disorders - 08/2012STUBBED TOE, CLOT INRT CALF, WAS ON COUMADIN 10 DAYS, OK NOW Denies: Hx Congestive Heart Failure, Hx Pacemaker/ICD Respiratory History: Reports: Hx Chronic Obstructive Pulmonary Disease (COPD), Other Respiratory Problems/Disorders - GONG COMPLEXES ON LUNG - NO SYMPTOMS - SHOWS ON XRAY Denies: Hx Asthma, Hx Lung Cancer, Hx Pulmonary Embolism, Hx Seasonal Allergies GI History: Reports: Hx Irritable Bowel, Other GI Disorders - FREQUENT BOWEL MOVEMENTS, RELATES TO DIET History: Reports: Other Problems/Disorders - 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 Denies: Hx Dialysis, Hx Renal Disease Musculoskeletal History: Reports: Hx Arthritis - Rheumatoid and Osteo, Hx Rheumatoid Arthritis, Hx Osteoporosis - OA, Other Musculoskeletal History - RIGHT SHOULDER REPLACEMENT-11/2011 Denies: Hx Back Problems Sensory History: Reports: Hx Cataracts - lt catatracts, Hx Contacts or Glasses Denies: Hx Eye Injury, Hx Glaucoma, Hx Legally Blind, Hx Macular Degeneration , Hx Hearing Aid, Hx Hearing Problem Opthamlomology History: Reports: Hx Cataracts - lt catatracts, Hx Contacts or Glasses Denies: Hx Eye Injury, Hx Glaucoma, Hx Legally Blind, Hx Macular Degeneration Neurological History: Reports: Hx Headaches, Hx Migraine, Hx Nerve Disease - Nerve pain Denies: Hx Dementia, Hx Seizures Psychiatric History: Denies: Hx Panic Disorder - Cancer History Cancer Type, 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 Hx Chemotherapy: No Hx Radiation Therapy: No - Surgical History Surgery Procedure, Year, and Place: 11/2011-RIGHT SHOULDER REPLACEMENT-[facility] [place] 2007 LEFT KNEE REPLACEMENT-[facility] [place] 12/14/2007 LEFT KNEE ARTHROSCOPY, [facility] [place] 12/18/2007 LEFT KNEE INCISION AND DRAINAGE, ARTHROSCOPIC WASHOUT, [id number] CARPAL TUNNEL RELEASE BILATERALLY-[facility] [place] BUNIONECTOMY BILATERAL-[facility] [place] TONSILLECTOMY & ADENOIDECTOMY 2010 CLOSED REDUCTION RIGHT WRIST, [facility] [place] BILATERAL EYE CATARACT EXCISION WITH IOL IMPLANT, [facility] [place] 2014 SURGICAL REMOVAL OF BILATERAL MANDIBULAR TORUS, [facility] [place] 2015 LEFT HAND KNUCKLES REPLACEMENT, [place]. LEFT HIP REPLACMENT 2016 Hx Anesthesia Reactions: No - Immunization History Date of Tetanus Vaccine: Unk Date of Influenza Vaccine: Fall 2014 Infectious Disease History: No Infectious Disease History: Denies: Hx Clostridium Difficile, Hx Hepatitis, Hx of Known/Suspected MRSA, Hx Shingles, Hx Tuberculosis, Hx Known/Suspected VRE, Hx Known/Suspected VRSA, Traveled Outside the [place] in Last 30 Days - Family History Known Family History: Negative: Diabetes - Social History Alcohol Use: None Alcohol Amount: 1 GLASS OF WINE EACH EVENING Hx Substance Use: No Substance Use Type: Reports: None Hx Tobacco Use: No Smoking Status (MU): Never Smoked Tobacco Have You Smoked in the Last Year: No Review of Systems Negative: Other - change in appetite Negative: Nasal Discharge Negative: Palpitations, Chest Pain Negative: Shortness Of Breath Negative: Abdominal Pain, Vomiting, Nausea, Other - black/bloody stools Positive: no symptoms reported Negative: Edema Neurological: Negative - dizziness, lightheadedness Positive: Syncope. Negative: Weakness, Numbness All Other Systems Reviewed And Are Negative: Yes Physical Exam - Summary Physical Exam Summary: Constitutional: Well-developed, Well-nourished, Alert. (-) Distressed Skin: Warm, Dry. Chronic skin changes in the upper and lower extremities with some small excoriations on the lower extremity. There is some turgor that could be age related, but there could be a component of dehydration. HENT: Normocephalic; Atraumatic Eyes: Conjunctiva normal Neck: Musculoskeletal ROM normal neck. (-) JVD, (-) Stridor, (-) Tracheal deviation Cardio: Rhythm regular, rate normal, Heart sounds normal; Intact distal pulses; The pedal pulses are 2+ and symmetric. Radial pulses are 2+ and symmetric. Pulmonary/Chest wall: Effort normal. (-) Respiratory distress, (-) Wheezes, Very faint bibasilar rales, more obvious on inhalation than expiration. No secondary signs of CHF. Abd: Soft, (-) tenderness, (-) Distension, (-) Guarding, (-) Rebound Musculoskeletal: (-) Edema, significant amount of arthritic dz in hands and extremities. Neuro: Alert, Oriented x3 Psych: Mood and affect Normal Triage Information Reviewed: Yes Vital Signs On Initial Exam: Initial Vitals Temp Pulse Resp BP Pulse Ox 98.4 F 72 16 159/96 97 06/18/18 18:23 06/18/18 18:23 06/18/18 18:23 06/18/18 18:23 06/18/18 18:23 Vital Signs Reviewed: Yes Diagnostics - Vital Signs Vital Signs Temp Pulse Resp BP Pulse Ox 06/18/18 18:23 98.4 F 72 16 159/96 97 - Laboratory Result Diagrams: 06/18/18 19:02 Lab Statement: Any lab studies that have been ordered have been reviewed, and results considered in the medical decision making process. - EKG 1851 Cardiac Rate: NL - 66bpm EKG Rhythm: Sinus Rhythm ST Segment: Normal Ectopy: None Summary of EKG Findings: An EKG at 1851 shows NSR of 66bpm, 1st deg. AVB, Q waves inferiorly and anteriorly, no STEMI, and no prior. Course/Dx Course Of Treatment: Pt is an 82 y/o F presenting to the ED brought in by EMS for two episodes of syncope. She denies dizziness, lightheadedness, room spinning, CP, SOB, palpitations, changes in appetite, N/V, abd pain, black/ bloody stools, urinary sx, edema, cough, congestion, rhinorrhea, trauma to the head, numbness, or weakness. Upon exam, it is noted that there are chronic skin changes in the upper and lower extremities with some small excoriations on the lower extremity. There is some turgor that could be age related, but there could be a component of dehydration. There is also a significant amount of arthritic dz in hands/extremities. There are very faint bibasilar rales, more obvious on inhalation than expiration. No secondary signs of CHF. A brain CT, CXR, EKG, and lab work have been ordered for the pt. An EKG at 1852 shows NSR of 66bpm, 1st deg. AVB, Q waves inferiorly and anteriorly, no STEMI, and no prior. She will be signed out to Jeremiah Lopez MD., upon shift change at 1900. - Diagnoses Provider Diagnoses: Syncope Discharge - Sign-Out/Discharge Documenting (check all that apply): Sign-Out Patient Signing out patient TO: Jeremiah Lopez - Discharge Plan Condition: Stable Referrals: Veronica Levin MD [Primary Care Provider] - - Billing Disposition and Condition Condition: STABLE - Attestation Statements Document Initiated by Scribe: Yes Documenting Scribe: Poppy Leal Provider For Whom Geena is Documenting (Include Credential): Rene Jerome MD. Scribe Attestation: Poppy Cope, scribed for Rene Jerome MD. on 06/18/18 at 1915. Scribe Documentation Reviewed: Yes Provider Attestation: The documentation as recorded by the Poppy hightower accurately reflects the service I personally performed and the decisions made by me, Rene Jerome MD. Status of Scribe Document: Viewed
[2018-06-18] MEDS ORDERED: Lactated Ringers 1000 ML Bag* 500 ML IV ONE (19:00)
--- OUTSIDE RECORDS SUMMARY | 2018-06-18 19:00 | XMS REPORT | Continuity of Care Document ---
:1935 External Reference #:[id number] Author Name Lesa Blevins Care Team Providers Name Role Phone Veronica Baca MD Primary Care Physician Unavailable Payers Date Identification Numbers Payment Provider Subscriber Effective: 2000 Policy Number: [id number] Medicare [place] PayID: [id number] [address] [place] [address] Policy Number: [id number] [facility] [place] PayID: [id number] [address] [place] [address] Advance Directives Description No Information Available Problems [...] Active Onset: 06/12/2017 Urinary tract infectious disease Maryjo Richmond D.O. Active Onset: 06/12/2017 Essential hypertension Maryjo Richmond D.O. Active Onset: 06/12/2017 Chondrocalcinosis of knee joint Maryjo Richmond D.O. Active Onset: 06/12/2017 Gout Bailee Nobles STEFANIA Active Onset: 06/12/2017 Knee pain Bailee Nobles, TRAIN CONDUCTOR Active Onset: 06/12/2017 Malaise and fatigue Bailee ParekhSTEFANIA rubio Active Onset: 06/12/2017 Dehydration Ashley Bang, TRAIN CONDUCTOR Active Onset: 06/12/2017 Disorder of musculoskeletal Ashley Bang, TRAIN CONDUCTOR Active system Onset: 06/12/2017 Migraine with typical [...] joint of shoulder Micha Rutherford, Active region RPA-C Onset: 06/12/2017 Electrocardiogram abnormal Trenton Kelly M.D., Active FAC, FASFABI Onset: 06/12/2017 Dyspnea Trenton Kelly M.D., Active FACBeata, FASFABI Onset: 06/12/2017 Strain of rotator cuff capsule Steve Sellers M.D. Active Onset: 06/12/2017 Skin sensation disturbance Derrick Coffman M.D. Active Onset: 06/02/2018 Effusion of joint of shoulder Elsa Dodson MD Active region Onset: 02/28/2016 Rheumatoid arthritis Miles Pichardo MD [...] Strength Qnty SIG Indications Ordering Provider Wilfredo 07/30 Active Solution 60mg/ml 60mg 60 mg sc q6mon Eric Cabrales Butalbital/Acetamin 06/12 Active Tablets 50-325-40 30tab 1 tab PO Bailee ophen/Caffeine /2017 mg s qd STEFANIA Nobles Lexapro 06/12 Active Tablets 5mg 30tab 1 by mouth F33.0 s every day STEFANIA Nobles Prednisone 06/12 Active Tablets 5mg 28tab 1 tab po s qd as [place], needed for TRAIN CONDUCTOR gout flare (she has not take this recently) Acetaminophen 06/12 Active Tablets 325mg 60tab 2 tablets s by mouth [place], every 6 TRAIN CONDUCTOR hours as needed for pain/fever [facility] Vitamin [...] HCL Active Tablets 10mg 1 tablet Unknown / by mouth q8 hours as needed muscle spasms Vitamin B Complex Active Tablets 1 by mouth Unknown /0000 every day Turmeric Active Capsules 450mg Unknown /0000 Colace 06/12 Hx Capsules 100mg 90cap 2 caps by K59.00 s mouth 2 Giuliano, - times a TRAIN CONDUCTOR Cyclobenzaprine HCL 06/12 Hx Tablets 10mg 30tab 1 tablet R25.2 s by mouth Giuliano, - bid TRAIN CONDUCTOR 08/21 Ferrous Sulfate 06/12 Hx Tablets 325(65Fe) 90tab 1 by mouth Bailee mg s every day Iglesiaton, - TRAIN CONDUCTOR 04/28 Omeprazole 06/12 Hx Capsules 20mg 90cap [address] s every day [facility] - TRAIN CONDUCTOR 04/28 Tramadol HCL 06/12 Hx Tablets 50mg [...] 1 tab by Miles kim s mouth Marino, - every 6 MD 05/28 hours needed [...] Markell, - every 3 M.D. 06/01 hours pain Tylenol/Codeine #3 11/14 Hx Tablets 300-30mg 60tab 1-2 po q Tor s 4-6 hr prn Markell, - pain M.D. 12/16 Clindamycin HCL Hx Capsules 75mg tid Unknown / - 12/16 Estradiol 00 Hx Tablets 0.5mg 30tab 1/2 po qod Unknown /0000 s - 12/16 Ramipril Hx Capsules 10mg 90cap 1 po qd Unknown / s - 02/19 Butalbital/Acetamin Hx Tablets 50-325-40 14tab Take 1 tab shun Cabrales/Caffeine /0000 mg s daily as Johan, - needed for 07/24 pain Warfarin Sodium Hx Tablets 5mg Unknown /0000 - 05/31 Chlorhexidine 00/ Hx Solution 0.12% Unknown Gluconate Oral /0000 Rinse - 09/24 Multi For Her 50+ 00/ Hx Capsules 1 po qd Unknown / - 11/23 B-12 1000 / Hx Tablets 1000-400m 1 po daily Unknown /0000 Sub cg - 12/20 Neurontin /00 Hx Unknown / - 09/24 Iron / Hx Tablets 325(65Fe) 1 by mouth Unknown /0000 mg qod - 11/23 Ciprofloxacin HCL Hx Tablets 250mg Unknown / - 10/25 Methylprednisolone Hx Tablets 4mg po as Unknown (Nicholas) /0000 directed - 11/24 Minocycline HCL Hx Capsules 100mg 1 cap po Unknown /0000 bid - 11/24 Escitalopram Hx Tablets 5mg once daily Unknown Oxalate / - 06/12 Prevagen Hx Capsules 10mg Unknown /0000 - 06/12 Hydroxychloroquine Hx Tablets 200mg 90tab take one Johan Sulfate /0000 s tablet by Samra, - mouth M.DHoma 12/22 Colchicine Hx Capsules 0.6mg take one Unknown /0000 by mouth - every day 06/12 as needed /2017 for gout flare up Baclofen Hx Tablets 5mg 1 tab 2x a Unknown /0000 day - 11/23 Plaquenil Hx Tablets 200mg 1 by mouth Unknown /0000 every day - 08/21 Prilosec OTC Hx Tablets 20mg 1 by mouth Unknown /0000 DR every day - 12/22 Vitamin B-12 Hx Tablets 500mcg 1 by mouth Unknown Natural /0000 every day - 06/22 Vitamin B12 00/00 Hx Tablets 1000mcg 1 by mouth Unknown /0000 ER every day - 04/28 Medications Administered in Office Medication Date Status Form Strength Qnty SIG Indications Ordering Provider Depomedrol 40MG 04/29/ Injection Steve Sellers, 2019 M.D. Depomedrol 40MG 11/24/ Administered Injection Steve Sellers, 2017 M.DHoma Prolia 02/11/ Administered Injection Johan Injection, 2017 Samra Denosumab, 1MG M.D. Synvisc Or 11/20/ Administered Injection Johan Synvisc-One 2017 Samra, Injection 1 MG M.D. Prolia 07/25/ Administered Injection Johan Injection, 2017 Rad Cabralesosumab, 1MG M.D. Depomedrol 40MG 06/05/ Administered Injection Estuardo F 2016 MD Aggie Triamcinolone 02/19/ Administered Injection Johan (Kenalog) 2015 Eric Cabrales Prolia 12/21/ Administered Injection Johan Injection, 2016 Rad Cabralesosumab, 1MG M.D. Depomedrol 40MG 10/11/ Administered Injection Steve Sellers, 2015 M.D. Depomedrol 80MG 06/23/ Administered Injection Alisa 2013 Eric Rojas Technetium TC 12/01/ Administered Injection Trenton Olivera 99M 2011 Maria Guadalupe Kelly M.D., FACC, Per Unit Dose FASNC Up To 40 Millicuries Depomedrol 80MG 05/09/ Administered Injection Steve Sellers, 2010 MMilla Immunizations Description No Information Available Vital Signs Date Vital Result Comment 06/02/2018 2:36pm Heart Rate 60 /min BP Systolic 142 mmHg BP Diastolic 62 mmHg Respiratory Rate 16 /min Body Temperature 97.8 F Pain Level 5 04/29/2018 1:48pm Height 64 inches 5'4" Weight [...] Result H/L Range Note Basic Metabolic 03/05/2018 [facility] Sodium 139 mmol/L N 135- [address] [place] [address] [phone] Potassium 5.0 mmol/L N 3.5-5.0 Chloride 105 mmol/L N 101-111 Co2 Carbon Dioxide 28 mmol/L N 22-32 Anion Gap 6 mmol/L N 2-11 Glucose 87 mg/dL N 70-100 Blood Urea Nitrogen 24 mg/dL N 6-24 Creatinine 0.87 mg/dL N 0.51-0.95 BUN/Creatinine Ratio 27.6 High 8-20 Calcium 9.6 mg/dL N 8.6-10.3 Egfr Non- 62.3 >60 Egfr 75.4 >60 1 Laboratory test 08/28/2017 [facility] Uric Acid 5.8 mg/dL N 2.3-6.6 2, 3 finding [address] [place] [address] [phone] Laboratory test 08/28/2017 [facility] C Reactive 7.61 mg/L N < 8.01 4 finding [address] [facility] [place] [address] [phone] Creatine Kinase(CK) 104 U/L N 10-223 5 Vitamin D Total 25(Oh) 43.5 ng/mL N 20-50 6 Erythrocyte Sed Rate 15 mm/Hr N 0-40 7 Vitamin D, 1,25 Dihydroxy 49 pg/mL 18-78 8 Connective Tissue 12/13/2016 [facility] Anti-Nuclear Antibody 0.2 U N 9 Panel [address] [place] [address] [phone] Cyclic Citrullinated Peptide <15.6 U N 10 Interpretation See Comment N 11 Laboratory test 12/13/2016 [facility] Rheumatoid Factor <15 IU/ mL N <15 12 finding [address] [place] [address] [phone] Cyclic Citrullinated Pep Igg TNP N () 13 Uric Acid 6.7 mg/dL High 2.3-6.6 14 CBC Auto Diff 12/13/2016 [facility] White Blood 8.3 10^3/uL N 3.5-10.[address] [place] [address] [phone] Red Blood Count 3.12 10^6/uL Low 4.0-5.4 [...] % 0 N Comp Metabolic Panel 12/13/2016 [facility] Sodium 134 mmol/L N 133-[address] [place] [address] [phone] Potassium 4.9 mmol/L N 3.5-5.0 Chloride 99 [...] 74.4 N >60 15 Laboratory test 12/13/2016 [facility] C Reactive 3.11 mg/L N < 5.00 [address] [place] [address] [phone] Erythrocyte Sed Rate 10 mm/Hr N 0-40 17 Laboratory test 06/25/2016 [facility] Erythrocyte Sed 10 mm/Hr N 0-40 [address] [place] [address] [phone] C Reactive Protein 2.33 mg/L N < 5.00 19 Uric Acid 4.8 mg/dL N 2.3-6.6 20 CBC Auto Diff 06/25/2016 [facility] White Blood 6.8 10^3/uL N 3.5-10.[address] [place] [address] [phone] Red Blood Count 3.46 10^6/uL Low 4.0-5.4 [...] % 0 N Comp Metabolic Panel 06/25/2016 [facility] Sodium 138 mmol/L N 133-[address] [place] [address] [phone] Potassium 4.9 mmol/L N 3.5-5.0 Chloride 100 [...] 67.1 N >60 22 Laboratory test 01/11/2016 [facility] Surgical SEE RESULT 23, [address] Pathology BELOW [place], [place] [id number] [phone] Laboratory test 11/24/2015 [facility] Body Fluid (SEE NOTE) N 25, [address] [place] [address] [phone] Body Fluid Cell 11/24/2015 [facility] Body Fluid Synovial N Count [address] Source Fluid [place], [place] [id number] [phone] Body Fluid Appearance Cloudy N Body Fluid Color Germania N Body Fluid Volume 3 mL N Body Fluid Neutrophils 3 % N Body Fluid Lymph 55 % N Body Fluid Maries 42 % N Body Fluid Total Cells Counted 100 N Body Fluid WBC 1008 /mcL N 27 Body Fluid RBC 79815 /mcL N Fluid Reviewed By MD (SEE NOTE) N 28 Laboratory test 11/24/2015 [facility] Gram Stain <pending> finding [address] [place] [address] [phone] Body Fluid C&S 11/24/2015 [facility] Body Fluid SEE RESULT [address] Cult [place] [address] Stain [phone] Laboratory test 11/24/2015 [facility] MRSA/S. SEE RESULT [address] aureus [place] [address] PCR [phone] Laboratory test 11/24/2015 [facility] Body Fluid <pending> finding [address] [place] [address] [phone] Laboratory test 11/09/2015 [facility] C Reactive 36.03 mg/L High < [address] Protein 5.00 [place] [address] [phone] Cyclic Citrullinated Pep Igg <15.6 U N 32 Rheumatoid Factor <15 IU/mL N <15 33 Uric Acid 9.7 mg/dL High 2.3-6.6 34 CBC Auto Diff 11/09/2015 [facility] White Blood 6.9 10^3/uL N 3.5-10.[address] [place] [address] [phone] Red Blood Count 3.07 10^6/uL Low 4.0-5.4 [...] Cells % 0 N Comp Metabolic Panel 11/09/2015 [facility] Sodium 133 mmol/L N 133-[address] [place] [address] [phone] Potassium 5.1 mmol/L High 3.5-5.0 Chloride 100 [...] 46.8 N >60 Egfr 60.2 N >60 36 Anca AB Ser If 11/09/2015 [facility] C-Anca Negative N Negative [address] [place] [address] [phone] P-Anca Positive N Negative 37 Laboratory test 11/09/2015 [facility] Anti Nuclear Antibody 0.3 U N 38 finding [address] [place] [address] [phone] Laboratory test 11/09/2015 [facility] Myeloperoxidase AB <0.2 U N 39 finding [address] [place] [address] [phone] Proteinase 3 <0.2 U N 40 Laboratory test 09/30/2014 [facility] Vitamin B12 245 pg/mL N 180-914 41 finding [address] [place] [address] [phone] TSH (Thyroid Stim Horm) 2.43 ?IU/mL N [...] 5 Kidney failure <15 (or dialysis) 2 [id number] 3 [id number] 4 [id number] 5 [id number] 6 [id number] 7 [id number] 8 ADDITIONAL INFORMATION This test was developed and its performance characteristics determined by [facility] in a manner consistent with CLIA requirements. This test has not been cleared or approved by the U.S. Food and Drug Administration. Test Performed by: [facility] [address] [place] [address] 9 REFERENCE VALUE <=1.0 (Negative) 10 REFERENCE VALUE <20.0 (Negative) 11 Tests for antibodies to dsDNA and AMBER antigens are not performed automatically unless the RYLIE result is > or= 3.0 U. Studies performed at [facility] indicate that positive RYLIE results <3.0 U are rarely accompanied by positive second order tests. Test Performed by: [facility] [address] [place] [address] 12 Test Performed by: [facility] [address] [place] [address] 13 Cancelled due to duplicate test on this order Test Performed by: [place] [address] 14 Please check labs this week 15 [...] 5 Kidney failure <15 (or dialysis) 23 [id number] 24 SEE RESULT BELOW Name: REBA GRULLON : [address]: Miles Pichardo MD Acct: [id number] Unit: [id number] AGE: 80 Location: [facility] Re01/11/16 SEX: F Status: REG SDC SPEC: [id number] SINTIA: 01/11/16-[address] [facility] [address]: Miles Pichardo MD REQ: [id number] RECD: 01/12/16-1026 STATUS: SOUT _ ORDERED: LEVEL I COMMENTS: [id number] FINAL DIAGNOSIS Index, long and ring fingers, [...] performed at Main Lab DEPARTMENT OF PATHOLOGY, [address] [place] [address] Konrad Looney M.D. Director [facility] # [id number] 25 [id number] 26 Calcium pyrophosphate 27 -- REFERENCE VALUE -- Synovial: <150/mcL Peritoneal: <500/mcL Pleural: <500/mcL Pericardial: <500/mcL 28 Predominantly macrophages. No evidence of an acute inflammatory response. No evidence of malignancy. Reviewed by Janey Reynaga MD 29 SEE RESULT BELOW Name: REBA GRULLON : [address]: Johan Cabrales MD Acct: [id number] Unit: [id number] AGE: 80 Location: [facility] Re11/24/15 SEX: F Status: REG REF SPEC: [id number] SINTIA: 11/24/15-[address] [facility] [address]: Johan Cabrales MD REQ: [id number] RECD: 11/24/15-1752 STATUS: COMP _ SOURCE: BODY FLUID SPDESC: ORDERED: JUAN R Breen/BULMARO COMMENTS: [id number] Procedure Result Reported Site Body Fluid Gram Stain Final 11/25/15- 728 ML 1+ Neutrophils 1+ Nucleated Cells No Organisms Seen Preparation By Cytospin Smear Body Fluid Culture Final 11/28/15- 810 ML No Growth Day 4 * ML - MAIN LAB ([facility]) . END OF REPORT * ML=Testing performed at Main Lab DEPARTMENT OF PATHOLOGY, [address] [place] [address] Konrad Looney M.D. Director [facility] # [id number] 30 SEE RESULT BELOW Name: REBA GRULLON : [address]: Johan Cabrales MD Acct: [id number] Unit: [id number] AGE: 80 Location: [facility] Re11/24/15 SEX: F Status: REG REF SPEC: [id number] SINTIA: 11/24/15-[address]: Johan Cabrales MD REQ: [id number] RECD: 11/24/15516 STATUS: COMP _ SOURCE: BODY FLUID SPDESC:NOS ORDERED: MRSA/SA SSTI Procedure Result Reported Site MRSA/S. aureus SSTI PCR Final 11/24/15- 2140 ML Organism 1 MRSA NEGATIVE Organism 2 S.AUREUS NEGATIVE * ML - MAIN LAB ([facility]) . END OF REPORT * ML=Testing performed at Main Lab DEPARTMENT OF PATHOLOGY, [address] [place] [address] Konrad Looney M.D. Director [facility] # [id number] 31 Acute inflammation: >10.00 32 REFERENCE VALUE <20.0 (Negative) Test Performed by: [place] [address] [employer] Manager Architect: Dewayne Pennington II, M.D., Ph.D. 33 Test Performed by: [place] [address] [employer] Manager Architect: Dewayne Pennington II, M.D., Ph.D. 34 Please check labs today 35 Consistent with previous results on 09/11/15. 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 Suggest further testing for anti-myeloperoxidase (anti-MPO) antibodies, if clinically indicated. ADDITIONAL INFORMATION This test was developed and its performance characteristics determined by [facility] in a manner consistent with CLIA requirements. This test has not been cleared or approved by the U.S. Food and Drug Administration. Test Performed by: [place] [address] [employer] Manager Architect: Dewayne G. Morice, II, M.D., Ph.D. 38 REFERENCE VALUE <=1.0 (Negative) Test Performed by: [place] [address] [employer] Manager Architect: Dewayne Pennington II, M.D., Ph.D. 39 REFERENCE VALUE <0.4 (Negative) Test Performed by: [place] [address] [employer] Manager Architect: Dewayne Pennington II, M.D., Ph.D. 40 REFERENCE VALUE <0.4 (Negative) Test Performed by: [place] [address] [employer] Manager Architect: Dewayne Pennington II, M.D., Ph.D. 41 Normal Range 180 to 914 Indeterminate Range 145 to 180 Deficient Range <145 Procedures Date Code Description Status 04/29/2018 Inject/Drain Joint/Bursa Major W/O US Completed 11/24/2017 Inject/Drain Joint/Bursa Major W/O US Completed 02/11/2017 88789 Admin Of Inj Completed 11/20/201643179 Inject/Drain Joint/Bursa Major W/O US Completed 07/25/2016 28201 Chemotherpy Admin Subcutaneous/Im Non-Hormonal Completed Anti-Neoplastic 06/05/2016 Inject/Drain Joint/Bursa Major W/O US Completed 02/20/2016 Inject/Drain Joint/Bursa Major W/O US Completed 01/11/2016 26740 Remove Implant From Finger/Hand Completed 01/11/2016 11664 Remove Implant From Finger/Hand Completed 01/11/2016 75973 Remove Implant From Finger/Hand Completed 01/11/2016 49474 Tenolysis Extensor Tendon Hand Or Finger Completed 01/11/2016 24190 Tenolysis Extensor Tendon Hand Or Finger Completed 01/11/2016 71630 Tenolysis Extensor Tendon Hand Or Finger Completed 01/11/2016 44647 Tenotomy Extensor Hand Or Finger Open Completed 01/11/2016 00873 Arthroplasty Metacarpophalangeal Joint W/Prosthetic Completed Implant 01/11/2016 31395 Arthroplasty Metacarpophalangeal Joint W/Prosthetic Completed Implant 01/11/2016 61829 Arthroplasty Metacarpophalangeal Joint W/Prosthetic Completed Implant 01/11/2016 33516 Arthroplasty Metacarpophalangeal Joint W/Prosthetic Completed Implant 01/11/2016 04801 Arthroplasty Metacarpophalangeal Joint W/Prosthetic Completed Implant 01/11/2016 91574 Arthroplasty Metacarpophalangeal Joint W/Prosthetic Completed Implant 01/11/2016 75846 Arthrodesis IP JT W/Wo Fixation Completed 12/22/2015 90626 Chemotherpy Admin Subcutaneous/Im Non-Hormonal Completed Anti-Neoplastic 11/24/2015 24721 Inject/Drain Joint/Bursa Major W/O US Completed 10/12/2015 31307 Inject/Drain Joint/Bursa Major W/O US Completed 07/08/2013 74663 Rad Exam; Hand Comp Completed 06/23/2013 12047 Inject Tendon Sheath Or Ligament Aponeurosis Eg Plantar Completed Fascia 03/10/2012 46053 Rad Shoulder Comp, Min. 2 Views Completed 02/14/2012 60336 Rad Exam; Hand Comp Completed 12/12/2011 13899 Rad Shoulder Comp, Min. 2 Views Completed 12/06/2011 79012 Arthroplasty,Total Shoulder Replacement (TSR) Completed 12/06/2011 89404 Arthroplasty,Total Shoulder Replacement (TSR) Completed 12/03/2011 68799 ECHO Transthoracic, Real-Time 2D With Doppler And Color Completed Flow 12/02/2011 14402 Stress Test Completed 12/02/2011 13404 Myocardial Perfusion Imaging Tomographic (Spect) Completed Multiple Studies 11/29/2011 52845 EKG Tracing & Interpretation Completed 11/22/2011 39668 Rad Shoulder Comp, Min. 2 Views Completed 09/26/2011 [id number] Mammogram Completed 05/09/2010 86050 Rad Shoulder Comp, Min. 2 Views Completed 05/09/2010 61330 Inject/Drain Joint/Bursa Major W/O US Completed Encounters Type Date Location Provider Dx Diagnosis Office Visit 04/29/2018 Orthopedic Steve Sellers M.D. M25.412 Effusion, left 2:15p Services Of [facility] shoulder M12.812 Oth specific arthropathies, NEC, left shoulder Office Visit 12/22/2017 Rheumatology Johan M48.03 Spinal stenosis, 11:00a Services Of Briana Cabrales M.D. 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 polyarthropathy M10.9 Gout, unspecified M62.81 Muscle weakness (generalized) M81.8 Other osteoporosis without current pathological fracture Office 06/24/2017 Neurohospitalist Gamaliel Cast G43.009 Migraine w/o Visit 9:45a Tracey Noguera M.D. aura, not intractable, w/o status migrainosus M48.03 Spinal stenosis, cervicothoracic region Office Visit 06/20/2017 11:00a [facility] M48.03 Spinal stenosis, MD Azeem cervicothoracic region M48.07 Spinal stenosis, lumbosacral region G43.001 Migraine w/o aura, not intractable, with status migrainosus R53.1 Weakness Office Visit 06/19/2017 9:49a [facility] Ana Laura R29.818 Other symptoms Assoc,pc Landy, DO and signs Hospitalists involving the nervous system R60.0 Localized edema R53.81 Other malaise Z87.39 Personal history of diseases of the ms sys and conn tiss Office 06/17/2017 Neurohospitalist Lashaun M48.03 Spinal stenosis, Visit 7:00a Clinic MD Gonsalo cervicothoracic region M62.81 Muscle weakness (generalized) Office Visit 06/17/2017 Neurosurgery Kelsey Arora M62.81 Muscle weakness 7:00a Services Of Briana PA-C (generalized) M48.03 Spinal stenosis, cervicothoracic region M48.07 Spinal stenosis, lumbosacral region Office Visit 06/16/2017 9:46a [facility] R60.0 Localized edema Assoc,ollie Nobles, STEFANIA Hospitalists R29.818 Other symptoms and signs involving the nervous system R53.81 Other malaise Z87.39 Personal history of diseases of the ms sys and conn tiss Office Visit 06/11/2017 9:30a [facility] Bailee M06.4 Inflammatory Giuliano, TRAIN CONDUCTOR polyarthropathy M62.461 Contracture of muscle, right lower leg M43.16 Spondylolisthesis, lumbar region Office Visit 06/09/2017 8:15a [facility] Maryjo M06.4 Inflammatory Basilio, D.O. polyarthropathy N30.01 Acute cystitis with hematuria M62.461 Contracture of muscle, right lower leg W19.xxxA Unspecified fall, initial encounter Office Visit 05/29/2017 8:45a [facility] Maryjo Richmond, N39.0 Urinary tract D.O. infection, site not specified I10 Essential (primary) hypertension M06.4 Inflammatory polyarthropathy M11.269 Other chondrocalcinosis, unspecified knee [facility]27[facility]2017 [facility] Inflammatory Iglesiaton, TRAIN CONDUCTOR polyarthropathy M10.9 Gout, unspecified M25.561 Pain in right knee R53.1 Weakness Office Visit 05/21/2017 10:34a [facility] Ashley N30.01 Acute cystitis Assoc,ollie Bang, with hematuria Hospitalists TRAIN CONDUCTOR R53.1 Weakness E86.0 Dehydration Z87.39 Personal history of diseases of the ms sys and conn tiss Office Visit 05/18/2017 [facility] Piter Dodd N30.01 Acute cystitis 10:01a Assocollie II, M.D. with hematuria Hospitalists R53.1 Weakness [...] osteoporosis without current pathological fracture Z79.899 Other fpc (current) drug therapy Office Visit 02/11/2017 Rheumatology Johan M06.4 Inflammatory 2:40p Services Of Briana Cabrales M.D. 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 w/o status migrainosus Office 12/11/2016 Rheumatology Johan M06.4 Inflammatory Visit 4:20p Services Of Briana Cabrales M.D. 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 without current pathological fracture M71.40 Calcium deposit in bursa, unspecified site M75.52 Bursitis of left shoulder Office Visit 01/29/2016 11:20a Rheumatology Johan Marsh0.9 Gout, unspecified Services Of Briana Cabrales M.D. N18.9 Chronic kidney disease, unspecified M81.8 Other osteoporosis without current pathological fracture M71.40 Calcium deposit in bursa, unspecified site Office Visit 12/22/2015 11:00a Rheumatology Johan M10.9 Gout, unspecified Services Of Briana Cabrales M.D. N18.9 Chronic kidney disease, unspecified M81.8 Other osteoporosis without current pathological fracture M71.40 Calcium deposit in bursa, unspecified site Z79.899 Other fpc (current) drug therapy M24.542 Contracture, left hand [...] Inflammatory polyarthropathy M10.9 Gout, unspecified Z79.899 Other fpc (current) drug therapy R76.0 Raised antibody titer R22.32 Localized swelling, mass and lump, left upper limb Office Visit 11/09/2015 Rheumatology Johan M06.4 Inflammatory 10:00a Services Of Briana Cabrales M.D. polyarthropathy M10.9 Gout, unspecified Z79.899 Other fpc (current) drug therapy M65.30 Trigger finger, unspecified finger M24.542 Contracture, left hand M81.0 Age-related osteoporosis w/o current pathological fracture Office Visit 11/07/2015 2:30p Orthopedic Miles M24.542 Contracture, left Services Of MD Marino hand C.M.A. 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 shoulder S42.125G Nondisp fx of acromial pro, l juan, 7thG Office Visit 10/12/2015 2:30p Orthopedic Steve Sellers S42.125G Nondisp fx of Services Of Eric acromial pro, l C.M.A. shldr, 7thG M19.012 Primary osteoarthritis, left shoulder Office [...] Guillaume, 923.00 Contusion Shoulder Visit 1:30p Of Shannan Reyes Region Office 09/07/2013 [facility] Gamaliel Cast 353.0 Lesions Brachial Visit 9:30a Services Of Briana Noguera M.D. Plexus Office 07/15/2013 [facility] Services Alisa 714.0 Rheumatoid Visit 11:15a Of Shannan Rojas M.D. Arthritis Office 07/08/2013 [facility] Alisa 714.0 Rheumatoid Visit 10:00a Of Shannan Rojas M.D. Arthritis Office 06/23/2013 [facility] Alisa 727.03 Trigger Finger Visit 1:30p Of Briana BLOOD [place] Eric Rojas Acquired Office 01/13/2013 [facility] Gamaliel Cast 353.0 Lesions Brachial Visit 1:45p Services Of Brinaa Noguera M.D. Plexus Office 12/21/2012 [facility] Ginny 354.9 Mononeuritis Upper Visit 10:30a Of Jamal Sosa M.D. Office 12/16/2012 [place] Kali Cast 953.4 Injury Spinal AT Visit 1:00p Services Of Briana Noguera M.D. Brachial Plexus Office 09/18/2012 [place] Jer Landry 526.89 Jaw Disease Other Visit 10:10a Infectious Diseases Eric Douglas Office 09/04/2012 [place] Jer Landry 526.89 Jaw Disease Other Visit 9:30a Infectious Diseases Eric Douglas Office 08/12/2012 [facility] Ginny 354.9 Mononeuritis Upper Visit 9:30a Of Jamal Sosa M.D. Office 06/24/2012 [facility] Ginny 719.44 Pain Joint Hand Visit 10:15a Of Shannan Bennett M.D. Office 05/27/2012 [facility] Ginny 715.94 Osteoarthrosis Visit 1:00p Of Kathleen.AHoma Bennett, Unspec Genlzd Or M.D. Localized Hand Office 04/10/2012 [facility] Tor Guillaume 723.4 Brachial Neuritis Visit 2:30p Of C.M.Lubna Reyes Or Radiculitis NOS 715.91 Osteoarthrosis Unspec Genlzd Or Localized Shoulder Office Visit 03/10/2012 1:15p Orthopedic Tor Guillaume 723.4 Brachial Neuritis Services Of M.D. Or Radiculitis NOS C.M.A. 715.91 Osteoarthrosis Unspec Genlzd Or Localized Shoulder Office Visit 12/04/2011 [facility] Trenton Olivera 794.31 Electrocardiogram 9:00a Cardiology Of Eric Kelly, (ECG) (EKG) Abnormal Risk Control Field Representative FACC, FASNC 786.05 Shortness Of Breath Office Visit 11/29/2011 Lori Olivera 794.31 Electrocardiogram 11:15a Cardiology Of Eric Kelly, (ECG) (EKG) Abnormal Risk Control Field Representative FACC, FASNC 786.05 Shortness Of Breath Office Visit 11/05/2011 11:30a Orthopedic Tor Guillaume 715.91 Osteoarthrosis Services Of M.D. Unspec Genlzd Or C.M.A. Localized Shoulder Office Visit 07/03/2010 1:00p Orthopedic Ray Herron5.91 Osteoarthrosis Services Of M.D. Unspec Genlzd Or C.M.A. Localized Shoulder Office Visit 06/20/2010 9:45a Orthopedic Steve Sellers 716.91 Arthropathy Unspec Services Of M.DHoma Shoulder Region C.M.A. 840.4 Sprains & Strains Rotator Cuff (Capsule) Office Visit 05/09/2010 8:45a Orthopedic Steve Sellers 840.4 Sprains & Services Of C.MHomaAHoma Reyes Strains Rotator Cuff (Capsule) 716.91 Arthropathy Unspec Shoulder Region Office Visit 11/25/2006 10:00a Neurosurgery Derrick Whelan 782.0 Skin Sensation Services Of Briana Coffman M.D. Disturbance Office Visit 11/11/2006 3:45p Neurosurgery Derrick Whelan 723.4 Brachial Neuritis Services Of Risk Control Field Representative Zupruk, M.D. Or Radiculitis NOS Plan of Treatment Future Appointment(s):08/04/2018 2:00 pm - Elsa Dodson MD at [facility] [place].09/21/2018 2:00 pm - Johan Cabrales M.D. at [facility]06/02/2018 - Elsa Dodson, MDM25.412 Effusion, left atoxejcpH65.012 Primary osteoarthritis, left shoulderFollow up:Follow up: 2 months
[2018-06-18 19:14] LABS: Hematocrit 38 % (33-41); Hemoglobin 12.7 g/dL (12.0-16.0); Mean Corpuscular HGB Conc 34 g/dL (31-36); Mean Corpuscular Hemoglobin 36 pg (27-31); Mean Corpuscular Volume 106 fL (80-97); Mean Platelet Volume 6.7 fL (7.4-10.4); Platelet Count 325 10^3/uL (150-450); Red Blood Count 3.54 10^6 /uL (3.70-4.87); Red Cell Distribution Width 14 % (10.5-15); White Blood Count 9.1 10^3/uL (3.5-10.8)
[2018-06-18 19:16] LABS: Activated Partial Thrombo Time 29.1 seconds (26.0-36.3); INR 0.91 (0.82-1.09)
[2018-06-18 19:26] LABS: Albumin 4.2 g/dL (3.2-5.2); Albumin/Globulin Ratio 1.4 (1-3); BUN/Creatinine Ratio 28.3 (8-20); Calcium 9.5 mg/dL (8.6-10.3); EGFR Non-African American 53.7 (>60); Globulin 2.9 g/dL (2-4); Magnesium 2.3 mg/dL (1.9-2.7); Total Bilirubin 0.3 mg/dL (0.2-1.0); Total Protein 7.1 g/dL (6.4-8.9)
[2018-06-18 19:27] LABS: Troponin I 0.01 ng/mL (<0.04)
[2018-06-18 19:32] LABS: Potassium 6.1 mmol/L (3.5-5.0)
[2018-06-18 19:36] LABS: ABS Basophils 0.1 10^3/ul (0-0.2); ABS Eosinophils 0.4 10^3/ul (0-0.6); ABS Monocytes 0.8 10^3/ul (0-0.8); ABS Neutrophils 4.9 10^3/ul (1.5-7.7); ABS Nucleated RBC 0 10^3/ul; Eosinophil % 4.3 %; Lymphocyte % 32.6 %; Nucleated Red Blood Cells % 0
[2018-06-18] MEDS ORDERED: Insulin REGULAR(*) 1 UNITS UNIT IV PUSH ONE (19:37)
[2018-06-18] MEDS ORDERED: Dextrose 50% Syringe 50 ML* 25 GM/50 ML SYRINGE IV PUSH ONE (19:37)
[2018-06-18] MEDS ORDERED: Albuterol 2.5 MG/3 ML NEB.SOL* (0.083%) INH ONE (19:37)
[2018-06-18 19:47] LABS: TSH (Thyroid Stimulating Horm) 6.02 mcIU/mL (0.34-5.60)
[2018-06-18 22:04] LABS: Urine Appearance Clear; Urine Bilirubin Negative (Negative); Urine Blood Negative (Negative); Urine Color Straw; Urine Glucose 1+(50 mg/dL) (Negative); Urine Ketones Negative (Negative); Urine Nitrite Negative (Negative); Urine Protein Negative (Negative); Urine Specific Gravity 1.008 (1.010-1.030); Urine Urobilinogen Negative (Negative)
--- NOTE | 2018-06-18 23:32 | PN ---
Progress Note - Progress Note Date of Service: 06/18/18 Note: Pt with K+ 6.1, tx with D50, insulin and albuterol. Repeat K+ pending. D/W Servomechanism Assembler Dr De Santiago who recommends tele and will eval in the morning. Admitted to hospitalist.
[2018-06-19 00:17] LABS: BUN/Creatinine Ratio 27.9 (8-20); Calcium 8.9 mg/dL (8.6-10.3); EGFR African American 76.4 (>60); EGFR Non-African American 63.2 (>60); Potassium 4.9 mmol/L (3.5-5.0)
[2018-06-19] MEDS ORDERED: Ondansetron INJ* 2 MG/ML VIAL IV PRN (00:39)
[2018-06-19 00:41] LABS: Troponin I 0.01 ng/mL (<0.04)
[2018-06-19] MEDS ORDERED: NS 0.9% 1000 ML** 1,000 ML IV SCH (00:45)
[2018-06-19] MEDS ORDERED: Lactated Ringers 1000 ML Bag* 1,000 ML IV ONE (00:46)
[2018-06-19] MEDS ORDERED: Butalb/Acetamin/Caff TAB* 1 TAB PO PRN (00:47)
[2018-06-19] MEDS ORDERED: predniSONE TAB* 5 MG PO PRN (00:47)
[2018-06-19] MEDS ORDERED: Chlorhexidine MOUTHWASH 0.12%* 15 ML UDC SWISH SPIT PRN (00:47)
[2018-06-19] MEDS ORDERED: Cyclobenzaprine TAB* 10 MG PO PRN (00:47)
[2018-06-19 01:46] LABS: Free T4 0.79 ng/dL (0.61-1.12)
--- NOTE | 2018-06-19 03:13 | HP ---
CC: Dr. Baca* HISTORY AND PHYSICAL: DATE OF ADMISSION: 06/19/18 TIME OF EVALUATION: 1899 PRIMARY CARE PHYSICIAN: Dr. Baca. CHIEF COMPLAINT: Syncope. HISTORY OF PRESENT ILLNESS: This is an 82-year-old female with a past medical history of hypertension, osteoarthritis who presents to the emergency room after having 2 syncopal episodes. The patient states she was in her usual state of health at [facility] when she was in her wheelchair, she felt nauseated and off and woke up and realized she had passed out and she was wheeling to lunch and she passed out again and was slumped over. She did not fall off of her wheelchair. She did not hit her head. She denied any lightheadedness or dizziness. She has nausea and feeling off. No chest pain. No shortness of breath. She states she was having good appetite. No vomiting. No diarrhea. No fevers. No URI symptoms. She denies any recent changes in her medications. No history of having significant pauses like this before in the past. Otherwise , review of systems is negative. In the emergency room, the patient had labs and imaging. On telemetry, in the emergency room, there was a concern for prolonged pause greater than 6 seconds and she was also noted to have hyperkalemia. She was given 3 units of insulin, 25 g of dextrose, albuterol and referred to the hospitalist service for further evaluation. PAST MEDICAL HISTORY: 1. Calcium pyrophosphate deposition disease. 2. Severe lumbar spinal stenosis. 3. Cervical spine stenosis resulting in lower extremity weakness, wheelchair bound, some ambulation. 4. History of oszee-xyi-cutr DVT, not on anticoagulation. 5. Mild dementia. 6. Hypertension. 7. Migraines. 8. Depression. 9. Osteoarthritis. MEDICATIONS: 1. Allopurinol 100 mg p.o. daily. 2. Gabapentin 100 mg p.o. t.i.d. 3. Lexapro 5 mg p.o. daily. 4. Ramipril 10 mg daily. 5. Prolia 60 mg subcu q.6 months. 6. Prevagen 10 mg daily. 7. Vitamin B complex daily. 8. Tumeric caps daily. 9. Peridex mouthwash as needed. 10. Refresh Tears. 11. Fioricet as needed. 12. Tramadol 50 mg every 8 hours as needed. 13. Cyclobenzaprine 10 mg every 8 hours as needed. 14. Tylenol 650 mg every 6 hours as needed for pain. 15. Prednisone 5 mg daily as needed for gout flare-up. 16. Diclofenac topically to neck and left shoulder as needed for pain. ALLERGIES: ASPIRIN and PENICILLIN. SOCIAL HISTORY: The patient resides at [facility]. She is mainly wheelchair bound. She does ambulate sometimes with a walker. No history of tobacco use. She occasionally drinks wine every other evening. Her healthcare proxy is her daughter, Alisa Flores, phone number [phone]. Code status is a full code. FAMILY HISTORY: Reviewed and noncontributory. REVIEW OF SYSTEMS: A 14-point review of systems as mentioned in the HPI, otherwise negative. PHYSICAL EXAMINATION GENERAL: No acute distress, resting comfortably. VITAL SIGNS: Temp 98.4, pulse rate 71, respiratory rate 12, oxygen saturation 96% on room air, blood pressure 166/82. HEENT: Head: Normocephalic. Pupils equal and reactive, anicteric. Oropharynx : Mucous membranes are moist. NECK: Supple. No lymphadenopathy. RESPIRATORY: Clear to auscultation. No wheezes, rhonchi, or rales. CARDIAC: Regular rate and rhythm. Harsh systolic murmur heard throughout, radiated to the carotids. ABDOMEN: Soft, nontender, nondistended. EXTREMITIES: No clubbing, cyanosis, or edema. Noted significant osteoarthritic deformity changes in her upper and lower extremities. NEUROLOGICAL: Alert and oriented x3. No gross focal neurologic deficits. She does have more weakness in her lower extremities, although symmetric. LABORATORY DATA/DIAGNOSTIC STUDIES: White count 9.1, hemoglobin 12.7, hematocrit 38, platelets 325. INR 0.91. Sodium 135, potassium 6.1, repeat 4.9 , chloride 104, bicarb 24, BUN 24, creatinine 0.86. Troponin is 0.01 x2. TSH is 6.02. UA is unremarkable. EKG: Normal sinus rhythm, QTc of 410. Head CT: There is a age-related diffuse cerebral volume loss and chronic microvascular ischemic disease, no acute pathology. Chest x-ray: No acute findings. ASSESSMENT: This is an 82-year-old female with a past medical history of hypertension who presents to the emergency room from [facility] after having 2 syncopal episodes, found to have a significant pause in the emergency room. 1. Syncopal episodes. Assessment: Most likely scenario is that this is related to prolonged sinus pauses. Her EKG is unremarkable. Trops are negative x2. She is asymptomatic at this time. She was initially noted to have hyperkalemia with a slight elevation in her BUN and creatinine, which has resolved with intervention. The pause is recorded to be greater than 6 seconds and was put on the chart, possibly 1 intrinsic beat within the pause. Plan: We will admit her to the ICU due to this prolonged pause. We will stop her ramipril. Keep her on IV fluids, n.p.o. and follow up with cardiology to determine if the patient is a candidate for pacemaker placement. We will also order an echocardiogram as well with this in the setting of murmu as it may be contributing to her syncopal episode, less likely seizure activity in this clinical situation. 2. Chronic medical problems. 3. We will resume her home medications as prescribed with the exception of the ramipril. 4. FEN. NPO with gentle IV fluids. 5. DVT prophylaxis. The patient scores high risk. We will place her on heparin subcu t.i.d. 6. Code status. Full code. PATIENT TIME: Greater than 45 minutes was spent doing the history and physical , more than half the time was direct patient contact. [id number]/[facility] #: [id number] WEN
[2018-06-19] MEDS ORDERED: Heparin VIAL(*) 5000 UNITS/ML VIAL (FIVE THOUSAND) SUBCUT SCH (06:00)
[2018-06-19 06:07] LABS: ABS Basophils 0.1 10^3/ul (0-0.2); ABS Eosinophils 0.4 10^3/ul (0-0.6); ABS Monocytes 0.7 10^3/ul (0-0.8); ABS Neutrophils 3.8 10^3/ul (1.5-7.7); ABS Nucleated RBC 0 10^3/ul; Eosinophil % 4.4 %; Hematocrit 34 % (33-41); Hemoglobin 11.6 g/dL (12.0-16.0); Lymphocyte % 44.4 %; Mean Corpuscular HGB Conc 34 g/dL (31-36); Mean Corpuscular Hemoglobin 36 pg (27-31); Mean Corpuscular Volume 105 fL (80-97); Nucleated Red Blood Cells % 0.1; Platelet Count 310 10^3/uL (150-450); Red Blood Count 3.22 10^6 /uL (3.70-4.87); Red Cell Distribution Width 14 % (10.5-15)
[2018-06-19] MEDS: Acetaminophen TAB* 325 MG PO PRN (06:09)
[2018-06-19 06:16] LABS: BUN/Creatinine Ratio 23.9 (8-20); Calcium 9.1 mg/dL (8.6-10.3); EGFR African American 74.4 (>60); EGFR Non-African American 61.5 (>60); Potassium 4.6 mmol/L (3.5-5.0)
[2018-06-19] MEDS: Heparin VIAL(*) 5000 UNITS/ML VIAL (FIVE THOUSAND) SUBCUT SCH ×3 (07:29→22:15)
[2018-06-19] MEDS: Allopurinol TAB* 100 MG PO SCH (08:09)
[2018-06-19] MEDS: Escitalopram * 5 MG TAB PO SCH (08:53)
--- NOTE | 2018-06-19 12:39 | CONS ---
CONSULTATION REPORT: DATE OF CONSULT: 06/19/18 REASON FOR CONSULT: Four to five second sinus pause with presentation of syncope. ATTENDING SOD CUTTER: Dr. De Santiago* (dictated by Patsy Hawkins NP). PRIMARY SOD CUTTER: The patient historically saw Dr. Kelly for preoperative clearance in 2011; however, she has not been seen by Cardiology since. PRIMARY PHYSICIAN: Dr. Baca. PRIMARY AUTOMO[employer]LE CLUB INFORMATION CLERK: Historically, Dr. Rashid. CHIEF COMPLAINT: Two episodes of syncope, 06/18/18. HISTORY OF PRESENT ILLNESS: This is a pleasant 82-year-old female patient with a notable history of COPD, hypertension, hyperlipidemia, analgesic-induced nephropathy in 2007 according to prior medical record, she had stage 3 chronic kidney disease, inflammatory polyarthropathy, and right peroneal DVT in May 2017. The patient presented to [facility] on 06/18/18 after suffering from two witnessed syncopal episodes while sitting in her wheelchair. The patient resides at [facility]. She states that she remains active, although she is usually wheelchair dependent. However, on Tuesdays and , she works with physical therapy and she is able to ambulate with a walker when needed. Apparently, yesterday she participated with her physical therapist around 9 o' clock in the morning. She had breakfast with no events that occurred. She actually has difficulty recalling the events that led up to her syncopal episodes; however, she does state that she remembers being dizzy and lightheaded prior to episode. She does not believe that she sustained an injury related to her syncopal episodes given that it occurred while she was sitting in her wheelchair. A 911 was called and she was transferred to [facility]. While being evaluated in the emergency department, she had a 4 to 5 second pause on telemetry that was captured and placed in her chart. The patient was not symptomatic at that time. The patient was admitted to the ICU. Her potassium was 6.3. Upon further review, it appears that she was hyperkalemic on 05/15/18 as well. She is on chronic GEORGES inhibitor therapy. Her TSH was elevated at 6.02. GEORGES inhibitor therapy was held. Troponin values were normal and we were asked to see the patient in consultation. The patient offers no complaints at this time. Denies chest pain, shortness of breath, palpitations, sensation of heart racing, recurrent episodes of dizziness and lightheadedness. She states that when she exerts herself with physical therapy or participating in exercise classes at [facility], she does not experience exertional symptoms such as chest pain, dizziness or syncope. She offers no complaints at this time. Telemetry has been reviewed. The patient has been in sinus rhythm with frequent PACs. No evidence of high-degree AV block. PAST MEDICAL HISTORY: Includes: 1. Right peroneal DVT, May 2017. 2. Prior documented history of stage 3 chronic kidney disease. 3. Analgesic-induced nephropathy. 4. Hypertension. 5. Hyperlipidemia. 6. Inflammatory polyarthropathy. 7. COPD. 8. Migraine. PAST SURGICAL HISTORY: Includes: 1. Left total knee replacement. 2. Tonsillectomy. 3. Right shoulder reverse arthroplasty. 4. Right patellar repair. MEDICATIONS: Home medications according to admission med rec include: 1. Prolia 60 mg subcutaneous q.6 months. 2. Flexeril 10 mg p.o. q.8 h. 3. Chlorhexidine as needed. 4. Allopurinol 100 mg p.o. daily. 5. Tylenol as needed. 6. Prednisone 5 mg a day p.r.n. 7. Tramadol 50 mg p.o. q.8 h. p.r.n. 8. Ramipril 10 mg a day. 9. Prevagen 10 mg a day. 10. Gabapentin 100 mg p.o. t.i.d. 11. Lexapro 5 mg a day. 12. Vitamin B complex daily. ALLERGIES: Includes: 1. ASPIRIN, which causes rash. 2. PENICILLIN, which causes rash. FAMILY HISTORY: Noncontributory. SOCIAL HISTORY: The patient resides at [facility]. She is . 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 Her daughter, Alisa, is her healthcare proxy. [facility]; however, has not smoked since. She reports drinking wine socially. Denies illegal drug use and is a full code. REVIEW OF SYSTEMS: All systems have been reviewed and otherwise negative except what is above mentioned in the HPI. PHYSICAL EXAM: General: The patient was lying in bed upon entering the room, offers no complaints. She is alert and oriented x3. Cooperative with exam. No apparent distress. HEENT: Head is atraumatic and normocephalic. Oral mucosa is moist. Tongue is midline. Neck: Supple. Trachea midline. No JVD. No carotid bruits. No thyromegaly. Lungs: Auscultated posteriorly. No evidence of adventitious breath sounds. Respirations are nonlabored. Cardiac: Normal S1 and S2. Regular rate and rhythm. No murmur, rub, or gallop noted. /GI: Abdomen is soft, nontender, and nondistended. Normoactive bowel sounds x4. Peripheral Vascular: 2+ brachial and dorsalis pedis pulses palpated bilaterally symmetrically. Skin: Intact. No evidence of rashes, ecchymosis, or lesions appreciated. There is a 2x2 dressing noted on the left pretibial surface of her left lower extremity. DIAGNOSTIC STUDIES/LAB DATA: Blood work was reviewed. On 06/19/18, sodium was 138, potassium 4.6, chloride 107, carbon-dioxide 24, BUN 21, creatinine 0.88, glucose 85. Troponin was negative x2. TSH 6.02. INR 0.91. White count 9, hemoglobin 11.6, hematocrit 34, platelets 310. ECG reviewed from 06/18/18. The patient was in sinus rhythm, rate 66. No ST- segment changes appreciated. FL interval was 237. No evidence of high-degree AV block. ECG from 06/19/18 reviewed. Normal sinus rhythm, rate of 70. FL interval 197, no ST changes appreciated. Telemetry reviewed. ASSESSMENT AND PLAN: 1. Syncope with complaints of lightheadedness prior to episodes occurring on . This is in the setting of moderate hyperkalemia, potassium was 6.3 previously, was 5.3 on 05/15/18 with a known history of analgesic-induced nephropathy. In the past, per medical record, she had stage 3 chronic kidney disease. There has been no recurrent events of sinus arrest since yesterday while being evaluated in the emergency department. I did personally review telemetry strip that was placed in her chart from the emergency department. She had a 4 to 5 second episode of sinus pause, apparently the patient was not symptomatic. Ramipril therapy has been placed on hold. The patient was offered pacemaker versus conservative management with 30-day event monitor. At this time, the patient desires to be evaluated with the 30-day event monitor with close cardiac followup. Thus, order was placed for 30-day event monitor through [email or web address] with a followup appointment with Dr. De Santiago afterwards. Recommend discontinuation of GEORGES inhibitor, close monitoring of potassium level, and continued observation on telemetry. Social work was consulted to evaluate the [id number] expense for a 30-day event monitor. 2. Hyperkalemia. GEORGES inhibitor discontinued. Potassium level is normal today. The patient does have known history of renal insufficiency. 3. History of prior documented stage 3 chronic kidney disease in 2007. I spoke to Ashley Bang who is monitoring renal function. The patient is currently off GEORGES inhibitor. 4. History of hypertension. Blood pressure is elevated today. Recommend discontinuation of GEORGES. I would avoid AV marlin agents due to above #1. 5. Disposition. Pending course. The patient is full code. Dr. De Santiago has personally seen and examined the patient and agrees with the above assessment and plan. If you have any questions or concerns, please do not hesitate to contact our practice. PATSY HAWKINS NP [id number]/[facility] #: [id number] 06.22.2018 8:10 pm:pt seen and examined. Consult discussed with STEFANIA Hawkins. I agree with the above plan for care and management. WEN
--- NOTE | 2018-06-19 15:02 | ECHO ---
*[facility]* [place] [address] Fax #: [phone] Transthoracic Echocardiogram Patient: Reba Grullon Height: 65 in / S 165.1 cm : 1935 Weight: 124.7 lb / Study Date: 06/19/2018 56.7 kg Age: 82 BP: 158 / 70 Gender: F BMI/BSA: 20.8 kg/m^2 HR: 73 bpm / 1.62 m^2 *Stockfeed Miller: * Candice Lind *Referring Physician: * Poppy Jones *Reading Physician: * Marley De Santiago Indications: Syncope. History: Murmur. Risk factors: Hypertension. Conclusions Summary: 1. Impressions: No previous study was available for comparison. 2. Left ventricle: The cavity size is normal. Wall thickness is normal. Systolic function is normal. The estimated ejection fraction is 60-65%. There is no consistent Doppler evidence of clinically significant diastolic dysfunction. 3. Ventricular septum: There is a prominent septal knuckle measuring 1.6 cm. 4. Mitral valve: There is mild regurgitation. 5. Tricuspid valve: There is mild-moderate regurgitation. Study data: Transthoracic echocardiogram. Procedure: Transthoracic echocardiography was performed. Image quality was fair. Complete 2D, spectral Doppler, and color flow Doppler. Patient status: Inpatient. Patient room number: ICU 5. Rhythm: Normal sinus rhythm with PAC's. Findings Left ventricle: The cavity size is normal. Wall thickness is normal. Systolic function is normal. The estimated ejection fraction is 60-65%. Wall motion is normal; there are no regional wall motion abnormalities. There is no consistent Doppler evidence of clinically significant diastolic dysfunction. Right ventricle: The cavity size is normal. Systolic function is normal. Ventricular septum: There is a prominent septal knuckle measuring 1.6 cm. Left atrium: The atrium is normal in size. Right atrium: The atrium is normal in size. Mitral valve: The leaflets are mildly thickened. There is no evidence of stenosis. There is mild regurgitation. The peak diastolic gradient is 4.0 mm Hg. Aortic valve: The annulus is calcified. The valve is trileaflet. The leaflets are mildly calcified. There is no evidence of stenosis. There is no significant regurgitation. The valve area by the velocity-time integral method is 3.10 cm^2. The valve area by the peak velocity method is 2.70 cm^2. The mean systolic gradient is 6.0 mm Hg. The peak systolic gradient is 10.0 mm Hg. Tricuspid valve: The valve is structurally normal. There is no evidence of stenosis. There is mild-moderate regurgitation. Pulmonic valve: Not well visualized. There is no evidence of stenosis. There is trivial regurgitation. The peak systolic gradient is 2.0 mm Hg. Aorta: Aortic arch: The aortic arch is not dilated. The aortic root is not dilated. The ascending aorta is not dilated. Pericardium: There is no pericardial effusion. Pulmonary arteries: Not well visualized. Systolic pressure is mildly increased, estimated to be 37 mm Hg. Systemic veins: Inferior vena cava: Not well visualized. Measurements Left ventricle Value Ref Right atrium Value Ref SALLY, LAX 4.0 cm 3.8 - 5.2 SI dim, ES 3.9 cm 3.4 - 5.3 ESD, LAX 2.5 cm 2.2 - 3.5 ML dim, ES, A4C 3.3 cm 2.6 - 4.4 FS, LAX (L) 12 % 27 - 45 PW, ED, LAX 0.8 cm 0.6 - 0.9 Aortic valve Value Ref FS (L) 12 % 27 - 45 Em diam, ED 2.0 cm --------- IVS/PW, ED 0.99 Peak v, S 1.6 m/sec --------- E', lat em, TDI (L) 7.1 cm/sec >=10.0 Mean v, S 1.2 m/sec -- ------- E/e', lat em, 14 VTI, S 37.0 cm ----- ---- TDI Mean grad, S 6.0 mm Hg --------- E', med em, TDI (L) 6.7 cm/sec >=7.0 Peak grad, S 10.0 mm Hg -- ------- E/e', med em, 15 KRISHNA, VTI 3.10 cm^2 ----- ---- TDI KRISHNA, Vmax 2.70 cm^2 --------- E', avg, TDI 6.9 cm/sec E/e', avg, TDI 14 <=14 Mitral valve Value Re f Peak E 0.99 m/sec --------- LVOT Value Ref Peak A 0.88 m/sec --------- Diam, S 2.00 cm Decel time 197 ms --------- Area 3.1 cm^2 Peak grad, D 4.0 mm Hg --------- Peak anderson, S 1.4 m/sec Peak E/A ratio 1.1 --------- Mean anderson, S 0.95 m/sec Peak grad, S 8 mm Hg Tricuspid valve Value Ref Mean grad, S 4 mm Hg TR peak v 2.7 m/sec <=2.8 SV 116 ml Peak RV-RA grad, S 29 mm Hg --------- Max TR anderson 2.7 m/sec --------- Ventricular septum Value Ref IVS, ED, LAX 0.8 cm 0.6 - 0.9 Aortic root Value Ref Root diam 3.2 cm <3.9 Right ventricle Value Ref SALLY, LAX 2.8 cm Ascending aorta Value Ref SALLY minor ax, 3.5 cm 1.9 - 3.5 AAo AP diam, S 3.4 cm --------- A4C mid Aortic arch Value Ref Left atrium Value Ref Arch diam 2.8 cm --------- AP dim, ES 3.20 cm 2.70 - 3.80 Decending aorta Value Ref ML dim, A4C 3.7 cm Harish peak anderson 0.45 m/sec --------- Vol/bsa, ES, 1-p 28 ml/m^2 11 - 40 A4C Vol/bsa, ES, 1-p 20 ml/m^2 13 - 40 A2C Vol/bsa, ES, A/L 30 ml/m^2 16 - 34 Legend: (L) and (H) angy values outside specified reference range. Prepared and electronically signed by Marley De Santiago 06/19/2018 15:02
--- NOTE | 2018-06-19 18:37 | PN ---
Subjective Date of Service: 06/19/18 Interval History: Patient seen and examined in ICU. No further pauses noted on telemetry, no further syncope. Patient denies chest pain, no SOB, no complaints. Evaluation by cardiology completed. Patient requested conservative management. Objective Active Medications: Acetaminophen (Tylenol Tab*) 650 mg PO Q4H PRN PRN Reason: FEVER/PAIN Last Admin: 06/19/18 06:09 Dose: 650 mg Acetaminophen/Butalbital/Caffeine (Fioricet Tab*) 1 tab PO DAILY PRN PRN Reason: MIGRAINE HEADACHE Allopurinol (Zyloprim Tab*) 100 mg PO DAILY [facility] Last Admin: 06/19/18 08:09 Dose: 100 mg Chlorhexidine Gluconate (Peridex Mouth Wash 0.12%*) 15 ml SWISH SPIT TID PRN PRN Reason: PER PROTOCOL Cyclobenzaprine HCl (Flexeril Tab*) 10 mg PO Q8HR PRN PRN Reason: SPASMS Escitalopram Oxalate (Lexapro *) 5 mg PO DAILY [facility]; Protocol Last Admin: 06/19/18 08:53 Dose: 5 mg Heparin Sodium (Porcine) (Heparin Vial(*)) 5,000 units SUBCUT Q8H [facility] Last Admin: 06/19/18 13:35 Dose: 5,000 units Ondansetron HCl (Zofran Inj*) 4 mg IV Q4H PRN PRN Reason: NAUSEA/VOMITING Tramadol HCl (Ultram*) 50 mg PO Q8H PRN PRN Reason: PAIN Vital Signs - 8 hr 06/19/18 06/19/18 06/19/18 10:46 11:00 11:01 Temperature Pulse Rate 77 76 78 Respiratory 16 18 19 Rate Blood Pressure 147/119 167/143 (mmHg) O2 Sat by Pulse 96 95 96 Oximetry 06/19/18 13:05 Temperature 98.5 F Pulse Rate 67 Respiratory 18 Rate Blood Pressure 173/69 (mmHg) O2 Sat by Pulse 97 Oximetry Oxygen Devices in Use Now: None Appearance: alert, NAD Eyes: No Scleral Icterus, PERRLA Ears/Nose/Mouth/Throat: NL Teeth, Lips, Gums, Mucous Membranes Moist Neck: NL Appearance and Movements; NL JVP, Trachea Midline Respiratory: Symmetrical Chest Expansion and Respiratory Effort, Clear to Auscultation Cardiovascular: NL Sounds; No Murmurs; No JVD, RRR, No Edema Abdominal: NL Sounds; No Tenderness; No Distention Extremities: No Edema, No Clubbing, Cyanosis Skin: No Rash or Ulcers, No Nodules or Sclerosis Neurological: Alert and Oriented x 3, NL Muscle Strength and Tone Nutrition: Taking PO's Result Diagrams: 06/19/18 05:39 06/19/18 05:39 Microbiology and Other Data: Microbiology 06/19/18 06:00 Nasal Screen MRSA (PCR) - Final Nasal Mrsa Not Detected Diagnostic Imaging: *[facility]* [place] [address] Fax #: [phone] Transthoracic Echocardiogram Patient: Reba Grullon Height: 65 in / S 165.1 cm : 1935 Weight: 124.7 lb / Study Date: 06/19/2018 56.7 kg Age: 82 BP: 158 / 70 Gender: F BMI/BSA: 20.8 kg/m^2 HR: 73 bpm / 1.62 m^2 *[employer] Roller: * Candice Lind *Referring Physician: * Poppy Jones *Reading Physician: * Marley De Santiago Indications: Syncope. History: Murmur. Risk factors: Hypertension. Conclusions Summary: 1. Impressions: No previous study was available for comparison. 2. Left ventricle: The cavity size is normal. Wall thickness is normal. Systolic function is normal. The estimated ejection fraction is 60-65%. There is no consistent Doppler evidence of clinically significant diastolic dysfunction. 3. Ventricular septum: There is a prominent septal knuckle measuring 1.6 cm. 4. Mitral valve: There is mild regurgitation. 5. Tricuspid valve: There is mild-moderate regurgitation. Study data: Transthoracic echocardiogram. Procedure: Transthoracic echocardiography was performed. Image quality was fair. Complete 2D, spectral Doppler, and color flow Doppler. This report is only to be considered final once signed by the Provider(s) as displayed in the "<Electronically Signed by >" field (s). Absence of a signature indicates the report is in a draft status and still needs to be finalized. In the event this document was created by someone other than the signing Provider, the individual initiating the document will be listed in the "Entered by:" or "Dictated by:" castelan. Assess/Plan/Problems-Billing Assessment: This is an 82 year old female that presented to ED with complaint of syncopal episode and noted to have sinus pause on tele and elevated potassium. - Patient Problems (1) Syncope and collapse Code(s): R55 - SYNCOPE AND COLLAPSE SNOMED Code(s): 692879306 Comment: - With sinus pause and hyperkalemia - May be underlying SSS - Cardiology consult appreciated - Plan for outpatient event monitor Friday or Friday, patient declines pacemaker at this time - continue telemetry and conservative management (2) CKD (chronic kidney disease) Code(s): N18.9 - CHRONIC KIDNEY DISEASE, UNSPECIFIED SNOMED Code(s): 248367856 Comment: - Was a patient of Dr. Rashid in the past - With elevated K, now within normal range - Creatinine also back to normal range - Recommend low K diet and outpatient follow up with Dr. Rashid (3) Hyperkalemia Code(s): E87.5 - HYPERKALEMIA SNOMED Code(s): 57127598 Comment: - Treated, K now <5 - Follow AM labs (4) Hx of calcium pyrophosphate deposition disease (CPPD) Code(s): Z87.39 - PERSONAL HISTORY OF DISEASES OF THE MS SYS AND CONN TISS SNOMED Code(s): 388232453 Comment: - Stable, no pain at present, continue home regimen (5) Osteoarthritis Code(s): M19.90 - UNSPECIFIED OSTEOARTHRITIS, UNSPECIFIED SITE SNOMED Code(s) : 960542876 Comment: - Home pain control regimen (6) Spinal stenosis Current Visit: No Status: Acute Code(s): M48.00 - SPINAL STENOSIS, SITE UNSPECIFIED SNOMED Code(s): 45280516 Comment: this 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 Remain inpatient on tele until outpatient event monitor can be arranged on Friday/Friday.
[2018-06-20] MEDS: Heparin VIAL(*) 5000 UNITS/ML VIAL (FIVE THOUSAND) SUBCUT SCH ×3 (05:33→22:23)
[2018-06-20 06:18] LABS: Hematocrit 35 % (33-41); Hemoglobin 11.8 g/dL (12.0-16.0); Mean Corpuscular HGB Conc 34 g/dL (31-36); Mean Corpuscular Hemoglobin 36 pg (27-31); Mean Corpuscular Volume 104 fL (80-97); Mean Platelet Volume 7.3 fL (7.4-10.4); Platelet Count 283 10^3/uL (150-450); Red Cell Distribution Width 14 % (10.5-15); White Blood Count 8.4 10^3/uL (3.5-10.8)
[2018-06-20 06:23] LABS: Calcium 9.3 mg/dL (8.6-10.3); Potassium 4.2 mmol/L (3.5-5.0)
[2018-06-20 06:29] LABS: BUN/Creatinine Ratio 22.1 (8-20); EGFR African American 76.4 (>60); EGFR Non-African American 63.2 (>60)
[2018-06-20] MEDS: Allopurinol TAB* 100 MG PO SCH (10:05)
[2018-06-20] MEDS: Escitalopram * 5 MG TAB PO SCH (10:05)
--- NOTE | 2018-06-20 16:36 | PN ---
Subjective Date of Service: 06/20/18 Interval History: Pt reports she would now like to move forward with pacemaker placement. She denies any further syncopal episodes. She denies CP/SOB. Objective Active Medications: Acetaminophen (Tylenol Tab*) 650 mg PO Q4H PRN PRN Reason: FEVER/PAIN Last Admin: 06/19/18 06:09 Dose: 650 mg Acetaminophen/Butalbital/Caffeine (Fioricet Tab*) 1 tab PO DAILY PRN PRN Reason: MIGRAINE HEADACHE Last Admin: 06/20/18 11:10 Dose: 1 tab Allopurinol (Zyloprim Tab*) 100 mg PO DAILY [facility] Last Admin: 06/20/18 10:05 Dose: 100 mg Chlorhexidine Gluconate (Peridex Mouth Wash 0.12%*) 15 ml SWISH SPIT TID PRN PRN Reason: PER PROTOCOL Cyclobenzaprine HCl (Flexeril Tab*) 10 mg PO Q8HR PRN PRN Reason: SPASMS Escitalopram Oxalate (Lexapro *) 5 mg PO DAILY [facility]; Protocol Last Admin: 06/20/18 10:05 Dose: 5 mg Heparin Sodium (Porcine) (Heparin Vial(*)) 5,000 units SUBCUT Q8H [facility] Last Admin: 06/20/18 16:10 Dose: Not Given Ondansetron HCl (Zofran Inj*) 4 mg IV Q4H PRN PRN Reason: NAUSEA/VOMITING Tramadol HCl (Ultram*) 50 mg PO Q8H PRN PRN Reason: PAIN Vital Signs - 8 hr 06/20/18 06/20/18 11:10 14:30 Respiratory 16 14 Rate Oxygen Devices in Use Now: None Appearance: 82 female laying in bed watching tv A+Ox3, mild confusion noted in NAD Eyes: No Scleral Icterus, PERRLA Ears/Nose/Mouth/Throat: NL Teeth, Lips, Gums, Mucous Membranes Moist Neck: NL Appearance and Movements; NL JVP Respiratory: Symmetrical Chest Expansion and Respiratory Effort, Clear to Auscultation Cardiovascular: NL Sounds; No Murmurs; No JVD, RRR, No Edema Abdominal: NL Sounds; No Tenderness; No Distention Extremities: No Edema, No Clubbing, Cyanosis Skin: No Rash or Ulcers Neurological: Alert and Oriented x 3, NL Sensation Lines/Tubes/Other Access: Clean, Dry and Intact Peripheral IV Nutrition: Taking PO's Result Diagrams: 06/20/18 05:32 06/20/18 05:32 Microbiology and Other Data: Microbiology 06/19/18 06:00 Nasal Screen MRSA (PCR) - Final Nasal Mrsa Not Detected Diagnostic Imaging: *[facility]* [place] [address] Fax #: [phone] Transthoracic Echocardiogram Patient: Reba Grullon Height: 65 in / S 165.1 cm : 1935 Weight: 124.7 lb / Study Date: 06/19/2018 56.7 kg Age: 82 BP: 158 / 70 Gender: F BMI/BSA: 20.8 kg/m^2 HR: 73 bpm / 1.62 m^2 *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 History: Murmur. Risk factors: Hypertension. Conclusions Summary: 1. Impressions: No previous study was available for comparison. 2. Left ventricle: The cavity size is normal. Wall thickness is normal. Systolic function is normal. The estimated ejection fraction is 60-65%. There is no consistent Doppler evidence of clinically significant diastolic dysfunction. 3. Ventricular septum: There is a prominent septal knuckle measuring 1.6 cm. 4. Mitral valve: There is mild regurgitation. 5. Tricuspid valve: There is mild-moderate regurgitation. Study data: Transthoracic echocardiogram. Procedure: Transthoracic echocardiography was performed. Image quality was fair. Complete 2D, spectral Doppler, and color flow Doppler. This report is only to be considered final once signed by the Provider(s) as displayed in the "<Electronically Signed by >" field (s). Absence of a signature indicates the report is in a draft status and still needs to be finalized. In the event this document was created by someone other than the signing Provider, the individual initiating the document will be listed in the "Entered by:" or "Dictated by:" castelan. Assess/Plan/Problems-Billing Assessment: This is an 82 year old female that presented to ED with complaint of syncopal episode and noted to Mobitz II - Patient Problems (1) Syncope and collapse Comment: - no further epsiodes - Found to have Mobitz II. asymptomatic. Cardiology notified. Discussed with patient - she is now agreeable to pacemaker placement - plan on Friday - Cardiology consult appreciated - continue telemetry (2) CKD (chronic kidney disease) Comment: - Was a patient of Dr. Rashid in the past - With elevated K, now within normal range - Creatinine also back to normal range - Recommend low K diet and outpatient follow up with Dr. 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 Bill discussed w/ daughter maraina neurology and neurosurgery consulted; surgery will not be offered continue PT (7) DVT prophylaxis Comment: - HSQ (8) Full code status Status and Disposition: [address] [place] [address]. Remain inpatient. Plan for pacer on friday
[2018-06-21] MEDS: Heparin VIAL(*) 5000 UNITS/ML VIAL (FIVE THOUSAND) SUBCUT SCH ×3 (06:08→21:50)
[2018-06-21] MEDS: Allopurinol TAB* 100 MG PO SCH (08:33)
[2018-06-21] MEDS: Escitalopram * 5 MG TAB PO SCH (08:34)
[2018-06-21] MEDS: traMADol TAB* 50 MG PO PRN (14:14)
--- NOTE | 2018-06-21 15:19 | PN ---
Subjective Date of Service: 06/21/18 Interval History: Patient offers no complaints today stating she feels well. denies any CP/SOB/ dizziness. Objective Active Medications: Acetaminophen (Tylenol Tab*) 650 mg PO Q4H PRN PRN Reason: FEVER/PAIN Last Admin: 06/19/18 06:09 Dose: 650 mg Acetaminophen/Butalbital/Caffeine (Fioricet Tab*) 1 tab PO DAILY PRN PRN Reason: MIGRAINE HEADACHE Last Admin: 06/20/18 11:10 Dose: 1 tab Allopurinol (Zyloprim Tab*) 100 mg PO DAILY [facility] Last Admin: 06/21/18 08:33 Dose: 100 mg Chlorhexidine Gluconate (Peridex Mouth Wash 0.12%*) 15 ml SWISH SPIT TID PRN PRN Reason: PER PROTOCOL Cyclobenzaprine HCl (Flexeril Tab*) 10 mg PO Q8HR PRN PRN Reason: SPASMS Escitalopram Oxalate (Lexapro *) 5 mg PO DAILY [facility]; Protocol Last Admin: 06/21/18 08:34 Dose: 5 mg Heparin Sodium (Porcine) (Heparin Vial(*)) 5,000 units SUBCUT Q8H [facility] Last Admin: 06/21/18 14:15 Dose: 5,000 units Sodium Chloride (Ns 0.45% 1000 Ml Bag*) 1,000 mls @ 75 mls/hr IV PER RATE [facility] Stop: 06/23/18 23:59 Ondansetron HCl (Zofran Inj*) 4 mg IV Q4H PRN PRN Reason: NAUSEA/VOMITING Tramadol HCl (Ultram*) 50 mg PO Q8H PRN PRN Reason: PAIN Last Admin: 06/21/18 14:14 Dose: 50 mg Vital Signs - 8 hr 06/21/18 06/21/18 08:00 14:14 Respiratory 16 17 Rate Oxygen Devices in Use Now: None Appearance: eldelry female sitting up in bed in NAd, A+O x3, noted mild dementia Ears/Nose/Mouth/Throat: Mucous Membranes Moist Neck: NL Appearance and Movements; NL JVP Respiratory: Symmetrical Chest Expansion and Respiratory Effort, Clear to Auscultation Cardiovascular: NL Sounds; No Murmurs; No JVD, RRR, No Edema Abdominal: NL Sounds; No Tenderness; No Distention Extremities: No Edema, No Clubbing, Cyanosis Skin: No Nodules or Sclerosis Neurological: Alert and Oriented x 3, NL Sensation Lines/Tubes/Other Access: Clean, Dry and Intact Peripheral IV Nutrition: Taking PO's Result Diagrams: 06/20/18 05:32 06/20/18 05:32 Microbiology and Other Data: Microbiology 06/19/18 06:00 Nasal Screen MRSA (PCR) - Final Nasal Mrsa Not Detected Diagnostic Imaging: *[facility]* [place] [address] Fax #: [phone] Transthoracic Echocardiogram Patient: Reba Grullon Height: 65 in / S 165.1 cm : 1935 Weight: 124.7 lb / Study Date: 06/19/2018 56.7 kg Age: 82 BP: 158 / 70 Gender: F BMI/BSA: 20.8 kg/m^2 HR: 73 bpm / 1.62 m^2 *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 History: Murmur. Risk factors: Hypertension. Conclusions Summary: 1. Impressions: No previous study was available for comparison. 2. Left ventricle: The cavity size is normal. Wall thickness is normal. Systolic function is normal. The estimated ejection fraction is 60-65%. There is no consistent Doppler evidence of clinically significant diastolic dysfunction. 3. Ventricular septum: There is a prominent septal knuckle measuring 1.6 cm. 4. Mitral valve: There is mild regurgitation. 5. Tricuspid valve: There is mild-moderate regurgitation. Study data: Transthoracic echocardiogram. Procedure: Transthoracic echocardiography was performed. Image quality was fair. Complete 2D, spectral Doppler, and color flow Doppler. This report is only to be considered final once signed by the Provider(s) as displayed in the "<Electronically Signed by >" field (s). Absence of a signature indicates the report is in a draft status and still needs to be finalized. In the event this document was created by someone other than the signing Provider, the individual initiating the document will be listed in the "Entered by:" or "Dictated by:" castelan. Assess/Plan/Problems-Billing Assessment: This is an 82 year old female that presented to ED with complaint of syncopal episode and noted to Mobitz II - Patient Problems (1) Syncope and collapse Comment: - no further epsiodes - Found to have Mobitz II. asymptomatic. Cardiology notified. Plan for pacemaker placement on Friday - NPO after midnight - Cardiology consult appreciated - continue telemetry (2) CKD (chronic kidney disease) Comment: - Was a patient of Dr. Rashid in the past - With elevated K, now within normal range - Creatinine also back to normal range - Recommend low K diet and outpatient follow up with Dr. 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 Bill discussed w/ daughter mariana neurology and neurosurgery consulted; surgery will not be offered continue PT (7) DVT prophylaxis Comment: - HSQ (8) Full code status Status and Disposition: [address] telemetry. Remain inpatient. Plan for pacer on friday
[2018-06-22] MEDS ORDERED: NS 0.45% 1000 ML BAG* 1,000 ML IV SCH (00:01)
[2018-06-22] MEDS ORDERED: NS 0.9% 1000 ML** 1,000 ML IV SCH (05:30)
[2018-06-22] MEDS: Heparin VIAL(*) 5000 UNITS/ML VIAL (FIVE THOUSAND) SUBCUT SCH ×3 (05:47→21:32)
[2018-06-22 06:01] LABS: ABS Basophils 0 10^3/ul (0-0.2); ABS Eosinophils 0.4 10^3/ul (0-0.6); ABS Monocytes 0.6 10^3/ul (0-0.8); ABS Neutrophils 2.8 10^3/ul (1.5-7.7); ABS Nucleated RBC 0 10^3/ul; Eosinophil % 5.6 %; Hematocrit 34 % (33-41); Hemoglobin 11.3 g/dL (12.0-16.0); Lymphocyte % 43.7 %; Mean Corpuscular HGB Conc 33 g/dL (31-36); Mean Corpuscular Hemoglobin 35 pg (27-31); Mean Corpuscular Volume 106 fL (80-97); Mean Platelet Volume 7.3 fL (7.4-10.4); Nucleated Red Blood Cells % 0.1; Platelet Count 271 10^3/uL (150-450); Red Blood Count 3.21 10^6 /uL (3.70-4.87); Red Cell Distribution Width 14 % (10.5-15); White Blood Count 6.8 10^3/uL (3.5-10.8)
[2018-06-22 06:16] LABS: BUN/Creatinine Ratio 21.3 (8-20); Calcium 9.1 mg/dL (8.6-10.3); EGFR African American 73.5 (>60); EGFR Non-African American 60.7 (>60); Potassium 4.3 mmol/L (3.5-5.0)
[2018-06-22] MEDS: Allopurinol TAB* 100 MG PO SCH (07:33)
[2018-06-22] MEDS: Escitalopram * 5 MG TAB PO SCH (07:33)
[2018-06-22] MEDS ORDERED: Clindamycin 900 MG IVPREMIX(* 900 MG/50 ML SDV IV ONE (08:00)
[2018-06-22] MEDS ORDERED: Diazepam TAB(*) 5 MG PO ONE (08:00)
--- NOTE | 2018-06-22 14:51 | PN ---
Subjective Date of Service: 06/22/18 Interval History: VS: intermittent HTN Tele: 1st degree HB Lab: slightly low Hgb Pt PPM insertion is delayed, but plan is still for insertion today. Pt states that she has had no syncope since admission. She denies CP, SOB, dizziness/ lightheadedness. Pt is anxious to have PPM inserted, but, otherwise, has no complaints. Objective Active Medications: Acetaminophen (Tylenol Tab*) 650 mg PO Q4H PRN Acetaminophen/Butalbital/Caffeine (Fioricet Tab*) 1 tab PO DAILY PRN Allopurinol (Zyloprim Tab*) 100 mg PO DAILY ELLYN Chlorhexidine Gluconate (Peridex Mouth Wash 0.12%*) 15 ml SWISH SPIT TID PRN Cyclobenzaprine HCl (Flexeril Tab*) 10 mg PO Q8HR PRN Escitalopram Oxalate (Lexapro *) 5 mg PO DAILY ELLYN; Protocol Heparin Sodium (Porcine) (Heparin Vial(*)) 5,000 units SUBCUT Q8H ELLYN Sodium Chloride (Ns 0.9% 1000 Ml) 1,000 mls @ 75 mls/hr IV PER RATE ELLYN Ondansetron HCl (Zofran Inj*) 4 mg IV Q4H PRN Tramadol HCl (Ultram*) 50 mg PO Q8H PRN Vital Signs: Temp Pulse Resp BP Pulse Ox 98.6 F 70 16 156/67 96 06/22/18 15:28 06/22/18 15:28 06/22/18 15:44 06/22/18 15:28 06/22/18 15:28 Oxygen Devices in Use Now: None Appearance: Pt is laying in bed with HOB elevated. She is in no acute distress. She is pleasant and cooperative. Eyes: No Scleral Icterus, PERRLA Ears/Nose/Mouth/Throat: NL Teeth, Lips, Gums, Clear Oropharnyx, Mucous Membranes Moist Neck: NL Appearance and Movements; NL JVP, Trachea Midline Respiratory: Symmetrical Chest Expansion and Respiratory Effort, Clear to Auscultation Cardiovascular: NL Sounds; No Murmurs; No JVD, RRR, No Edema Abdominal: NL Sounds; No Tenderness; No Distention, No Hepatosplenomegaly Neurological: Alert and Oriented x 3 Result Diagrams: 06/22/18 05:06 06/22/18 05:06 Microbiology and Other Data: Microbiology 06/19/18 06:00 Nasal Screen MRSA (PCR) - Final Nasal Mrsa Not Detected Diagnostic Imaging: *[facility]* [place] [address] Fax #: [phone] Transthoracic Echocardiogram Patient: Reba Grullon Height: 65 in / S 165.1 cm : 1935 Weight: 124.7 lb / Study Date: 06/19/2018 56.7 kg Age: 82 BP: 158 / 70 Gender: F BMI/BSA: 20.8 kg/m^2 HR: 73 bpm / 1.62 m^2 *Bariatric Physician: * Candice Lind *Referring Physician: * Poppy Jones *Reading Physician: * Marley De Santiago Indications: Syncope. History: Murmur. Risk factors: Hypertension. Conclusions Summary: 1. Impressions: No previous study was available for comparison. 2. Left ventricle: The cavity size is normal. Wall thickness is normal. Systolic function is normal. The estimated ejection fraction is 60-65%. There is no consistent Doppler evidence of clinically significant diastolic dysfunction. 3. Ventricular septum: There is a prominent septal knuckle measuring 1.6 cm. 4. Mitral valve: There is mild regurgitation. 5. Tricuspid valve: There is mild-moderate regurgitation. Study data: Transthoracic echocardiogram. Procedure: Transthoracic echocardiography was performed. Image quality was fair. Complete 2D, spectral Doppler, and color flow Doppler. This report is only to be considered final once signed by the Provider(s) as displayed in the "<Electronically Signed by >" field (s). Absence of a signature indicates the report is in a draft status and still needs to be finalized. In the event this document was created by someone other than the signing Provider, the individual initiating the document will be listed in the "Entered by:" or "Dictated by:" castelan. Assess/Plan/Problems-Billing Assessment: This is an 82 year old female that presented to ED with complaint of syncopal episode and noted to Mobitz II who is awaiting PPM. - Patient Problems (1) Syncope and collapse Comment: - no further epsiodes - Found to have Mobitz II. asymptomatic. Cardiology notified. Plan for pacemaker placement today - Cardiology consult appreciated - continue telemetry (2) CKD (chronic kidney disease) Comment: - Was a patient of Dr. Rashid in the past - With elevated K, now within normal range - Creatinine also back to normal range - Recommend low K diet and outpatient follow up with Dr. 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 Bill discussed w/ daughter mariana neurology and neurosurgery consulted; surgery will not be offered continue PT (4) Hx of calcium pyrophosphate deposition disease (CPPD) Comment: - Stable, no pain at present, continue home regimen (5) Osteoarthritis Comment: - Home pain control regimen (6) Hyperkalemia Current Visit: Yes Status: Acute Code(s): E87.5 - HYPERKALEMIA SNOMED Code (s): 40171118 Comment: - resolved (7) DVT prophylaxis Comment: - HSQ (8) Full code status Status and Disposition: [address] [place] [address]. Remain inpatient. Plan for pacer on Friday with likely discharge Friday.
[2018-06-22] MEDS ORDERED: fentaNYL* 50 MCG/ML 2 ML VIAL (100 MCG VIAL) ONE (16:30)
[2018-06-22] MEDS ORDERED: Midazolam* 1 MG/ML 5 ML VIAL (5 MG) ONE (16:30)
[2018-06-22] MEDS ORDERED: Lidocaine 1% INJ* 10 MG/ML 30 ML SDV ONE (16:30)
[2018-06-22] MEDS: traMADol TAB* 50 MG PO PRN (19:31)
[2018-06-22] MEDS: Acetaminophen TAB* 325 MG PO PRN (21:30)
[2018-06-22] MEDS: Clindamycin CAP* 150 MG PO SCH (21:31)
--- NOTE | 2018-06-22 22:47 | OP ---
CC: Dr. De Santiago * DATE OF OPERATION: 06/22/18 - ROOM #437 DATE OF : 35 SURGEON: Justyn Hunter MD. ANESTHESIA: Local anesthesia with conscious sedation. PRE-OP DIAGNOSES: Syncope, bradycardia, and asystole. POST-OP DIAGNOSES: Syncope, bradycardia, and asystole. OPERATIVE PROCEDURE: Dual-chamber pacemaker implantation. ESTIMATED BLOOD LOSS: Nil. COMPLICATIONS: None. INDICATIONS: Patient is an 82-year-old female who had 2 witnessed syncopal episodes at [facility]. When she came to the emergency room, she had a 5-second pause, which was documented in the emergency room. Over the weekend, patient also had episodes of second-degree heart block type II. Permanent pacemaker was recommended. DESCRIPTION OF PROCEDURE: Patient was brought to the procedure room in a fasting state. Informed consent had been obtained prior to the procedure. All labs were reviewed. Patient was placed supine on the procedure table. Her left deltopectoral area was cleaned and draped in the usual fashion. Lidocaine 1% was used for local anesthesia. The axillary vein was entered by a modified Seldinger technique and a guidewire was placed. A second guidewire was placed in the same technique. A 3 cm incision was made in the pectoral area. Blunt dissection was carried down to the pectoral fascia and a pocket was fashioned for the pacemaker. Over the first guidewire, a 7-Malagasy sheath introducer was placed, through which a right ventricular lead was advanced to the RV septum. The right ventricular lead is a Medtronic model 5076, serial #[id number] that had a R-wave sensitivity of 5, impedance 1170 ohms, threshold 1.1 volts at 0.5 msec. The ventricular lead was sutured to the pectoral fascia. Over the second guidewire, a 7-Malagasy sheath introducer was placed, through which a right atrial lead was advanced to the high right atrium. The right atrial lead is a Medtronic model 5076, serial #[id number] and had a P-wave sensitivity of 1.5, impedance 550 ohms, threshold 1.6 volts at 0.5 msec. The atrial lead was sutured to the pectoral fascia. The pocket was flushed with normal saline. A generator was attached appropriately to the atrioventricular lead. The generator is a Medtronic model W1DR01, serial #[id number]. The device was placed in the pocket. The surgical incision was closed in three layers. Patient was returned to the holding area in stable condition. [id number]/[facility] #: [id number] WEN
[2018-06-23] MEDS: traMADol TAB* 50 MG PO PRN (03:58)
[2018-06-23] MEDS: Clindamycin CAP* 150 MG PO SCH ×2 (05:39→13:26)
[2018-06-23] MEDS: Heparin VIAL(*) 5000 UNITS/ML VIAL (FIVE THOUSAND) SUBCUT SCH ×2 (05:40→13:26)
[2018-06-23 06:20] LABS: BUN/Creatinine Ratio 25.3 (8-20); Calcium 8.7 mg/dL (8.6-10.3); EGFR African American 75.4 (>60); EGFR Non-African American 62.3 (>60); Potassium 4.3 mmol/L (3.5-5.0)
[2018-06-23] MEDS: Acetaminophen TAB* 325 MG PO PRN (09:00)
[2018-06-23] MEDS: Escitalopram * 5 MG TAB PO SCH (09:01)
[2018-06-23] MEDS: Allopurinol TAB* 100 MG PO SCH (09:02)
--- NOTE | 2018-06-23 09:14 | PN ---
Subjective Date of Service: 06/23/18 - syncope, 4-5 second sinuse pause Interval History: Spoke to LUIS ENRIQUE Alberts, no events last night. Patient is lying in bed eating breakfast upon entering room with daughter at bedside. Daughter is inquiring about PT/OT and is concerned that the patient might need rehab given prior to this she was a full assist at [employer] and now she is more limited given LUE limitations. Patient denies sob, dizziness, palpitations, reports incisional pain Medications Active Medications: Acetaminophen (Tylenol Tab*) 650 mg PO Q4H PRN PRN Reason: FEVER/PAIN Last Admin: 06/22/18 21:30 Dose: 650 mg Acetaminophen/Butalbital/Caffeine (Fioricet Tab*) 1 tab PO DAILY PRN PRN Reason: MIGRAINE HEADACHE Last Admin: 06/20/18 11:10 Dose: 1 tab Allopurinol (Zyloprim Tab*) 100 mg PO DAILY ELLYN Last Admin: 06/22/18 07:33 Dose: 100 mg Chlorhexidine Gluconate (Peridex Mouth Wash 0.12%*) 15 ml SWISH SPIT TID PRN PRN Reason: PER PROTOCOL Clindamycin HCl (Cleocin Cap*) 150 mg PO Q8HR ELLYN Stop: 06/24/18 23:59 Last Admin: 06/23/18 05:39 Dose: 150 mg Cyclobenzaprine HCl (Flexeril Tab*) 10 mg PO Q8HR PRN PRN Reason: SPASMS Escitalopram Oxalate (Lexapro *) 5 mg PO DAILY ELLYN; Protocol Last Admin: 06/22/18 07:33 Dose: 5 mg Heparin Sodium (Porcine) (Heparin Vial(*)) 5,000 units SUBCUT Q8H ELLYN Last Admin: 06/23/18 05:40 Dose: 5,000 units Ondansetron HCl (Zofran Inj*) 4 mg IV Q4H PRN PRN Reason: NAUSEA/VOMITING Tramadol HCl (Ultram*) 50 mg PO Q8H PRN PRN Reason: PAIN Last Admin: 06/23/18 03:58 Dose: 50 mg Objective Vital Signs: Temp Pulse Resp BP Pulse Ox 97.4 F 77 16 129/65 95 06/23/18 08:02 06/23/18 08:02 06/23/18 08:02 06/23/18 08:02 06/23/18 08:02 Oxygen Devices in Use Now: None Appearance: NAD, A+O x3, cooperative with exam Ears/Nose/Mouth/Throat: NL Teeth, Lips, Gums, Mucous Membranes Moist Neck: NL Appearance and Movements; NL JVP, Trachea Midline Respiratory: Symmetrical Chest Expansion and Respiratory Effort, Clear to Auscultation Cardiovascular: NL Sounds; No Murmurs; No JVD, - - left anterior chest incison site is intact with [address], no evidence of hematoma, inflamation, bleeding or oozing. dressing changed. tender to palpation. Skin: No Rash or Ulcers Neurological: Alert and Oriented x 3 Lines/Tubes/Other Access: Clean, Dry and Intact Peripheral IV Laboratory Results: 06/22/18 05:06 06/23/18 05:29 INR (Anticoag Therapy) 1.00 (0.82-1.09) 06/22/18 05:06 APTT 29.1 seconds (26.0-36.3) 06/18/18 19:02 Total Bilirubin 0.30 mg/dL (0.2-1.0) 06/18/18 19:02 AST 18 U/L (13-39) 06/18/18 19:02 ALT 16 U/L (7-52) 06/18/18 19:02 Alkaline Phosphatase 79 U/L (34-104) 06/18/18 19:02 B-Natriuretic Peptide 68 pg/mL (<=100) 06/18/18 19:02 Total Protein 7.1 g/dL (6.4-8.9) 06/18/18 19:02 Albumin 4.2 g/dL (3.2-5.2) 06/18/18 19:02 Globulin 2.9 g/dL (2-4) 06/18/18 19:02 Albumin/Globulin Ratio 1.4 (1-3) 06/18/18 19:02 TSH 6.02 mcIU/mL (0.34-5.60) H 06/18/18 19:02 06/18/18 06/18/18 19:02 23:56 Troponin I 0.01 0.01 Laboratory Results - last 24 hr 06/23/18 05:29 Sodium 139 Potassium 4.3 Chloride 109 Carbon Dioxide 23 Anion Gap 7 BUN 22 Creatinine 0.87 Est GFR ( Amer) 75.4 Est GFR (Non-Af Amer) 62.3 BUN/Creatinine Ratio 25.3 H Glucose 85 Calcium 8.7 Diagnostic Imaging: CXR 06/13/2018; Dr. Hunter reviewed personally this morning. lead placement appropriate. radiology final read is pending to r/o pneumothorax EKG Data: 06/23/2018; /ACCOUNT REVIEW SPECIALIST rate 85 Assessment/Plan #1 Syncope with period of asystole. Troponin negative x2. Patient is s/p DC PPM with Dr. Hunter on 06/22/2018. Device site is intact with six yanely in situ , no evidence of pocket hematoma. no oozing noted on exam. dressing was changed. CXR this morning revealed adequate lead placement. Await final CXR read to r/p pneumothorax. Device check today reviewed. atrial pacing threshold 0.4ms, ventricular lead pacing threshold 0.4ms. She will need to be on Clindamycin 150mg Po TID x3 days. follow up appointment on 06/30/2018 jayesh Manuel GARBAGE PERSON at 11:15am at our [facility] location for wound evaluation and staple removal. Please refer to discharge activity for activity restriction. #2 h/o HTN; Bp stable today not on hypertensive medications #3 Wheelchair dependency; will differ to hospitalist. Patient's daughter inquired about PT/OT evaluation to determine if patient would benefit from rehab. She was predominantly wheelchair bound prior hospitalization. I spoke with Saba DESHPANDE with hospitalist service about this. #4 Disposition pending course, will likely sign off as long as CXR is negative for pneumothorax. will d/w Dr. Hunter. Patient full code Attending: Justyn Hunter
--- NOTE | 2018-06-23 14:01 | PN ---
Subjective Date of Service: 06/23/18 Interval History: VS: WNL Labs: BMP WNL Pt states that she is doing ok. She has pain in L upper shoulder area at the incision site. She also c/o b/l LE "jerking." She was given a flexeril recently, which appears to have resolved the problem. Pt denies CP, SOB, presyncope/syncope, fever cough, abd pain, n/v/d/c, pain in LE. Pt typically uses walker for ambulation, and not has restricted LUE use after PPM insertion. Will require PT/OT eval. 1500: Pt is Easy Lift or Jesus at baseline at [facility]. She will require Jesus at [facility], due to LUE restriction. This makes her appropriate for discharge back to [facility] today. Objective Active Medications: Acetaminophen (Tylenol Tab*) 650 mg PO Q4H PRN Acetaminophen/Butalbital/Caffeine (Fioricet Tab*) 1 tab PO DAILY PRN Allopurinol (Zyloprim Tab*) 100 mg PO DAILY [facility] Chlorhexidine Gluconate (Peridex Mouth Wash 0.12%*) 15 ml SWISH SPIT TID PRN Clindamycin HCl (Cleocin Cap*) 150 mg PO Q8HR ELLYN Cyclobenzaprine HCl (Flexeril Tab*) 10 mg PO Q8HR PRN Escitalopram Oxalate (Lexapro *) 5 mg PO DAILY [facility]; Protocol Heparin Sodium (Porcine) (Heparin Vial(*)) 5,000 units SUBCUT Q8H ELLYN Ondansetron HCl (Zofran Inj*) 4 mg IV Q4H PRN Tramadol HCl (Ultram*) 50 mg PO Q8H PRN Vital Signs: Temp Pulse Resp BP Pulse Ox 97.4 F 77 16 129/65 95 06/23/18 08:02 06/23/18 08:02 06/23/18 13:26 06/23/18 08:02 06/23/18 08:02 Oxygen Devices in Use Now: None Appearance: Pt is laying in bed with HOB elevated. She appears tired and is grimacing, but in no acute distress. Eyes: No Scleral Icterus Ears/Nose/Mouth/Throat: Clear Oropharnyx, Mucous Membranes Moist Neck: NL Appearance and Movements; NL JVP, Trachea Midline Respiratory: Symmetrical Chest Expansion and Respiratory Effort, Clear to Auscultation Cardiovascular: NL Sounds; No Murmurs; No JVD, RRR, No Edema, - - PPM insertion site without erythema, drainaige; slight ecchymosis. Dressing CDI. Abdominal: NL Sounds; No Tenderness; No Distention, No Hepatosplenomegaly Extremities: No Edema, No Clubbing, Cyanosis, - - UE and LE digits with deformity (chronic). LUE immobilized in sling. B/l LE still and without jerking throughout exam. Radial, pedal pulses palpable. Neurological: Alert and Oriented x 3 Result Diagrams: 06/22/18 05:06 06/23/18 05:29 Microbiology and Other Data: Microbiology 06/19/18 06:00 Nasal Screen MRSA (PCR) - Final Nasal Mrsa Not Detected Diagnostic Imaging: *[facility]* [place] [address] Fax #: [phone] Transthoracic Echocardiogram Patient: Reba Grullon Height: 65 in / S 165.1 cm : 1935 Weight: 124.7 lb / Study Date: 06/19/2018 56.7 kg Age: 82 BP: 158 / 70 Gender: F BMI/BSA: 20.8 kg/m^2 HR: 73 bpm / 1.62 m^2 *Gear Roller: * Candice Lind *Referring Physician: * Poppy Jones *Reading Physician: * Marley De Santiago Indications: Syncope. History: Murmur. Risk factors: Hypertension. Conclusions Summary: 1. Impressions: No previous study was available for comparison. 2. Left ventricle: The cavity size is normal. Wall thickness is normal. Systolic function is normal. The estimated ejection fraction is 60-65%. There is no consistent Doppler evidence of clinically significant diastolic dysfunction. 3. Ventricular septum: There is a prominent septal knuckle measuring 1.6 cm. 4. Mitral valve: There is mild regurgitation. 5. Tricuspid valve: There is mild-moderate regurgitation. Study data: Transthoracic echocardiogram. Procedure: Transthoracic echocardiography was performed. Image quality was fair. Complete 2D, spectral Doppler, and color flow Doppler. This report is only to be considered final once signed by the Provider(s) as displayed in the "<Electronically Signed by >" field (s). Absence of a signature indicates the report is in a draft status and still needs to be finalized. In the event this document was created by someone other than the signing Provider, the individual initiating the document will be listed in the "Entered by:" or "Dictated by:" castelan. Assess/Plan/Problems-Billing Assessment: This is an 82 year old female that presented to ED with complaint of syncopal episode and noted to Mobitz II who is awaiting PPM. - Patient Problems (1) Syncope and collapse Comment: - no further epsiodes - Found to have Mobitz II; PPM insertion on 06/22/2017 - Cardiology consult appreciated - continue telemetry -PT/OT eval ordered, due to RUE restriction after PPM insertion; will then discuss placement options (2) CKD (chronic kidney disease) Comment: - Was a patient of Dr. Rashid in the past - With elevated K, now within normal range - Creatinine also back to normal range - Recommend low K diet and outpatient follow up with Dr. 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 Bill discussed w/ daughter mariana neurology and neurosurgery consulted; surgery will not be offered continue PT (4) Hx of calcium pyrophosphate deposition disease (CPPD) Comment: - Stable, no pain at present, continue home regimen (5) Osteoarthritis Comment: - Home pain control regimen (6) Hyperkalemia Comment: - resolved (7) DVT prophylaxis Comment: - HSQ (8) Full code status Status and Disposition: [address] [place] [address]. Remain inpatient. Plan for pacer on Friday with likely discharge Friday.
[2018-06-23 16:12] VITALS: BP 140/62
--- NOTE | 2018-06-23 17:38 | DS ---
CC: Dr. Veronica Baca; Dr. Justyn Hunter * DISCHARGE SUMMARY: DATE OF ADMISSION: 06/19/18 DATE OF DISCHARGE: 06/23/18 PRIMARY CARE PROVIDER: Dr. Veronica Baca. INSULATION BOARD CALENDER OPERATOR: Dr. Justyn Hunter. ATTENDING PHYSICIAN: Dr. Ana Laura Bill * (dictated by CHARLEE Stuart). PRIMARY DIAGNOSIS: Syncope, sinus pause of 4 to 5 seconds noted on telemetry. SECONDARY DIAGNOSES: 1. Hypertension. 2. 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 The patient is wheelchair bound with some ambulation. 3. Severe lumbar spinal stenosis. 4. Mild dementia. 5. Calcium pyrophosphate deposition disease. 6. Migraines. 7. Osteoarthritis. 8. Depression. 9. Chronic kidney disease, stage 3, previously documented. 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 11. Hyperlipidemia. 12. Chronic obstructive pulmonary disease. 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 STUDIES WHILE IN THE HOSPITAL: Brain CT, 06/18/18, impression: There is a stable age-related diffuse cerebral volume loss and chronic microvascular ischemic disease. No acute intracranial pathology. As previously seen, there is mucosal thickening and possible fluid levels in the sphenoid sinus, cannot exclude acute sphenoid sinusitis. Chest x-ray, 06/18/18, impression: Hyperinflated lung castelan with no definite pneumonia. Transthoracic echocardiogram, 06/19/18, summary: No previous study was available for comparison. Left ventricle, the cavity size is normal. Wall thickness is normal. Systolic function is normal. The estimated ejection fraction is 60% to 65%. There is no consistent Doppler evidence of clinically significant diastolic dysfunction. Ventricular septum, there is a prominent septal knuckle measuring 1.6 cm. Mitral valve, there is mild mitral regurgitation. Tricuspid valve, there is mild-moderate regurgitation. Chest x-ray, 06/22/18, impression: Status post pacemaker placement, no evidence for acute finding. Chest x-ray, 06/23/18, impression: No evidence for pneumothorax or pulmonary edema. DISCHARGE MEDICATIONS: Home medications: 1. Denosumab 60 mg subcu q.6 months. 2. Cyclobenzaprine 10 mg p.o. q.8 hours p.r.n. spasms. 3. Chlorhexidine mouthwash 0.12%, 15 mL swish and spit t.i.d. p.r.n. 4. Refresh Tears 1 drop to both eyes at bedtime. 5. Fioricet 1 tab p.o. daily p.r.n. migraine. 6. Allopurinol 100 mg p.o. daily. 7. Acetaminophen 650 mg p.o. q.6 hours p.r.n. 8. Tramadol 50 mg p.o. q.8 hours p.r.n., maximum daily dose 150 mg. 9. Turmeric 450-50 mg capsule 1 cap p.o. daily. 10. Prevagen 10 mg p.o. daily. 11. Gabapentin 100 mg p.o. t.i.d. 12. Escitalopram 5 mg p.o. daily. 13. Vitamin B complex 1 cap p.o. daily. New home medication: Clindamycin 150 mg p.o. t.i.d. x8 doses, starting at 2100 tonight. Discontinued home medication: Ramipril 10 mg p.o. daily. HISTORY OF PRESENT ILLNESS/HOSPITAL COURSE: Ms. Grullon is an 82-year-old female with a past medical history of hypertension, who presented to the ER on after 2 syncopal events. She is a resident of [facility]. She states that she awoke and realized that she had passed out as she was wheeling to lunch, she then passed out again. She notes she did not fall out of her wheelchair or hit her head. The patient was transported to the emergency room. She was placed on telemetry. She was noted to have prolonged pauses including one that was greater than 6 seconds. She was also noted to have hyperkalemia for which she was given 3 units of insulin, 25 g of dextrose, and albuterol. The patient was then admitted to the hospitalist services. Cardiology was consulted. They offered conservative treatment with a 30- day event monitor versus permanent pacemaker insertion. The patient initially opted for event monitor, but later changed her mind and was scheduled for a permanent pacemaker insertion on . Pacemaker was inserted without incident. On the day of discharge, the patient was noted to have pain in the left arm area, but there were no signs of infection at the site including no erythema or discharge. There was small amount of ecchymosis at the area. On admission, the patient was noted to have hyperkalemia. Throughout her stay, her potassium was monitored daily and did not elevate outside of normal limits. The patient's chart noted that she has a history of chronic kidney disease and was a patient of Dr. Rashid's in the past. At discharge, she was recommended to follow a low-potassium diet and to seek outpatient followup with Dr. Rashid. There was some concern that the patient would not receive the appropriate physical therapy at [facility] where she currently lives. This was discussed with [facility] Occupational Therapy. [facility] states that the patient is typically an easy lift or a Jesus lift and requires a wheelchair most times with very infrequent ambulation. At this time, since the patient has just received a pacemaker, the left upper extremity is restricted and she is unable to use it times approximately 1 month. Due to this, she will be requiring Jesus lift at all times, which [facility] can provide. The patient will continue her physical therapy on Tuesdays and as is her usual schedule. At the time of discharge, the patient denies chest pain or shortness of breath. She states that the anterior chest at the site of pacemaker insertion is tender. She has had no episodes of presyncope or syncope since admission. She denies fever, cough, abdominal pain, nausea, vomiting, diarrhea, constipation, or pain in the lower extremities. Prior to discharge, she complains of bilateral lower extremity jerking. For this, she was given a Flexeril and her symptoms were resolved. Ms. Grullon is stable for discharge. PHYSICAL EXAMINATION: Vital Signs: Temperature 97.4 temporal, heart rate 72, respiratory rate 16, oxygen saturation 95% on room air, blood pressure 129/65. General: Ms. Grullon is a well-developed, well-nourished, frail-appearing, elderly white woman, who is sitting up in bed. She is asleep upon entering, but wakes easily. She appears to be in no acute distress. HEENT: Visual castelan are grossly intact. Pupils are equally round and reactive to light. Extraocular movements intact. Sclerae without icterus. Hearing is grossly intact. Oral mucous membranes are moist. Pharynx is clear. Cardiovascular: Regular rate and rhythm with S1, S2 present. There are no murmurs, rubs, or gallops. There is no JVD. Pacemaker insertion site is without erythema or drainage. There is slight ecchymosis surrounding the area. The dressing is clean, dry, and intact. Respiratory: Symmetrical chest expansion with no use of accessory muscles. Lungs are clear to auscultation bilaterally. There are no rhonchi, wheezes, or rales. Abdomen: Bowel sounds in all quadrants. The abdomen is soft and nontender to palpation. There is no hepatosplenomegaly. Extremities: Skin is warm and smooth bilaterally. There is no clubbing, cyanosis, or edema. The upper and lower extremity digits are with chronic deformity. Left upper extremity is immobilized in sling. Bilateral lower extremities are still and without jerking throughout the exam. Radial and pedal pulses are palpable bilaterally. Neuro: The patient is awake. She is alert and oriented x3. She is able to move all of her extremities except for left upper extremity, which is immobilized. DISCHARGE PLAN: Ms. Grullon will be discharged to [facility]. ACTIVITY: Left upper extremity immobilizer x3 to 4 weeks. Do not lift left upper extremity overhead or lift more than 5 pounds. Otherwise, activity as tolerated. DIET: Heart healthy. MEDICATIONS: As above. EDUCATION: 1. Follow up with primary care provider in 4 to 7 days. 2. Follow up with Babita Manuel NP, on 06/30/18 at 11:15 a.m. at the [facility] office location. Staple removal to be addressed at that time. 3. Follow up with Dr. Rashid in 1 to 2 weeks. 4. Continue to monitor potassium closely. 5. Continue clindamycin until prescription finished (3 days), next dose is 2100. 6. Discontinue ramipril. 7. Return to the ER or nearest hospital if you experience any worsening of symptoms, signs or symptoms of infection at the site of pacemaker insertion, chest discomfort, shortness of breath, dizziness, lightheadedness, high fevers, chills, night sweats, loss of consciousness, or any other worrisome signs or symptoms. This is a summarized report of a complex medical history and hospital stay. For further details, please see the entire medical record. TIME SPENT: Approximately 35 minutes was spent on this discharge, greater than half that time was spent [id number] with the patient discussing discharge plans and instructions. CHARLEE MILNER [id number]/[facility] #: [id number] [facility]ergio
== END 2018-06-23 17:40 | DRG 242 ==
LOC: ED 18:14 → EDHOLD 06-19 00:39 → ICU 06-19 05:45 → MEDTELE 06-19 10:53
PROVIDERS: ADMIT Pediatrics; ATTEND Internal Medicine
PROC: 02H63JZ Insertion of Pacemaker Lead into Right Atrium, Percutaneous Approach (ICD-10-PCS; 2018-06-22)
PROC: 02HK3JZ Insertion of Pacemaker Lead into Right Ventricle, Percutaneous Approach (ICD-10-PCS; 2018-06-22)
PROC: 0JH606Z Insertion of Pacemaker, Dual Chamber into Chest Subcutaneous Tissue and Fascia, Open Approach (ICD-10-PCS; principal; 2018-06-22 16:30)
DX: I49.5 Sick sinus syndrome (principal); I46.2 Cardiac arrest due to underlying cardiac condition; G82.20 Paraplegia, unspecified; E87.5 Hyperkalemia; J44.9 Chronic obstructive pulmonary disease, unspecified; K58.9 Irritable bowel syndrome, unspecified; M19.90 Unspecified osteoarthritis, unspecified site; M06.9 Rheumatoid arthritis, unspecified; M81.0 Age-related osteoporosis without current pathological fracture; Z96.611 Presence of right artificial shoulder joint; Z96.652 Presence of left artificial knee joint; Z96.642 Presence of left artificial hip joint; G43.909 Migraine, unspecified, not intractable, without status migrainosus; Z96.1 Presence of intraocular lens; M48.061 Spinal stenosis, lumbar region without neurogenic claudication; F32.9 Major depressive disorder, single episode, unspecified; M48.02 Spinal stenosis, cervical region; F03.90 Unspecified dementia, unspecified severity, without behavioral disturbance, psychotic disturbance, mood disturbance, and anxiety; N18.3 Chronic kidney disease, stage 3 (moderate); I12.9 Hypertensive chronic kidney disease with stage 1 through stage 4 chronic kidney disease, or unspecified chronic kidney disease; E78.5 Hyperlipidemia, unspecified; M06.4 Inflammatory polyarthropathy; I44.1 Atrioventricular block, second degree; M11.20 Other chondrocalcinosis, unspecified site; I08.1 Rheumatic disorders of both mitral and tricuspid valves; Z85.828 Personal history of other malignant neoplasm of skin; Z98.42 Cataract extraction status, left eye; Z88.0 Allergy status to penicillin; Z88.8 Allergy status to other drugs, medicaments and biological substances; Z98.41 Cataract extraction status, right eye; Z99.3 Dependence on wheelchair; Z86.718 Personal history of other venous thrombosis and embolism
CPT/HCPCS: 33208; 36415; 70450; 71045; 71046; 80048; 80053; 81003; 83605; 83735; 83880; 84439; 84443; 84484; 85025; 85027; 85610; 85730; 87641; 93005; 93306; 99156; 99157; 99285; A9270-GY; C1785; C1892; C1898; J1644; J2250; J3010

== ENCOUNTER 2021-06-01 12:04 | Observation (INO) ==
[2021-06-01] MEDS ORDERED: NS 0.9% 1000 ml BAG 1,000 ML IV ONE (12:05)
[2021-06-01] MEDS ORDERED: Iodixanol (CONTRAST) 320 MG/ML 100 ML SDV IV ONE (12:23)
[2021-06-01 12:53] LABS: ABS Basophils 0.1 10^3/ul (0-0.2); ABS Eosinophils 0.3 10^3/ul (0-0.6); ABS Lymphocytes 2.3 10^3/ul (1.0-4.8); ABS Monocytes 0.7 10^3/ul (0-0.8); ABS Neutrophils 4.5 10^3/ul (1.5-7.7); Eosinophil % 3.3 %; Hematocrit 34 % (35-47); Hemoglobin 11.4 g/dL (12.0-16.0); Lymphocyte % 29.3 %; Mean Corpuscular HGB Conc 34 g/dL (31-36); Mean Corpuscular Hemoglobin 36 pg (27-31); Mean Corpuscular Volume 108 fL (80-97); Mean Platelet Volume 8.3 fL (7.4-10.4); Nucleated Red Blood Cells % 0.1; Platelet Count 227 10^3/uL (150-450); Red Blood Count 3.13 10^6 /uL (3.70-4.87); Red Cell Distribution Width 16 % (10-15); White Blood Count 7.8 10^3/uL (3.5-10.8)
[2021-06-01 13:10] LABS: High Sens Troponin Baseline 9 pg/mL (<15)
[2021-06-01 13:14] LABS: ALT 15 U/L (7-52); Albumin 3.3 g/dL (3.2-5.2); Albumin/Globulin Ratio 1.7 (1-3); Alkaline Phosphatase 74 U/L (35-149); Blood Urea Nitrogen 26 mg/dL (6-24); CO2 Carbon Dioxide 26 mmol/L (22-32); Calcium 9.1 mg/dL (8.6-10.3); Chloride 105 mmol/L (101-111); Cholesterol 172 mg/dL; Glucose 82 mg/dL (70-100); HDL Cholesterol 59.1 mg/dL; LDL Cholesterol 98 mg/dL; Sodium 137 mmol/L (135-145); Total Protein 5.3 g/dL (6.4-8.9); Triglycerides 74 mg/dL; eGFR CKD-EPI 52.1 (>60)
[2021-06-01 13:23] LABS: Anion Gap 6 mmol/L (2-11)
[2021-06-01 13:33] LABS: Activated Partial Thrombo Time 33.9 seconds (26.0-38.0); INR 1.25 (0.86-1.15)
[2021-06-01 14:21] LABS: Urine Appearance Clear; Urine Bilirubin Negative (Negative); Urine Blood Negative (Negative); Urine Color Yellow; Urine Glucose Negative (Negative); Urine Ketones Negative (Negative); Urine Nitrite Negative (Negative); Urine Protein Negative (Negative); Urine Specific Gravity 1.029 (1.002-1.030); Urine Urobilinogen Negative (Negative)
[2021-06-01 14:26] LABS: High Sensitivity Troponin 1 Hr 9 pg/mL (<15)
[2021-06-01] MEDS: CARBOXYMETHYLCELLULOSE SODIUM 0.5% BOTH EYES SCH (22:18)
[2021-06-02 07:44] LABS: Calcium 9.3 mg/dL (8.6-10.3); Magnesium 1.9 mg/dL (1.9-2.7); Potassium 4.3 mmol/L (3.5-5.0); eGFR CKD-EPI 46.7 (>60)
[2021-06-02 08:49] LABS: ABS Basophils 0.1 10^3/ul (0-0.2); ABS Eosinophils 0.3 10^3/ul (0-0.6); ABS Lymphocytes 2.4 10^3/ul (1.0-4.8); ABS Monocytes 0.6 10^3/ul (0-0.8); ABS Neutrophils 4.7 10^3/ul (1.5-7.7); Eosinophil % 3.2 %; Hematocrit 36 % (35-47); Hemoglobin 12.2 g/dL (12.0-16.0); Lymphocyte % 29.5 %; Mean Corpuscular HGB Conc 34 g/dL (31-36); Mean Corpuscular Hemoglobin 36 pg (27-31); Mean Corpuscular Volume 108 fL (80-97); Mean Platelet Volume 8.4 fL (7.4-10.4); Platelet Count 239 10^3/uL (150-450); Red Blood Count 3.34 10^6 /uL (3.70-4.87); Red Cell Distribution Width 16 % (10-15)
[2021-06-02] MEDS: CARBOXYMETHYLCELLULOSE SODIUM 0.5% BOTH EYES SCH (20:58)
[2021-06-03 06:41] LABS: Anion Gap 9 mmol/L (2-11); Blood Urea Nitrogen 25 mg/dL (6-24); CO2 Carbon Dioxide 26 mmol/L (22-32); Calcium 9.4 mg/dL (8.6-10.3); Chloride 107 mmol/L (101-111); Glucose 85 mg/dL (70-100); Potassium 4.1 mmol/L (3.5-5.0); Sodium 142 mmol/L (135-145); eGFR CKD-EPI 46.2 (>60)
[2021-06-03 07:59] LABS: ALT 14 U/L (7-52); AST 20 U/L (13-39); Albumin 3.5 g/dL (3.2-5.2); Albumin/Globulin Ratio 1.8 (1-3); Alkaline Phosphatase 80 U/L (35-149); Total Protein 5.5 g/dL (6.4-8.9)
[2021-06-03] MEDS ORDERED: Acetaminophen IV 1 GM/100ML 100 ML IV PRN (13:40)
[2021-06-03] MEDS ORDERED: Dextran 70/Hypromellose Tears Eye Drops 15 ml BTL (for Artificials Tears) BOTH EYES SCH (21:00)
[2021-06-04 07:10] LABS: Calcium 9.2 mg/dL (8.6-10.3); Magnesium 1.7 mg/dL (1.9-2.7); Potassium 3.9 mmol/L (3.5-5.0); eGFR CKD-EPI 53.9 (>60)
[2021-06-04] MEDS ORDERED: Magnesium Sulfate IV 3 GM in NS 0.9% 100 ml BAG 100 ML IVPB ONE (07:15)
[2021-06-04] MEDS ORDERED: Magnesium Sulfate 2 GM IV (Premix) IVPB ONE (08:00)
[2021-06-04] MEDS ORDERED: Magnesium Sulfate 1 GM IV 1 GM/100 ML BAG IV ONE (09:00)
[2021-06-04 11:42] VITALS: BP 145/74
== END 2021-06-04 15:15 ==
LOC: ED 12:04 → MEDTELE 12:04 → SUATTDRO 17:57 → MEDTELE 18:10
PROVIDERS: ADMIT Internal Medicine; ATTEND Internal Medicine

== ENCOUNTER 2021-12-03 10:48 | Observation (INO) ==
[2021-12-03] MEDS ORDERED: Lactated Ringers 1000 ml BAG 1,000 ML IV ONE (10:49)
[2021-12-03 11:42] LABS: ABS Basophils 0.1 10^3/ul (0-0.2); ABS Lymphocytes 1.6 10^3/ul (1.0-4.8); ABS Monocytes 0.8 10^3/ul (0-0.8); ABS Neutrophils 9.2 10^3/ul (1.5-7.7); Eosinophil % 0.2 %; Hematocrit 35 % (35-47); Hemoglobin 11.2 g/dL (12.0-16.0); Lymphocyte % 13.9 %; Mean Corpuscular HGB Conc 32 g/dL (31-36); Mean Corpuscular Hemoglobin 36 pg (27-31); Mean Corpuscular Volume 111 fL (80-97); Mean Platelet Volume 9.4 fL (7.4-10.4); Nucleated Red Blood Cells % 0.2; Platelet Count 148 10^3/uL (150-450); Red Blood Count 3.11 10^6 /uL (3.70-4.87); Red Cell Distribution Width 18 % (10-15); White Blood Count 11.7 10^3/uL (3.5-10.8)
[2021-12-03 12:21] LABS: ALT 32 U/L (7-52); AST 39 U/L (13-39); Albumin 3.5 g/dL (3.2-5.2); Albumin/Globulin Ratio 1.2 (1-3); Alkaline Phosphatase 124 U/L (35-149); Blood Urea Nitrogen 51 mg/dL (6-24); CO2 Carbon Dioxide 24 mmol/L (22-32); Calcium 9.3 mg/dL (8.6-10.3); Globulin 2.9 g/dL (2-4); Glucose 75 mg/dL (70-100); Total Protein 6.4 g/dL (6.4-8.9); eGFR CKD-EPI 31.9 (>60)
[2021-12-03 12:23] LABS: Anion Gap 11 mmol/L (2-11); Chloride 113 mmol/L (101-111); Potassium 5.7 mmol/L (3.5-5.0); Sodium 148 mmol/L (135-145)
[2021-12-03] MEDS ORDERED: Prothrombin Complex Conc. DOSE = Units Factor IX (nine) IV SLOW PU ONE (14:28)
[2021-12-03 15:52] LABS: TSH Ultra Thyroid Stim Horm 4.85 mcIU/mL (0.34-5.60)
[2021-12-03 16:03] LABS: Vitamin B12 > 1450 pg/mL (180-914)
[2021-12-03 16:14] LABS: Urine Appearance Cloudy; Urine Bilirubin Negative (Negative); Urine Blood Negative (Negative); Urine Color Yellow; Urine Glucose Negative (Negative); Urine Ketones Negative (Negative); Urine Nitrite Positive (Negative); Urine Protein 1+(30 mg/dL) (Negative); Urine Specific Gravity 1.015 (1.002-1.030); Urine Urobilinogen Negative (Negative)
[2021-12-03 16:19] LABS: Urine Bacteria Absent (Absent); Urine Red Blood Cell Absent (Absent); Urine Squamous Epithelial Cell Present (Absent); Urine White Blood Cell 3+(>20/hpf) (Absent)
[2021-12-03] MEDS ORDERED: D5LR 1000 ml BAG 1,000 ML IV ONE (16:29)
[2021-12-03] MEDS ORDERED: NS 0.9% 500 ml BAG 500 ML IV ONE (16:36)
[2021-12-03 16:59] LABS: T4, Total 11.41 mcg/dL (6.09-12.23)
[2021-12-03] MEDS ORDERED: cefTRIAXone VIAL 1,000 MG in NS 0.9% 50 ML 50 ML IVPB SCH (17:00)
[2021-12-03 17:09] LABS: Total T3 82 ng/dL (87-178)
[2021-12-03] MEDS ORDERED: cefTRIAXone 1 gm/50 mL D5W 1 GM/50 ML BAG IV ONE (17:11)
[2021-12-03] MEDS: cefTRIAXone 1 gm/50 mL D5W 1 GM/50 ML BAG IV SCH (17:15)
[2021-12-03 20:34] LABS: Calcium 8.7 mg/dL (8.6-10.3); Potassium 5.3 mmol/L (3.5-5.0); eGFR CKD-EPI 32.2 (>60)
[2021-12-03] MEDS: D5LR 1000 ml BAG 1,000 ML IV SCH (21:20)
[2021-12-03 22:34] LABS: Calcium 8.8 mg/dL (8.6-10.3)
[2021-12-03 22:37] LABS: Potassium 5.1 mmol/L (3.5-5.0)
[2021-12-03 22:39] LABS: eGFR CKD-EPI 31.7 (>60)
[2021-12-04] MEDS: Levothyroxine 100 MCG/5 ML VIAL IV SCH (05:42)
[2021-12-04 06:24] LABS: Hematocrit 31 % (35-47); Hemoglobin 10.1 g/dL (12.0-16.0); Mean Corpuscular HGB Conc 32 g/dL (31-36); Mean Corpuscular Hemoglobin 36 pg (27-31); Mean Corpuscular Volume 112 fL (80-97); Mean Platelet Volume 10.5 fL (7.4-10.4); Platelet Count 141 10^3/uL (150-450); Red Blood Count 2.78 10^6 /uL (3.70-4.87); Red Cell Distribution Width 18 % (10-15); White Blood Count 12.7 10^3/uL (3.5-10.8)
[2021-12-04 06:43] LABS: Magnesium 2.4 mg/dL (1.9-2.7)
[2021-12-04 06:49] LABS: Phosphorus 3.1 mg/dL (2.5-5.0)
[2021-12-04 07:24] LABS: Calcium 8.6 mg/dL (8.6-10.3); Potassium 4.9 mmol/L (3.5-5.0)
[2021-12-04] MEDS: D5LR 1000 ml BAG 1,000 ML IV SCH ×2 (07:29→18:15)
[2021-12-04 07:30] LABS: eGFR CKD-EPI 30.1 (>60)
[2021-12-04] MEDS ORDERED: Lactated Ringers 500 ml BAG 500 ML IV SCH (09:00)
[2021-12-04] MEDS: cefTRIAXone 1 gm/50 mL D5W 1 GM/50 ML BAG IV SCH (17:03)
[2021-12-04] MEDS ORDERED: Ondansetron ODT 4 mg TAB 4 MG TAB SL PRN (18:27)
[2021-12-04] MEDS ORDERED: Morphine ORAL CONCENTRATE 5 MG/0.25 ML ORAL.SYRIN SL PRN (18:27)
[2021-12-04] MEDS ORDERED: Senna TAB 8.6 mg TAB PO PRN (18:27)
[2021-12-04 18:37] VITALS: BP 125/108
[2021-12-04] MEDS ORDERED: Scopolamine 1 mg/72hr PATCH TRANSDERM SCH (19:00)
[2021-12-04] MEDS ORDERED: Cefepime ADVAN 1 GM in NS 0.9% 50 ML 50 ML IVPB SCH (21:00)
[2021-12-04] MEDS ORDERED: Cefepime 1 GM in Dextrose 1 GM/50 ML BAG IV SCH (22:00)
[2021-12-05] MEDS: Levothyroxine 100 MCG/5 ML VIAL IV SCH (05:46)
== END 2021-12-05 13:00 | disposition hospice, home (50) ==
LOC: EDHOLD 10:48 → ED 10:48 → SUATTDRO 15:14 → MED 20:39
PROVIDERS: ADMIT Family Medicine; ATTEND Internal Medicine